=== PATIENT | female | born 1960 | race African-American/Black ===

== ENCOUNTER 2017-01-26 13:47 | Emergency (ER) | payer OTHER ==
[~2017-01-26] VITALS: Ht 162.6 cm; Wt 50.0 kg
[2017-01-26 13:49] VITALS: BP 112/72; PULSE 110; RESP 18; TEMP 98.9; O2SAT 98
--- NOTE | 2017-01-26 13:55 | PD ---
Physical Exam Time Seen by Provider: 13:55 Narrative 56 y/o female here with painful skin lesions on right lower leg. Vital signs reviewed. Seen at triage desk. Awaiting bed placement. Data Data Last Documented VS Vital Signs Date Time Temp Pulse Resp B/P (MAP) Pulse Ox O2 Delivery O2 Flow Rate FiO2 01/26/17 13:49 98.9 110 18 112/72 (85) 98 Room Air MDM Medical Record Reviewed: Yes Supervised Visit with DIANN: Ayden Vickers Jan 26, 2017 13:55
[2017-01-26] MEDS ORDERED: VENTAER INH (16:14)
[2017-01-26] MEDS ORDERED: PLAV75TA29 PO (16:14)
[2017-01-26] MEDS ORDERED: CYCL1TAB29 PO (16:34)
[2017-01-26] MEDS ORDERED: PROT40TA PO (16:34)
[2017-01-26] MEDS ORDERED: CARV3.12 PO (16:34)
[2017-01-26] MEDS ORDERED: FERR325T8 PO (16:34)
--- NOTE | 2017-01-26 16:42 | PD ---
HPI Chief Complaint: Skin Problem Time Seen by Provider: 16:14 Travel History International Travel<30 days: No Contact w/Intl Traveler<30days: No Traveled to known affect area: No History of Present Illness HPI 56-year-old female with history of diabetes, chronic leg edema, chronic right leg wounds, presents to the ER today because of ongoing leg wound since November, states that her wound care nurse Center in. She denies any chest pains, shortness of breath, or any other symptoms. Modifying Factors: None Associated Signs & Symptoms: Chronic leg: His and chronic leg edema Risk Factors: Diabetic PFSH Past Medical History Asthma: Yes Diabetes: Yes Patient Takes Glucophage: No Diminished Hearing: Yes (R perforated ear drum ) ?: Not Social History Alcohol Use: Yes (daily) Tobacco Use: Yes (1/2 ppd) Substance Use: No Allergies-Medications (Allergen,Severity, Reaction): Coded Allergies: No Known Allergies (Unverified , 01/26/17) Reported Meds & Prescriptions Reported Meds & Active Scripts Active Reported Flexeril (Cyclobenzaprine HCl) 10 Mg Tab 10 Mg PO TID Carvedilol 3.125 Mg Tab 3.125 Mg PO BID Ferrous Sulfate 325 Mg (65 Mg Iron) Tablet 325 Mg PO BIDPC Protonix (Pantoprazole Sodium) 40 Mg Tab 40 Mg PO DAILY Ventolin Hfa 18 GM Inh (Albuterol Sulfate) Unknown Strength Aer Unknown Dose INH Q4H PRN Plavix (Clopidogrel Bisulfate) Unknown Strength Tab Unknown Dose PO DAILY Review of Systems Except as stated in HPI: all other systems reviewed are Neg Physical Exam Narrative GENERAL: Well-developed middle age -[place] female patient currently in mild distress. Awake and oriented 3. SKIN: Focused skin assessment warm/dry. HEAD: Atraumatic. Normocephalic. EYES: Pupils equal and round. No scleral icterus. No injection or drainage. ENT: No nasal bleeding or discharge. Mucous membranes pink and moist. NECK: Trachea midline. No JVD. CARDIOVASCULAR: Regular rate and rhythm. No murmur appreciated. RESPIRATORY: No accessory muscle use. Clear to auscultation. Breath sounds equal bilaterally. GASTROINTESTINAL: Abdomen soft, non-tender, nondistended. Hepatic and splenic margins not palpable. MUSCULOSKELETAL: No obvious deformities. No clubbing. No cyanosis. +1 bilateral pitting edema the legs. There are 1-2 cm circular shallow ulcers and wounds to the right leg and bautista area. No significant erythema identified. NEUROLOGICAL: Awake and alert. No obvious cranial nerve deficits. Motor grossly within normal limits. Normal speech. PSYCHIATRIC: Appropriate mood and affect; insight and judgment normal. Data Data Last Documented VS Vital Signs Date Time Temp Pulse Resp B/P (MAP) Pulse Ox O2 Delivery O2 Flow Rate FiO2 01/26/17 13:49 98.9 110 18 112/72 (85) 98 Room Air Orders Orders Complete Blood Count With Diff (01/26/17 16:14) Comprehensive Metabolic Panel (01/26/17 16:14) Prothrombin Time / Inr (Pt) (01/26/17 16:14) Act Partial Throm Time (Ptt) (01/26/17 16:14) Us Leg Venous Doppler (01/26/17 16:14) Acetaminophen (Tylenol) (01/26/17 18:15) Labs Laboratory Tests Test 01/26/17 16:50 White Blood Count 5.7 TH/MM3 Red Blood Count 3.59 MIL/MM3 Hemoglobin 9.8 GM/DL Hematocrit 30.0 % Mean Corpuscular Volume 83.6 FL Mean Corpuscular Hemoglobin 27.3 PG Mean Corpuscular Hemoglobin Concent 32.7 % Red Cell Distribution Width 29.8 % Platelet Count 211 TH/MM3 Mean Platelet Volume 6.5 FL Neutrophils (%) (Auto) 53.2 % Lymphocytes (%) (Auto) 28.6 % Monocytes (%) (Auto) 13.2 % Eosinophils (%) (Auto) 4.5 % Basophils (%) (Auto) 0.5 % Neutrophils # (Auto) 3.0 TH/MM3 Lymphocytes # (Auto) 1.6 TH/MM3 Monocytes # (Auto) 0.8 TH/MM3 Eosinophils # (Auto) 0.3 TH/MM3 Basophils # (Auto) 0.0 TH/MM3 CBC Comment AUTO DIFF Differential Comment AUTO DIFF CONFIRMED Platelet Estimate NORMAL Platelet Morphology Comment NORMAL Prothrombin Time 10.3 SEC Prothromb Time International Ratio 0.9 RATIO Activated Partial Thromboplast Time 25.2 SEC Blood Urea Nitrogen 9 MG/DL Creatinine 0.73 MG/DL Random Glucose 90 MG/DL Total Protein 9.2 GM/DL Albumin 2.7 GM/DL Calcium Level 8.7 MG/DL Alkaline Phosphatase 115 U/L Aspartate Amino Transf (AST/SGOT) 60 U/L Alanine Aminotransferase (ALT/SGPT) 21 U/L Total Bilirubin 0.4 MG/DL Sodium Level 137 MEQ/L Potassium Level 3.9 MEQ/L Chloride Level 102 MEQ/L Carbon Dioxide Level 28.5 MEQ/L Anion Gap 7 MEQ/L Estimat Glomerular Filtration Rate 100 ML/MIN MDM Medical Decision Making Medical Screen Exam Complete: Yes Emergency Medical Condition: Yes Medical Record Reviewed: Yes Interpretation(s) Laboratory Tests Test 01/26/17 16:50 Red Blood Count 3.59 MIL/MM3 (4.00-5.30) Hemoglobin 9.8 GM/DL (11.6-15.3) Hematocrit 30.0 % (35.0-46.0) Red Cell Distribution Width 29.8 % (11.6-17.2) Mean Platelet Volume 6.5 FL (7.0-11.0) Monocytes (%) (Auto) 13.2 % (0.0-8.0) Eosinophils (%) (Auto) 4.5 % (0.0-4.0) Total Protein 9.2 GM/DL (6.4-8.2) Albumin 2.7 GM/DL (3.4-5.0) Aspartate Amino Transf (AST/SGOT) 60 U/L (15-37) Last 24 hours Impressions Lower Extremity Ultrasound 01/26/17 1614 Signed Impressions: Service Date/Time: Tuesday, January 26, 2017 16:21 - CONCLUSION: Negative for deep venous thrombosis. Inguinal adenopathy Erickson Rolle MD FACR Differential Diagnosis Chronic leg wounds/chronic leg edema/rule out DVT Narrative Course Ultrasound did not show any signs of DVT. Lab work did not show significant leukocytosis. This appears to be a chronic wound that is poorly healing because of patient's diabetes and PVD. My plan would be to give her antibiotics for the mild cellulitis. Pulses are present and she is neurovascularly intact. She will need to follow-up with primary care physician regarding ongoing issues. She should return for any worsening in pain, redness , fevers, or new symptoms as needed. The plan was discussed with the patient and she states understanding. Diagnosis Primary Impression: Chronic ulcer of leg Med/Other Pt SpecificInfo: Prescription(s) given Scripts Sulfamethoxazole-Trimethoprim (Bactrim DS) 800-160 Mg Tab 1 TAB PO BID for Infection, #14 TAB 0 Refills Prov: Susan Castro MD 01/26/17 Acetaminophen (Tylenol) 325 Mg Tab 650 MG PO Q6H Y for PAIN SCALE 1 TO 10, #20 TAB 0 Refills Prov: Susan Castro MD 01/26/17 Disposition: 01 DISCHARGE HOME Condition: Stable Susan Castro MD Jan 26, 2017 16:42
--- NOTE | 2017-01-26 16:57 | RADRPT ---
EXAM DATE/TIME: 01/26/2017 16:21 [facility] COMPARISON: No previous studies available for comparison. INDICATIONS : Right leg pain. MEDICAL HISTORY : Right perforated ear drum. Asthma. Diabetes. Right leg pain and open wounds. SURGICAL HISTORY : None. ENCOUNTER: Initial ACUITY: 1 week PAIN SCORE: 5/10 LOCATION: Right leg. TECHNIQUE: Venous ultrasound of the leg was performed from the inguinal ligament to the proximal calf. Real-mary e, color Doppler and spectral tracing, compression and augmentation techniques were used. FINDINGS: There is normal compressibility of the deep venous system from the inguinal region to the proximal ca lf. No echogenic clot is seen in the lumen of the common femoral, femoral, popliteal, and posterior tibial veins. There is a normal response of the venous system to proximal and distal augmentation an d respiration. Inguinal adenopathy measuring up to 2.6 cm is noted. CONCLUSION: Negative for deep venous thrombosis. Inguinal adenopathy Erickson Rolle MD FACR on January 26, 2017 at 16:55 Board Certified Radiologist. This report was verified electronically.
[2017-01-26 17:14] LABS: BASOPHIL % 0.5 % (0.0-2.0); EOSINOPHIL # 0.3 TH/MM3 (0-0.4); EOSINOPHIL % 4.5 % (0.0-4.0); LYMPH % 28.6 % (9.0-44.0); LYMPHOCYTE # 1.6 TH/MM3 (1.0-4.8); MEAN CELL VOLUME 83.6 FL (80.0-100.0); MEAN CORPUSCULAR HEMOGLOBIN 27.3 PG (27.0-34.0); MEAN CORPUSCULAR HGB CONC 32.7 % (32.0-36.0); MONO % 13.2 % (0.0-8.0); NEUT % 53.2 % (16.0-70.0); PLATELET COUNT 211 TH/MM3 (150-450); RED BLOOD COUNT 3.59 MIL/MM3 (4.00-5.30); RED CELL DISTRIBUTION WIDTH 29.8 % (11.6-17.2); WHITE BLOOD COUNT 5.7 TH/MM3 (4.0-11.0)
[2017-01-26 17:20] LABS: HEMO FLAGS AUTO DIFF
[2017-01-26 17:23] LABS: INTERNATIONAL NORMALIZED RATIO 0.9 RATIO; PROTHROMBIN TIME - PATIENT 10.3 SEC (9.8-11.6)
[2017-01-26 17:24] LABS: APTT (PATIENT) 25.2 SEC (24.3-30.1)
[2017-01-26 17:37] LABS: ALKALINE PHOSPHATASE 115 U/L (45-117); TOTAL BILIRUBIN ADULT 0.4 MG/DL (0.2-1.0)
[2017-01-26 17:41] LABS: ALT (GPT) 21 U/L (10-53); ANION GAP 7 MEQ/L (5-15); AST (GOT) 60 U/L (15-37); BICARBONATE 28.5 MEQ/L (21.0-32.0); BLOOD UREA NITROGEN 9 MG/DL (7-18); CHLORIDE 102 MEQ/L (98-107); GLOMERULAR FILTRATION RATE 100 ML/MIN (>89); SODIUM (NA) 137 MEQ/L (136-145)
[2017-01-26 17:42] LABS: POTASSIUM 3.9 MEQ/L (3.5-5.1)
[2017-01-26 17:57] LABS: PLATELET ESTIMATE SMEAR NORMAL (NORMAL); PLATELET MORPHOLOGY NORMAL (NORMAL); SCAN/DIFF AUTO DIFF CONFIRMED
[2017-01-26] MEDS ORDERED: BACT800T5 PO (18:05)
[2017-01-26] MEDS ORDERED: TYLE325T PO (18:05)
[2017-01-26] MEDS ORDERED: ACETAMINOPHEN 325 MG TAB PO ONE (18:15)
== END 2017-01-26 18:50 | disposition home or self-care (01) ==
LOC: NEPE 13:47
DX: E11.622 Type 2 diabetes mellitus with other skin ulcer (principal); L97.919 Non-pressure chronic ulcer of unspecified part of right lower leg with unspecified severity; I73.9 Peripheral vascular disease, unspecified; L03.115 Cellulitis of right lower limb; J45.909 Unspecified asthma, uncomplicated
CPT/HCPCS: 80053; 85025; 85610; 85730; 93971; 99284

== ENCOUNTER 2017-03-17 15:15 | Inpatient (IN) | payer OTHER ==
[~2017-03-17] VITALS: Ht 165.1 cm; Wt 54.0 kg
[~2017-03-17 15:15] MED LIST: BACT800T5 PO; CARV3.12 PO; CYCL10TA PO; FERR325T18 PO; PLAV75TA29 PO; PROT40TA PO; TYLE325T PO; VENTAER INH
[2017-03-17 15:34] VITALS: BP 199/84; PULSE 104; RESP 21; TEMP 98.4; O2SAT 99
[2017-03-17] MEDS ORDERED: ONDANSETRON HCL 4 MG/2 ML VIAL IV PUSH ONE (16:15)
[2017-03-17] MEDS ORDERED: VANCOMYCIN INJ 1,000 MG in SODIUM CHLOR 0.9% 250 ML INJ 250 ML IV ONE (16:15)
[2017-03-17] MEDS ORDERED: MORPHINE SULFATE 4 MG/ML INJ IV PUSH ONE (16:15)
--- NOTE | 2017-03-17 16:43 | PD ---
HPI Chief Complaint: Skin Problem Time Seen by Provider: 15:43 Travel History International Travel<30 days: No Contact w/Intl Traveler<30days: No Traveled to known affect area: No History of Present Illness HPI 56-year-old female that presents to the ED for evaluation of bilateral ear infections as well as right leg wounds. Per patient she's had chronic wounds in the right leg for years. Per patient she's not been following anybody since Dr. Ambrosio phillips of seeing patient's in the community clinic. She is to follow with parent she was get treatment for it at she has not taken any medications. Per patient she is to be on Plavix. She denies any history of diabetes. She states that she's been having some body aches and sweats. She's been trying to do wound care on her own and she is noted that the wound has been purulent and from the looks of it not well taking care of. Patient has paper towels on her wounds to cover them. Patient states that she has been 10 out of 10 pain on the right leg. She also complains of bilateral ear pain and purulence coming out of the ears. She states that some blood has been noted. Per patient his been ongoing for a couple days. She has not seen anybody for this. She takes no medications. No fevers chills or sweats. No other medical issues. Denies any chest pain or shortness of breath. PFSH Past Medical History Asthma: Yes Cardiovascular Problems: Yes (HTN) Diabetes: Yes Diminished Hearing: Yes (R perforated ear drum ) ?: Not Social History Alcohol Use: Yes (daily) Tobacco Use: Yes (1/2 ppd) Substance Use: No Allergies-Medications (Allergen,Severity, Reaction): Coded Allergies: No Known Allergies (Unverified , 01/26/17) Reported Meds & Prescriptions Reported Meds & Active Scripts Active Bactrim DS (Sulfamethoxazole-Trimethoprim) 800-160 Mg Tab 1 Tab PO BID Tylenol (Acetaminophen) 325 Mg Tab 650 Mg PO Q6H PRN Reported Flexeril (Cyclobenzaprine HCl) 10 Mg Tab 10 Mg PO TID Carvedilol 3.125 Mg Tab 3.125 Mg PO BID Ferrous Sulfate 325 Mg (65 Mg Iron) Tablet 325 Mg PO BIDPC Protonix (Pantoprazole Sodium) 40 Mg Tab 40 Mg PO DAILY Ventolin Hfa 18 GM Inh (Albuterol Sulfate) Unknown Strength Aer Unknown Dose INH Q4H PRN Plavix (Clopidogrel Bisulfate) Unknown Strength Tab Unknown Dose PO DAILY Review of Systems Except as stated in HPI: all other systems reviewed are Neg Physical Exam Narrative GENERAL: SKIN: Warm and dry. HEAD: Atraumatic. Normocephalic. EYES: Pupils equal and round. No scleral icterus. No injection or drainage. ENT: No nasal bleeding or discharge. Mucous membranes pink and moist. Tongue is midline. No uvula deviation. TMs appear to be intact bilaterally. Patient has bilateral drainage from both years. Patient is having inflammation on both ears. NECK: Trachea midline. No JVD. CARDIOVASCULAR: Regular rate and rhythm. No murmurs, S3, S4. RESPIRATORY: No accessory muscle use. Clear to auscultation. Breath sounds equal bilaterally. GASTROINTESTINAL: Abdomen soft, non-tender, nondistended. Hepatic and splenic margins not palpable. MUSCULOSKELETAL: Extremities without clubbing, cyanosis, or edema. No obvious deformities. Patient does have significant skin ulcers and wounds to the right leg on the anterior and posterior aspect. Purulence noted. Very foul smelling. 2+ pulses in the lower extremities bilaterally. Tenderness to palpation. Sensation appears to be intact. NEUROLOGICAL: Awake and alert. No obvious cranial nerve deficits. Motor grossly within normal limits. Five out of 5 muscle strength in the arms and legs. Normal speech. PSYCHIATRIC: Appropriate mood and affect; insight and judgment normal. Data Data Last Documented VS Vital Signs Date Time Temp Pulse Resp B/P (MAP) Pulse Ox O2 Delivery O2 Flow Rate FiO2 03/17/17 15:34 98.4 104 21 199/84 (122) 99 Orders Orders Electrocardiogram (03/17/17 15:52) Complete Blood Count With Diff (03/17/17 15:52) Comprehensive Metabolic Panel (03/17/17 15:52) Prothrombin Time / Inr (Pt) (03/17/17 15:52) Act Partial Throm Time (Ptt) (03/17/17 15:52) Blood Culture (03/17/17 15:52) C-Reactive Protein (Crp) (03/17/17 15:52) Urinalysis - C+S If Indicated (03/17/17 15:52) Magnesium (Mg) (03/17/17 15:52) Wound Culture And Gram Stain (03/17/17 15:52) Iv Access Insert/Monitor (03/17/17 15:52) Ecg Monitoring (03/17/17 15:52) Oximetry (03/17/17 15:52) Vancomycin Inj (Vancomycin Inj) (03/17/17 16:15) Morphine Inj (Morphine Inj) (03/17/17 16:15) Ondansetron Inj (Zofran Inj) (03/17/17 16:15) Lactic Acid Sepsis Protocol (03/17/17 16:03) Tibia/Fibula (Ap/Lat) (03/17/17 ) MDM Medical Decision Making Medical Screen Exam Complete: Yes Emergency Medical Condition: Yes Medical Record Reviewed: Yes Differential Diagnosis Otitis externa versus otitis media versus cellulitis versus infected wounds versus osteomyelitis Narrative Course 56-year-old female that presents to the ED for evaluation of bilateral ear infections. Patient was properly examined and was found to have signs and symptoms consistent with otitis externa bilaterally as well as chronically infected wound. The wound does appear to be more severe than the ears. Patient is tachycardic and states having some subjective fevers. At this time I recommend labs and imaging. Patient agrees. Patient was started on IV pain medication and antibiotics. Case will be signed out to incoming provider pending disposition a likely admission. Vipin Arzate Mar 17, 2017 16:43
[2017-03-17 16:58] LABS: AUTOMATED NEUTROPHIL # 4.5 TH/MM3 (1.8-7.7); BASOPHIL % 0.4 % (0.0-2.0); EOSINOPHIL # 0.1 TH/MM3 (0-0.4); EOSINOPHIL % 1.8 % (0.0-4.0); LYMPH % 25.5 % (9.0-44.0); LYMPHOCYTE # 1.8 TH/MM3 (1.0-4.8); MEAN CELL VOLUME 95.1 FL (80.0-100.0); MEAN CORPUSCULAR HEMOGLOBIN 32.2 PG (27.0-34.0); MEAN CORPUSCULAR HGB CONC 33.8 % (32.0-36.0); MONO % 9.5 % (0.0-8.0); NEUT % 62.8 % (16.0-70.0); PLATELET COUNT 243 TH/MM3 (150-450); RED BLOOD COUNT 2.84 MIL/MM3 (4.00-5.30); RED CELL DISTRIBUTION WIDTH 23.6 % (11.6-17.2); WHITE BLOOD COUNT 7.2 TH/MM3 (4.0-11.0)
[2017-03-17 17:01] LABS: HEMO FLAGS AUTO DIFF
--- NOTE | 2017-03-17 17:01 | PD ---
Physical Exam Date Seen by Provider: Mar 17, 2017 Time Seen by Provider: 17:01 Narrative 56-year-old Afro-Bhut[place] female seen in the ambulance [facility] by Vipin Norton with ongoing lower extremity open wounds and probable cellulitis as well as bilateral otitis externa. Labs have been ordered and placed on this patient I received her into the med bed echo 55. Labs are pending, and wound care is ordered. Patient has no known drug allergies. No history of diabetes, no history of sickle cell, but is supposed to be on Plavix, and continues to smoke. She has had some chills but denies specific fever complaints. Data Data Last Documented VS Vital Signs Date Time Temp Pulse Resp B/P (MAP) Pulse Ox O2 Delivery O2 Flow Rate FiO2 03/17/17 17:29 98 Room Air 03/17/17 17:29 103 03/17/17 17:24 97.7 15 Orders Orders Electrocardiogram (03/17/17 15:52) Complete Blood Count With Diff (03/17/17 15:52) Comprehensive Metabolic Panel (03/17/17 15:52) Prothrombin Time / Inr (Pt) (03/17/17 15:52) Act Partial Throm Time (Ptt) (03/17/17 15:52) Blood Culture (03/17/17 15:52) C-Reactive Protein (Crp) (03/17/17 15:52) Urinalysis - C+S If Indicated (03/17/17 15:52) Magnesium (Mg) (03/17/17 15:52) Wound Culture And Gram Stain (03/17/17 15:52) Iv Access Insert/Monitor (03/17/17 15:52) Ecg Monitoring (03/17/17 15:52) Oximetry (03/17/17 15:52) Vancomycin Inj (Vancomycin Inj) (03/17/17 16:15) Morphine Inj (Morphine Inj) (03/17/17 16:15) Ondansetron Inj (Zofran Inj) (03/17/17 16:15) Lactic Acid Sepsis Protocol (03/17/17 16:03) Tibia/Fibula (Ap/Lat) (03/17/17 ) Wound Care (03/17/17 16:57) Wound Culture And Gram Stain (03/17/17 16:57) Piperacil-Tazo 4.5 Gm Premix (Zosyn 4.5 (03/17/17 17:30) Sepsis Workup Initiated (03/17/17 ) Lactic Acid Sepsis Protocol (03/17/17 17:20) Sodium Chlor 0.9% 1000 Ml Inj (Ns 1000 M (03/17/17 17:20) Sodium Chlor 0.9% 1000 Ml Inj (Ns 1000 M (03/17/17 17:20) Sodium Chlor 0.9% 1000 Ml Inj (Ns 1000 M (03/17/17 17:20) Labs Laboratory Tests Test 03/17/17 16:15 03/17/17 16:21 03/17/17 17:25 03/17/17 18:00 White Blood Count 7.2 TH/MM3 Red Blood Count 2.84 MIL/MM3 Hemoglobin 9.2 GM/DL Hematocrit 27.0 % Mean Corpuscular Volume 95.1 FL Mean Corpuscular Hemoglobin 32.2 PG Mean Corpuscular Hemoglobin Concent 33.8 % Red Cell Distribution Width 23.6 % Platelet Count 243 TH/MM3 Mean Platelet Volume 6.8 FL Neutrophils (%) (Auto) 62.8 % Lymphocytes (%) (Auto) 25.5 % Monocytes (%) (Auto) 9.5 % Eosinophils (%) (Auto) 1.8 % Basophils (%) (Auto) 0.4 % Neutrophils # (Auto) 4.5 TH/MM3 Lymphocytes # (Auto) 1.8 TH/MM3 Monocytes # (Auto) 0.7 TH/MM3 Eosinophils # (Auto) 0.1 TH/MM3 Basophils # (Auto) 0.0 TH/MM3 CBC Comment AUTO DIFF Differential Comment AUTO DIFF CONFIRMED Platelet Estimate NORMAL Platelet Morphology Comment NORMAL Spherocytes OCC Acanthocytes OCC Prothrombin Time 10.7 SEC Prothromb Time International Ratio 1.0 RATIO Activated Partial Thromboplast Time 29.1 SEC Blood Urea Nitrogen 7 MG/DL Creatinine 0.63 MG/DL Random Glucose 78 MG/DL Total Protein 8.9 GM/DL Albumin 2.6 GM/DL Calcium Level 8.5 MG/DL Magnesium Level 1.8 MG/DL Alkaline Phosphatase 112 U/L Aspartate Amino Transf (AST/SGOT) 40 U/L Alanine Aminotransferase (ALT/SGPT) 19 U/L Total Bilirubin 0.3 MG/DL Sodium Level 134 MEQ/L Potassium Level 4.0 MEQ/L Chloride Level 102 MEQ/L Carbon Dioxide Level 25.2 MEQ/L Anion Gap 7 MEQ/L Estimat Glomerular Filtration Rate 119 ML/MIN C-Reactive Protein 0.83 MG/DL Lactic Acid Level 3.2 mmol/L 1.2 mmol/L Urine Color LIGHT-YELLOW Urine Turbidity CLEAR Urine pH 6.0 Urine Specific [place] 1.009 Urine Protein 30 mg/dL Urine Glucose (UA) NEG mg/dL Urine Ketones NEG mg/dL Urine Occult Blood NEG Urine Nitrite NEG Urine Bilirubin NEG Urine Urobilinogen LESS THAN 2.0 MG/DL Urine Leukocyte Esterase LARGE Urine RBC 3 /hpf Urine WBC 5 /hpf Urine Bacteria RARE /hpf Urine Mucus FEW /lpf Urine Yeast (Budding) OCC Microscopic Urinalysis Comment CULT NOT INDICATED MDM Medical Record Reviewed: Yes Supervised Visit with DIANN: Yes Differential Diagnosis Peripheral vascular disease. Chronic ulcers to the right lower extremity. Cellulitis. Osteomyelitis. Otitis externa. Narrative Course CBC shows WBC of 7.2, RBC of 2.84, hemoglobin 9.2, hematocrit of 27.0. Patient is noted to have spherocytes and acanthocytes. Coagulation studies are normal. Chemistries significant for sodium 134, C-reactive protein of 0.83, total protein 8.9, albumin is 2.6. First lactic acid is 3.2. Repeat lactic acid is 1.2 after 3 L of normal saline. Urinalysis shows 30 of protein, large leukocytes esterase, rare bacteria, few mucus, and occasional yeast. X-ray of the right lower extremity is unremarkable for osteomyelitis or free air. Blood cultures are pending. Patient was given 4.5 mg Zofran and 1000 mg vancomycin IV. Patient was discussed with the hospitalist who agreed to admit the patient for observation. Diagnosis Primary Impression: Cellulitis of right lower extremity without foot Additional Impression: Otitis externa Admitting Information Admitting Physician Requests: Observation Condition: Stable Markel Rodriguez Mar 17, 2017 17:01
[2017-03-17 17:09] LABS: APTT (PATIENT) 29.1 SEC (24.3-30.1); PROTHROMBIN TIME - PATIENT 10.7 SEC (9.8-11.6)
[2017-03-17] MEDS ORDERED: SODIUM CHLOR 0.9% 1000 ML INJ 100 ML IV ONE (17:20)
[2017-03-17] MEDS ORDERED: SODIUM CHLOR 0.9% 1000 ML INJ 1,000 ML IV ONE ×2 (17:20)
[2017-03-17 17:24] VITALS: BP 218/126; PULSE 100; RESP 15; TEMP 97.7; O2SAT 98
[2017-03-17 17:25] LABS: ALT (GPT) 19 U/L (10-53)
[2017-03-17 17:27] LABS: ALKALINE PHOSPHATASE 112 U/L (45-117); TOTAL BILIRUBIN ADULT 0.3 MG/DL (0.2-1.0)
[2017-03-17 17:29] VITALS: BP 168/83; PULSE 103; O2SAT 98
[2017-03-17] MEDS ORDERED: PIPERACIL-TAZO 4.5 GM PREMIX 100 ML IV ONE (17:30)
[2017-03-17 17:32] LABS: ANION GAP 7 MEQ/L (5-15); AST (GOT) 40 U/L (15-37); BICARBONATE 25.2 MEQ/L (21.0-32.0); BLOOD UREA NITROGEN 7 MG/DL (7-18); CHLORIDE 102 MEQ/L (98-107); GLOMERULAR FILTRATION RATE 119 ML/MIN (>89); MAGNESIUM 1.8 MG/DL (1.5-2.5); SODIUM (NA) 134 MEQ/L (136-145)
[2017-03-17 17:55] LABS: PLATELET ESTIMATE SMEAR NORMAL (NORMAL); PLATELET MORPHOLOGY NORMAL (NORMAL); SCAN/DIFF AUTO DIFF CONFIRMED
--- NOTE | 2017-03-17 17:57 | RADRPT ---
EXAM DATE/TIME: 03/17/2017 17:36 [facility] COMPARISON: No previous studies available for comparison. INDICATIONS : Right tibia/fibula inflammation and open wounds. MEDICAL HISTORY : Right perforated ear drum. Asthma. Diabetes. Right leg pain and open wounds. SURGICAL HISTORY : None. ENCOUNTER: Initial ACUITY: 1 year PAIN SCORE: 10/10 LOCATION: Right tibia/fibula FINDINGS: Two view examination of the right tibia demonstrates no evidence of fracture or dislocation. Bony mi neralization is normal. No retained foreign body is identified. CONCLUSION: 1. No acute bony abnormality identified. Jj Rolle MD on March 17, 2017 at 17:55 Board Certified Radiologist. This report was verified electronically.
[2017-03-17 17:59] LABS: BACTERIA, URINE RARE /hpf; BLOOD, URINE NEG (NEG); COMMENT (UR) CULT NOT INDICATED; CULTURE IF INDICATED CULT NOT INDICATED; GLUCOSE,URINE NEG (NEG); KETONE, URINE NEG (NEG); MUCUS URINE FEW /lpf (OCC); NITRITE,URINE NEG (NEG); URINE COLOR LIGHT-YELLOW (YELLW/STRAW)
[2017-03-17 18:03] LABS: ACANTHOCYTES OCC (NORMAL); SPHEROCYTES OCC (NORMAL)
[2017-03-17 18:43] LABS: LACTIC ACID GHOST NOT REPORTABLE
--- NOTE | 2017-03-17 19:25 | HHI.HP ---
[facility] Unknown Admission Diagnosis Diagnoses: (1) Cellulitis of leg, right Diagnosis: Principal (2) UTI (urinary tract infection) Diagnosis: Principal (3) HTN (hypertension) Diagnosis: Principal (4) Alcohol abuse Diagnosis: Principal (5) Tobacco abuse Diagnosis: Principal Travel History International Travel<30 Days: No Contact w/Intl Traveler <30 Da: No Traveled to Known Affected Are: No History of Present Illness This is a 56-year-old Homeless female with a PMH of HTN, Alcohol Abuse and Tobacco Abuse who presented to the ER with complaints of right lower extremity cellulitis. Previously following w/ Dr. Humphrey for wound care, however pt w/ poor follow-up and non-compliant. Reports worsening drainage from right leg for several days. Denies fever, chills or sick contacts. On arrival, BP 199/84 , HR 104, O2 sat 99% on RA, Afebrile. WBC normal. Normal neutrophil calm. Lactic Acid 3.2, repeat 1.2. CRP 0.83. INR 1.0. UA positive for UTI. Right Tib Fib X-ray with no acute abnormalities. S/p Wound/Blood Cultures in ER in addition to Vanc/Zosyn. Review of Systems Except as stated in HPI: all other systems reviewed are Neg ROS: 14 point review of systems otherwise negative. Past Family Social History Past Medical History PMH: HTN, Alcohol Abuse and Tobacco Abuse Past Surgical History PAST SURGICAL HISTORY: None Allergies: Coded Allergies: No Known Allergies (Unverified Allergy, Unknown, 03/17/17) Family History PAST FAMILY HISTORY: Reviewed. No h/o DM or CAD Social History PAST SOCIAL HISTORY: Drinks daily, 3-4 beers/day. Smokes 1/2ppd. Negative for drugs. Physical Exam Vital Signs Vital Signs Date Time Temp Pulse Resp B/P (MAP) Pulse Ox O2 Delivery O2 Flow Rate FiO2 03/17/17 17:29 98 Room Air 03/17/17 17:29 103 168/83 (111) 03/17/17 17:24 97.7 100 15 218/126 (156) 98 Room Air 03/17/17 15:34 98.4 104 21 199/84 (122) 99 Physical Exam PE: GENERAL: Malaise black female in no acute distress. HEENT: PERRLA, EOMI. No scleral icterus or conjunctival pallor. No lid lag or facial droop. CARDIOVASCULAR: Regular rate and rhythm. No obvious murmurs to auscultation. No chest tenderness to palpation. RESPIRATORY: No obvious rhonchi or wheezing. Clear to auscultation. Breath sounds equal bilaterally. GASTROINTESTINAL: Abdomen soft, non-tender, nondistended. BS normal. MUSCULOSKELETAL: Extremities without clubbing, cyanosis, or edema. No obvious deformities. RLE w/ clean dressing placed in ER, +ulcers w/ purulent drainage, foul smelling. Pulses intact. NEUROLOGICAL: Awake, alert and oriented x4. No focal neurologic deficits. Moving both upper and lower extremities spontaneously. Laboratory Laboratory Tests Test 03/17/17 16:15 03/17/17 16:21 03/17/17 17:25 03/17/17 18:00 White Blood Count 7.2 Red Blood Count 2.84 Hemoglobin 9.2 Hematocrit 27.0 Mean Corpuscular Volume 95.1 Mean Corpuscular Hemoglobin 32.2 Mean Corpuscular Hemoglobin Concent 33.8 Red Cell Distribution Width 23.6 Platelet Count 243 Mean Platelet Volume 6.8 Neutrophils (%) (Auto) 62.8 Lymphocytes (%) (Auto) 25.5 Monocytes (%) (Auto) 9.5 Eosinophils (%) (Auto) 1.8 Basophils (%) (Auto) 0.4 Neutrophils # (Auto) 4.5 Lymphocytes # (Auto) 1.8 Monocytes # (Auto) 0.7 Eosinophils # (Auto) 0.1 Basophils # (Auto) 0.0 CBC Comment AUTO DIFF Differential Comment AUTO DIFF CONFIRMED Platelet Estimate NORMAL Platelet Morphology Comment NORMAL Spherocytes OCC Acanthocytes OCC Prothrombin Time 10.7 Prothromb Time International Ratio 1.0 Activated Partial Thromboplast Time 29.1 Blood Urea Nitrogen 7 Creatinine 0.63 Random Glucose 78 Total Protein 8.9 Albumin 2.6 Calcium Level 8.5 Magnesium Level 1.8 Alkaline Phosphatase 112 Aspartate Amino Transf (AST/SGOT) 40 Alanine Aminotransferase (ALT/SGPT) 19 Total Bilirubin 0.3 Sodium Level 134 Potassium Level 4.0 Chloride Level 102 Carbon Dioxide Level 25.2 Anion Gap 7 Estimat Glomerular Filtration Rate 119 C-Reactive Protein 0.83 Lactic Acid Level 3.2 1.2 Urine Color LIGHT-YELLOW Urine Turbidity CLEAR Urine pH 6.0 Urine Specific Maiden 1.009 Urine Protein 30 Urine Glucose (UA) NEG Urine Ketones NEG Urine Occult Blood NEG Urine Nitrite NEG Urine Bilirubin NEG Urine Urobilinogen LESS THAN 2.0 Urine Leukocyte Esterase LARGE Urine RBC 3 Urine WBC 5 Urine Bacteria RARE Urine Mucus FEW Urine Yeast (Budding) OCC Microscopic Urinalysis Comment CULT NOT INDICATED Date/Time Source Procedure Growth Status 03/17/17 16:20 Blood Peripheral Aerobic Blood Culture Pending Received 03/17/17 16:20 Blood Peripheral Anaerobic Blood Culture Pending Received 03/17/17 17:00 Wound Leg Gram Stain - Final Resulted 03/17/17 17:00 Wound Leg Wound Culture Pending Resulted Result Diagram: 03/17/17 1615 03/17/17 1615 Caprini VTE Risk Assessment Caprini VTE Risk Assessment: Mod/High Risk (score >= 2) Caprini Risk Assessment Model Point Value = 1 Point Value = 2 Point Value = 3 Point Value = 5 Age 41-60 Minor surgery BMI > 25 kg/m2 Swollen legs Varicose veins or History of unexplained or recurrent spontaneous Oral contraceptives or hormone replacement Sepsis (< 1 month) Serious lung disease, including pneumonia (< 1 month) Abnormal pulmonary function Acute myocardial infarction Congestive heart failure (< 1 month) History of inflammatory bowel disease Medical patient at bed rest Age 61-74 Arthroscopic surgery Major open surgery (> 45 min) Laparoscopic surgery (> 45 min) Malignancy Confined to bed (> 72 hours) Immobilizing plaster cast Central venous access Age >= 75 History of VTE Family history of VTE Factor V Leiden Prothrombin [id number] Lupus anticoagulant Anticardiolipin antibodies Elevated serum homocysteine Heparin-induced thrombocytopenia Other congenital or acquired thrombophilia Stroke (< 1 month) Elective arthroplasty Hip, pelvis, or leg fracture Acute spinal cord injury (< 1 month) Prophylaxis Regimen Total Risk Factor Score Risk Level Prophylaxis Regimen 0-1 Low Early ambulation 2 Moderate Order ONE of the following: *Sequential Compression Device (SCD) *Heparin 5000 units SQ BID 3-4 Higher Order ONE of the following medications: *Heparin 5000 units SQ TID *Enoxaparin/Lovenox 40 mg SQ daily (WT < 150 kg, CrCl > 30 mL/min) *Enoxaparin/Lovenox 30 mg SQ daily (WT < 150 kg, CrCl > 10-29 mL/min) *Enoxaparin/Lovenox 30 mg SQ BID (WT < 150 kg, CrCl > 30 mL/min) AND/OR *Sequential Compression Device (SCD) 5 or more Highest Order ONE of the following medications: *Heparin 5000 units SQ TID (Preferred with Epidurals) *Enoxaparin/Lovenox 40 mg SQ daily (WT < 150 kg, CrCl > 30 mL/min) *Enoxaparin/Lovenox 30 mg SQ daily (WT < 150 kg, CrCl > 10-29 mL/min) *Enoxaparin/Lovenox 30 mg SQ BID (WT < 150 kg, CrCl > 30 mL/min) AND *Sequential Compression Device (SCD) Assessment and Plan Problem List: (1) Cellulitis of leg, right ICD Code: L03.115 - Cellulitis of right lower limb (2) UTI (urinary tract infection) ICD Code: N39.0 - Urinary tract infection, site not specified (3) HTN (hypertension) ICD Code: I10 - Essential (primary) hypertension (4) Alcohol abuse ICD Code: F10.10 - Alcohol abuse, uncomplicated (5) Tobacco abuse ICD Code: Z72.0 - Tobacco use Assessment and Plan A/P: 1. RLE Cellulitis: +purulent, foul-smelling drainage, s/p Blood/Wound Cultures , Vanc/Zosyn in ER, clean dressing placed. Admit for Observation for continued IV Abx, Wound Management, Follow up cultures. H/o noncompliance, pt urged to follow-up and continue treatment upon discharge. 2. UTI: U/a w/ LE, +bacteriuria, continue w/ IV Abx for coverage of UTI as well. 3. HTN: BP uncontrolled, non-compliant w/ meds. BP 199/84, HR 104 on arrival , Lopressor IV x1, monitor BP, start antihypertensives as needed. 4. Alcohol Abuse: Drinks daily, high risk for withdrawal. CIWA, Seizure Precautions, MVT/Thiamine/Folate 5. Tobacco Abuse: Ativan/NicoDerm prn if needed. 6. DVT Prophylaxis: Heparin sq 7. Social work for d/c planning as needed. 8. Case discussed w/ ER physician at length. Una Loco MD Mar 17, 2017 19:25
[2017-03-17] MEDS ORDERED: LORazepam 2 MG TAB PO PRN (19:30)
[2017-03-17] MEDS ORDERED: FLUMAZENIL 0.5 MG/5 ML VIAL IV PUSH PRN (19:30)
[2017-03-17] MEDS ORDERED: ONDANSETRON HCL 4 MG/2 ML VIAL IVP PRN (19:30)
[2017-03-17] MEDS ORDERED: SODIUM CHLORIDE 0.9% FLUSH 10 ML FLUSH IV FLUSH PRN (19:30)
[2017-03-17] MEDS ORDERED: HALOPERIDOL LACTATE 5 MG/ML AMP IM PRN (19:30)
[2017-03-17] MEDS ORDERED: LORazepam 2 MG/ML VIAL IV PUSH PRN ×4 (19:30)
[2017-03-17] MEDS ORDERED: Vancomycin Consult Pharmacy 1 EA OTHER SCH (19:30)
[2017-03-17] MEDS ORDERED: BISACODYL 10 MG SUPP RECTAL PRN (19:30)
[2017-03-17] MEDS ORDERED: SENNOSIDES 8.6 MG TAB PO PRN (19:30)
[2017-03-17] MEDS ORDERED: LACTULOSE SYRUP 20 GM/30 ML CUP PO PRN (19:30)
[2017-03-17] MEDS ORDERED: MAGNESIUM HYDROXIDE SUSP 30 ML CUP PO PRN (19:30)
[2017-03-17] MEDS ORDERED: LORazepam 1 MG TAB PO PRN (19:30)
[2017-03-17 20:00] VITALS: BP 181/117; PULSE 110; RESP 16; O2SAT 97
[2017-03-17] MEDS ORDERED: METOPROLOL TARTRATE 5 MG/5 ML VIAL IV PUSH ONE (20:15)
[2017-03-17] MEDS: SODIUM CHLOR 0.9% 1000 ML INJ 1,000 ML IV SCH (20:36)
[2017-03-17 20:44] VITALS: BP 128/70; PULSE 89
[2017-03-17] MEDS: SODIUM CHLORIDE 0.9% FLUSH 10 ML FLUSH IV FLUSH SCH (21:00)
[2017-03-17 22:21] VITALS: BP 133/83; PULSE 105; RESP 18; TEMP 98.1; O2SAT 99
[2017-03-18 00:25] VITALS: BP 200/91; PULSE 105; RESP 18; TEMP 98.1; O2SAT 94
[2017-03-18] MEDS ORDERED: cloNIDine HCL 0.1 MG TAB PO ONE (00:45)
[2017-03-18] MEDS: DOCUSATE SODIUM 50 MG/SENNA 8.6 MG TAB PO SCH ×3 (01:02→22:45)
[2017-03-18] MEDS: PIPERACIL-TAZO 4.5 GM PREMIX 100 ML IV SCH ×4 (01:03→11:33)
[2017-03-18 02:14] VITALS: BP 155/78; PULSE 88
[2017-03-18 04:29] VITALS: BP 184/88; PULSE 103; RESP 18; TEMP 98.5; O2SAT 93
[2017-03-18] MEDS: cloNIDine HCL 0.1 MG TAB PO PRN (05:01)
[2017-03-18] MEDS: SODIUM CHLOR 0.9% 1000 ML INJ 1,000 ML IV SCH ×2 (05:03→16:58)
[2017-03-18] MEDS: VANCOMYCIN 1,000 MG/NS 250 ML IV SCH ×4 (06:28→16:58)
[2017-03-18 07:25] VITALS: BP 123/83; PULSE 89; RESP 18; TEMP 98.3; O2SAT 92
[2017-03-18 07:43] LABS: AUTOMATED NEUTROPHIL # 3.4 TH/MM3 (1.8-7.7); BASOPHIL % 0.4 % (0.0-2.0); EOSINOPHIL # 0.2 TH/MM3 (0-0.4); EOSINOPHIL % 3.2 % (0.0-4.0); HEMATOCRIT 28.9 % (35.0-46.0); HEMO FLAGS DIFF FINAL; LYMPH % 22.3 % (9.0-44.0); LYMPHOCYTE # 1.2 TH/MM3 (1.0-4.8); MEAN CELL VOLUME 91.2 FL (80.0-100.0); MEAN CORPUSCULAR HEMOGLOBIN 30.9 PG (27.0-34.0); MEAN CORPUSCULAR HGB CONC 33.9 % (32.0-36.0); MONO % 12.4 % (0.0-8.0); NEUT % 61.7 % (16.0-70.0); PLATELET COUNT 214 TH/MM3 (150-450); RED BLOOD COUNT 3.16 MIL/MM3 (4.00-5.30); RED CELL DISTRIBUTION WIDTH 23.3 % (11.6-17.2); WHITE BLOOD COUNT 5.6 TH/MM3 (4.0-11.0)
[2017-03-18 08:09] LABS: ANION GAP 8 MEQ/L (5-15); AST (GOT) 33 U/L (15-37); BICARBONATE 26.3 MEQ/L (21.0-32.0); BLOOD UREA NITROGEN 9 MG/DL (7-18); CHLORIDE 103 MEQ/L (98-107); GLOMERULAR FILTRATION RATE 90 ML/MIN (>89); POTASSIUM 3.3 MEQ/L (3.5-5.1); SODIUM (NA) 137 MEQ/L (136-145)
[2017-03-18 08:12] LABS: ALKALINE PHOSPHATASE 103 U/L (45-117); ALT (GPT) 18 U/L (10-53); TOTAL BILIRUBIN ADULT 0.3 MG/DL (0.2-1.0)
[2017-03-18] MEDS: HEPARIN SODIUM - SQ 10,000 UNITS/ML VIAL SQ SCH ×2 (08:35→22:45)
[2017-03-18] MEDS: MULTIVITAMINS/MINERALS THERAPEUTIC TAB PO SCH (08:35)
[2017-03-18] MEDS: FOLIC ACID 1 MG TAB PO SCH (08:35)
[2017-03-18] MEDS: THIAMINE HCL 100 MG TAB PO SCH (08:35)
[2017-03-18] MEDS: SODIUM CHLORIDE 0.9% FLUSH 10 ML FLUSH IV FLUSH SCH ×2 (08:36→22:45)
[2017-03-18] MEDS ORDERED: INFLUENZA VIRUS VACCINE (QUADRIVALENT) 0.5 ML SYR IM ONE (09:00)
[2017-03-18] MEDS ORDERED: PNEUMOCOCCAL POLYVALENT INJ 25 MCG/0.5 ML SYR IM ONE (09:00)
[2017-03-18] MEDS ORDERED: POTASSIUM CHLORIDE 20 MEQ CONTROLLED RELEASE TAB PO ONE (11:00)
[2017-03-18] MEDS: CARVEDILOL 3.125 MG TAB PO SCH ×2 (11:26→22:45)
[2017-03-18 11:59] VITALS: BP 188/88; PULSE 81; RESP 18; TEMP 98.9; O2SAT 96
--- NOTE | 2017-03-18 13:10 | RADRPT ---
EXAM DATE/TIME: 03/18/2017 12:49 [facility] COMPARISON: TIBIA/FIBULA RIGHT (AP/LAT), March 17, 2017, 17:36. INDICATIONS : Evaluate for abscess. MEDICAL HISTORY : Right perforated ear drum. Asthma. Diabetes. SURGICAL HISTORY : None. ENCOUNTER: Subsequent ACUITY: 3 days PAIN SCORE: 9/10 LOCATION: Right leg. AREA EVALUATED: Open wounds lower right leg. Medial bautista and medial calf. FINDINGS: MASSES: None. FLUID COLLECTIONS: None. OTHER: Negative. CONCLUSION: Negative exam with no evidence of abscess. Gonsalo Burris MD on March 18, 2017 at 13:08 Board Certified Radiologist. This report was verified electronically.
--- NOTE | 2017-03-18 13:13 | HHI.PR ---
Subjective Remarks patient has severe pain in her leg Very foul-smelling when I undressed the wound Extremely tender to touch Unable to appreciate good pulse in the lower extremity Objective Vitals Vital Signs Date Time Temp Pulse Resp B/P (MAP) Pulse Ox O2 Delivery O2 Flow Rate FiO2 03/18/17 11:59 98.9 81 18 188/88 (121) 96 03/18/17 07:25 98.3 89 18 123/83 (96) 92 03/18/17 04:29 98.5 103 18 184/88 (120) 93 03/18/17 02:14 88 155/78 (103) 03/18/17 00:25 98.1 105 18 200/91 (127) 94 03/17/17 22:21 98.1 105 18 133/83 (100) 99 03/17/17 22:00 03/17/17 20:44 89 128/70 (89) 03/17/17 20:00 110 16 181/117 (138) 97 Nasal Cannula 2.00 03/17/17 17:29 98 Room Air 03/17/17 17:29 103 168/83 (111) 03/17/17 17:24 97.7 100 15 218/126 (156) 98 Room Air 03/17/17 15:34 98.4 104 21 199/84 (122) 99 I/O 03/17/17 03/17/17 03/17/17 03/18/17 03/18/17 03/18/17 07:00 15:00 23:00 07:00 15:00 23:00 Intake Total 1250 ml 1750 ml Balance 1250 ml 1750 ml Intake Oral 750 ml IV Total 1250 ml 1000 ml # Voids 2 Result Diagram: 03/18/17 0610 03/18/17 0610 Objective Remarks GENERAL: This is a well-nourished, well-developed patient, in no apparent distress. SKIN: No rashes, warm and dry HEAD: Atraumatic. Normocephalic. EYES: Pupils equal round and reactive. Extraocular motions intact. No scleral icterus. ENT: Nose without bleeding, or drainage, Airway patent. NECK: Trachea midline. Supple CARDIOVASCULAR: Regular rate and rhythm without murmurs, gallops, or rubs. RESPIRATORY: Fair air entry bilaterally. No wheezes, rales, or rhonchi. GASTROINTESTINAL: Abdomen soft, non-tender, nondistended. Positive bowel sounds MUSCULOSKELETAL: Multiple ulcers with weeping and foul-smelling in the right lower extremity and lateral ankle NEUROLOGICAL: Awake and alert. Moves all extremity. Normal speech.no focal neurological deficit A/P Problem List: (1) Cellulitis of leg, right ICD Code: L03.115 - Cellulitis of right lower limb (2) UTI (urinary tract infection) ICD Code: N39.0 - Urinary tract infection, site not specified (3) HTN (hypertension) ICD Code: I10 - Essential (primary) hypertension (4) Alcohol abuse ICD Code: F10.10 - Alcohol abuse, uncomplicated (5) Tobacco abuse ICD Code: Z72.0 - Tobacco use Assessment and Plan Right leg cellulitis with ulcers rule out abscess UTI Uncontrolled hypertension Diabetes mellitus Alcohol and tobacco abuse DVT prophylaxis Plan: Continue Zosyn and Vanco Clean dressing Consult podiatry and wound management Follow urine culture Check NAVNEET Start patient on lisinopril and Lopressor(UA positive for proteinuria) Patient counseled about tobacco and alcohol abuse [facility] protocol Heparin and SCD for DVT prophylaxis Dorcas Cavanaugh MD Mar 18, 2017 13:13
[2017-03-18] MEDS: LISINOPRIL 5 MG TAB PO SCH (13:50)
[2017-03-18] MEDS ORDERED: SODIUM CHLOR 0.9% 1000 ML INJ 1,000 ML IV ONE (14:30)
--- NOTE | 2017-03-18 14:38 | RADRPT ---
EXAM DATE/TIME: 03/18/2017 00:00 [facility] COMPARISON: No previous studies available for comparison. INDICATIONS : Left Leg Cellulitis TECHNIQUE: Four-cuff ankle and brachial pressures were obtained. Pulse cuff waveform tracings of the ankles were recorded, and ankle-brachial indices were calculated. PRESSURES (mmHg): Brachial (arm): Right 216 Left IV SITE Ankle: Right 100 Left 75 NAVNEET: Right 0.46 Left 0.35 TBI: Right 0.00 Left 0.00 PULSED CUFF WAVEFORMS: Unable to obtain waveforms were pulses within the toes. Monophasic waveforms at the ankles. CONCLUSION: Severe reduction of the ABIs bilaterally. Jamel Russell Jr., MD on March 18, 2017 at 14:35 Board Certified Radiologist. This report was verified electronically.
[2017-03-18 15:26] VITALS: BP 124/96; PULSE 98; RESP 18; TEMP 100; O2SAT 97
--- NOTE | 2017-03-18 15:43 | PD.WCN.NOT ---
Wound Consult Description: Received consult for wound management of RLE from Doctor Loco Communicated with: CORNELIUS Castro H pod CDU and Call placed to Doctor Cavanaugh for orders Recommendation: 1.Please cleanse wounds with normal saline or wound cleanser and pat dry. Apply Optifoam gentle AG over wounds and secure with rolled gauze and tape. Change dressing every 2 days or PRN if saturated or dislodged, until seen by Doctor John 2. Consult Vascular surgery for NAVNEET less than 0.5 for both legs. 3. Consult infectious disease for positive wound cultures for Group A strep Pyrogenes and probable proteus Additional Information: Patient seen on H pod CDU for evaluation of wound management of RLE. Removed rolled gauze, and non stick dressings in place to reveal 5 wounds to R leg. Wound to medial R calf is the largest and measures ~8cm x ~4cm x slough. Wound bed presents with ~50% pink tissue and ~50% yellow slough. Wound has has a moist wound bed, foul odor and moderate yellow/ ramesh drainage is noted on removed non stick dressing. Wound to R bautista measures ~2cm x ~2cm x ~0.1cm. Wound presents with 100% pink tissue. Wound bed is also moist, with moderate ramesh/ yellow drainage that has a foul odor assessed on removed non stick dressing. Wound to R lateral lower leg measures ~1.5cm x ~2cm x ~0.1cm. Wound bed also presents with 100% pink tissue. Wound bed is moist with moderate ramesh/yellow drainage that has foul odor that was assessed on removed non stick dressing. Posterior R lower leg wound presents with ~40% pink tissue and ~60% yellow tissue.Wound measures ~2cm x ~5cm x slough. Wound bed is also moist, with moderate ramesh/ yellow drainage that has foul odor that was assessed on removed non stick dressing. Small dry wound is noted lower anterior R bautista. Wound measures ~1cm x ~0.5cm x ~ 0.1cm. Wound is 100% pink without active drainage or odor. Entire R lower leg presents with dry peeling skin with dusky coloring. Called microbiology lab for wound culture results. Per Micro wound culture is positive for Probable proteus, and Group A strep Pyrogenes. ABIs concluded severe reduction of ABIs bilaterally.Wound care recommendations are noted above. Radha Dominguez WCCRN Mar 18, 2017 15:43
--- NOTE | 2017-03-18 18:16 | EKG ---
Date Performed: 03/17/2017 Time Performed: 18:20:11 PTAGE: 56 years EKG: SINUS TACHYCARDIA POSSIBLE LEFT ATRIAL ENLARGEMENT ABNORMAL RHYTHM ECG NO PREVIOUS TRACING DOCTOR: Phan Schroeder Interpretating Date/Time 03/18/2017 18:16:18
[2017-03-19] VITALS (19 sets, daily range): BP systolic 80–240; BP diastolic 63–118; PULSE 88–127; RESP 18–20; TEMP 98.8–102.7; O2SAT 94–100
[2017-03-19] MEDS: ENALAPRILAT 1.25 MG/ML VIAL IV PUSH PRN (00:59)
[2017-03-19] MEDS: SODIUM CHLOR 0.9% 1000 ML INJ 1,000 ML IV SCH ×3 (00:59→21:21)
[2017-03-19] MEDS: PIPERACIL-TAZO 4.5 GM PREMIX 100 ML IV SCH ×3 (00:59→17:09)
[2017-03-19] MEDS: ACETAMINOPHEN 325 MG TAB PO PRN ×2 (01:00→17:09)
[2017-03-19 05:45] LABS: AUTOMATED NEUTROPHIL # 4.1 TH/MM3 (1.8-7.7); BASOPHIL % 0.3 % (0.0-2.0); EOSINOPHIL # 0.1 TH/MM3 (0-0.4); EOSINOPHIL % 2.2 % (0.0-4.0); HEMATOCRIT 29.8 % (35.0-46.0); HEMO FLAGS DIFF FINAL; LYMPH % 20.5 % (9.0-44.0); LYMPHOCYTE # 1.3 TH/MM3 (1.0-4.8); MEAN CELL VOLUME 88.3 FL (80.0-100.0); MEAN CORPUSCULAR HEMOGLOBIN 29.6 PG (27.0-34.0); MEAN CORPUSCULAR HGB CONC 33.6 % (32.0-36.0); MONO % 11.4 % (0.0-8.0); NEUT % 65.6 % (16.0-70.0); PLATELET COUNT 213 TH/MM3 (150-450); RED BLOOD COUNT 3.37 MIL/MM3 (4.00-5.30); RED CELL DISTRIBUTION WIDTH 21.9 % (11.6-17.2); WHITE BLOOD COUNT 6.3 TH/MM3 (4.0-11.0)
[2017-03-19] MEDS ORDERED: PHARMACY ORDERED LAB ONE (05:45)
[2017-03-19 06:06] LABS: BICARBONATE 25.7 MEQ/L (21.0-32.0); POTASSIUM 3.2 MEQ/L (3.5-5.1)
[2017-03-19] MEDS: VANCOMYCIN 1,000 MG/NS 250 ML IV SCH ×4 (07:49→17:57)
[2017-03-19] MEDS: HEPARIN SODIUM - SQ 10,000 UNITS/ML VIAL SQ SCH ×2 (08:59→21:01)
[2017-03-19] MEDS: LISINOPRIL 5 MG TAB PO SCH (08:59)
[2017-03-19] MEDS: FOLIC ACID 1 MG TAB PO SCH (09:00)
[2017-03-19] MEDS: DOCUSATE SODIUM 50 MG/SENNA 8.6 MG TAB PO SCH ×2 (09:00→21:00)
[2017-03-19] MEDS: PANTOPRAZOLE SOD 40 MG DELAYED RELEASE TAB PO SCH (09:00)
[2017-03-19] MEDS: CARVEDILOL 3.125 MG TAB PO SCH (09:00)
[2017-03-19] MEDS: MULTIVITAMINS/MINERALS THERAPEUTIC TAB PO SCH (09:00)
[2017-03-19] MEDS: THIAMINE HCL 100 MG TAB PO SCH (09:01)
[2017-03-19] MEDS: SODIUM CHLORIDE 0.9% FLUSH 10 ML FLUSH IV FLUSH SCH ×2 (09:04→21:00)
--- NOTE | 2017-03-19 11:43 | PD.CAR.PN ---
CVT Progress Note Subjective/Hospital Course: Patient seen full consult dictated Thanks J Objective: Vital Signs Date Time Temp Pulse Resp B/P (MAP) Pulse Ox O2 Delivery O2 Flow Rate FiO2 03/19/17 11:19 99.5 96 20 240/105 (150) 97 03/19/17 09:24 98.8 103 20 201/93 (129) 96 03/19/17 04:43 99.4 97 153/73 (99) 97 03/19/17 02:36 139/69 (92) 03/19/17 01:30 181/87 (118) 03/19/17 00:44 100.8 100 19 195/96 (129) 94 03/18/17 15:26 100.0 98 18 124/96 (105) 97 03/18/17 11:59 98.9 81 18 188/88 (121) 96 Labs: Laboratory Tests Test 03/19/17 04:56 03/19/17 05:50 White Blood Count 6.3 TH/MM3 (4.0-11.0) Red Blood Count 3.37 MIL/MM3 (4.00-5.30) Hemoglobin 10.0 GM/DL (11.6-15.3) Hematocrit 29.8 % (35.0-46.0) Mean Corpuscular Volume 88.3 FL (80.0-100.0) Mean Corpuscular Hemoglobin 29.6 PG (27.0-34.0) Mean Corpuscular Hemoglobin Concent 33.6 % (32.0-36.0) Red Cell Distribution Width 21.9 % (11.6-17.2) Platelet Count 213 TH/MM3 (150-450) Mean Platelet Volume 6.8 FL (7.0-11.0) Neutrophils (%) (Auto) 65.6 % (16.0-70.0) Lymphocytes (%) (Auto) 20.5 % (9.0-44.0) Monocytes (%) (Auto) 11.4 % (0.0-8.0) Eosinophils (%) (Auto) 2.2 % (0.0-4.0) Basophils (%) (Auto) 0.3 % (0.0-2.0) Neutrophils # (Auto) 4.1 TH/MM3 (1.8-7.7) Lymphocytes # (Auto) 1.3 TH/MM3 (1.0-4.8) Monocytes # (Auto) 0.7 TH/MM3 (0-0.9) Eosinophils # (Auto) 0.1 TH/MM3 (0-0.4) Basophils # (Auto) 0.0 TH/MM3 (0-0.2) CBC Comment DIFF FINAL Differential Comment Blood Urea Nitrogen 12 MG/DL (7-18) Creatinine 0.71 MG/DL (0.50-1.00) Random Glucose 93 MG/DL (74-106) Calcium Level 8.7 MG/DL (8.5-10.1) Sodium Level 130 MEQ/L (136-145) Potassium Level 3.2 MEQ/L (3.5-5.1) Chloride Level 97 MEQ/L (98-107) Carbon Dioxide Level 25.7 MEQ/L (21.0-32.0) Anion Gap 7 MEQ/L (5-15) Estimat Glomerular Filtration Rate 103 ML/MIN (>89) Lactic Acid Level 1.0 mmol/L (0.4-2.0) Vancomycin Level Trough 11.8 MCG/ML (5.0-10.0) Result Diagram: 03/19/17 0456 03/19/17 0456 Dallas Monaco MD Mar 19, 2017 11:43
[2017-03-19] MEDS ORDERED: hydrALAZINE HCL 20 MG/ML VIAL IV PUSH ONE (11:45)
[2017-03-19] MEDS: cloNIDine HCL 0.1 MG TAB PO PRN ×2 (11:59→12:11)
--- NOTE | 2017-03-19 12:44 | HHI.PR ---
Subjective Remarks I came to see the patient her blood pressure was 240/118 Despite that patient denied headache blurry vision chest anal short of breath, nausea vomiting I ordered 20 mg of hydralazine iv to be given stat Objective Vitals Vital Signs Date Time Temp Pulse Resp B/P (MAP) Pulse Ox O2 Delivery O2 Flow Rate FiO2 03/19/17 11:57 238/118 (158) Automatic Cuff 03/19/17 11:19 99.5 96 20 240/105 (150) 97 03/19/17 09:24 98.8 103 20 201/93 (129) 96 03/19/17 04:43 99.4 97 153/73 (99) 97 03/19/17 02:36 139/69 (92) 03/19/17 01:30 181/87 (118) 03/19/17 00:44 100.8 100 19 195/96 (129) 94 03/18/17 15:26 100.0 98 18 124/96 (105) 97 I/O 03/18/17 03/18/17 03/18/17 03/19/17 03/19/17 03/19/17 07:00 15:00 23:00 07:00 15:00 23:00 Intake Total 1750 ml 00608 ml Output Total 1400 ml Balance 1750 ml 33071 ml Intake Oral 750 ml 750 ml IV Total 1000 ml 05122 ml Output Urine Total 1200 ml Stool Total 200 ml # Voids 2 1 1 # Bowel Movements 1 1 Result Diagram: 03/19/17 0456 03/19/17 0456 Objective Remarks GENERAL: This is a well-nourished, well-developed patient, in no apparent distress. SKIN: No rashes, warm and dry HEAD: Atraumatic. Normocephalic. EYES: Pupils equal round and reactive. Extraocular motions intact. No scleral icterus. ENT: Nose without bleeding, or drainage, Airway patent. NECK: Trachea midline. Supple CARDIOVASCULAR: Regular tachycardia without murmurs, gallops, or rubs. RESPIRATORY: Fair air entry bilaterally. No wheezes, rales, or rhonchi. GASTROINTESTINAL: Abdomen soft, non-tender, nondistended. Positive bowel sounds MUSCULOSKELETAL: Multiple ulcers with weeping and foul-smelling in the right lower extremity and lateral ankle NEUROLOGICAL: Awake and alert. Moves all extremity. Normal speech.no focal neurological deficit A/P Problem List: (1) Cellulitis of leg, right ICD Code: L03.115 - Cellulitis of right lower limb (2) UTI (urinary tract infection) ICD Code: N39.0 - Urinary tract infection, site not specified (3) HTN (hypertension) ICD Code: I10 - Essential (primary) hypertension (4) Alcohol abuse ICD Code: F10.10 - Alcohol abuse, uncomplicated (5) Tobacco abuse ICD Code: Z72.0 - Tobacco use Assessment and Plan Hypertensive urgency Right leg infected ischemic ulcers, with strep, Proteus PVD with positive NAVNEET UTI Diabetes mellitus Alcohol and tobacco abuse DVT prophylaxis Plan: 20 mg iv hydralazine stat trolled blood pressure and increase lisinopril and Coreg po Continue Zosyn and Vanco Clean dressing Consult podiatry and CVS Consult ID Reviewed NAVNEET positive for PVD/ischemia Patient counseled about tobacco and alcohol abuse [facility] protocol Heparin and SCD for DVT prophylaxis Dorcas Cavanaugh MD Mar 19, 2017 12:44
[2017-03-19] MEDS ORDERED: CARVEDILOL 3.125 MG TAB PO STA (12:45)
[2017-03-19] MEDS ORDERED: LISINOPRIL 20 MG TAB PO STA (12:45)
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
[2017-03-19] MEDS ORDERED: POTASSIUM CHLORIDE 20 MEQ CONTROLLED RELEASE TAB PO ONE (14:45)
[2017-03-19] MEDS: LACTOBACILLUS ACIDOPHILUS TAB PO SCH ×2 (15:07→17:09)
--- NOTE | 2017-03-19 15:17 | PD.CONS ---
History of Present Illness Service Infectious disease Consult Requested By Dr Anjana Cavanaugh Reason for Consult Evaluate patient with infected ischemic ulcers Primary Care Physician Unknown Diagnoses: History of Present Illness Patient seen and examined. Records reviewed. Patient is a 56-year-old female, presented to the hospital complaining of painful wounds on her right leg. Patient states she's had the wounds for about several months. She thinks she got it from insect bites. She had initially been going to the wound care center here at [facility] but she is not compliant as far as follow-up. She is getting more drainage from her leg wounds and was getting some redness. She presented to the hospital for further evaluation and treatment. Patient has had low-grade temps since admission. Today however is her temperatures up to 102. Her WBC is normal. Patient is being evaluated by vascular surgery. Wound cultures preliminary are growing Proteus, staph aureus and strep. Infectious disease consultation has been requested to evaluate the patient. Review of Systems Constitutional: COMPLAINS OF: Fever, Chills Eyes: DENIES: Eye pain Ears, nose, mouth, throat: DENIES: Nasal discharge, Oral lesions, Throat pain, Ear Pain, Sinus Pain Respiratory: DENIES: Cough, Shortness of breath Cardiovascular: DENIES: Chest pain, Palpitations, Syncope Gastrointestinal: DENIES: Abdominal pain, Constipation, Diarrhea, Nausea, Vomiting, Difficulty Swallowing Genitourinary: DENIES: Urgency, Dysuria, Nocturia Musculoskeletal: COMPLAINS OF: Joint pain Integumentary: COMPLAINS OF: Rash Neurologic: DENIES: Localized weakness Psychiatric: DENIES: Hallucinations Past Family Social History Allergies: Coded Allergies: lactose (Verified Adverse Reaction, Severe, Diarrhea, 03/17/17) orange juice (Verified Adverse Reaction, Severe, Cramping, 03/17/17) Past Medical History HTN Alcohol Abuse and Tobacco Abuse Past Surgical History None Reported Medications Reported Meds & Active Scripts Active Bactrim DS (Sulfamethoxazole-Trimethoprim) 800-160 Mg Tab 1 Tab PO BID Tylenol (Acetaminophen) 325 Mg Tab 650 Mg PO Q6H PRN Reported Flexeril (Cyclobenzaprine HCl) 10 Mg Tab 10 Mg PO TID Carvedilol 3.125 Mg Tab 3.125 Mg PO BID Ferrous Sulfate 325 Mg (65 Mg Iron) Tablet 325 Mg PO BIDPC Protonix (Pantoprazole Sodium) 40 Mg Tab 40 Mg PO DAILY Ventolin Hfa 18 GM Inh (Albuterol Sulfate) Unknown Strength Aer Unknown Dose INH Q4H PRN Plavix (Clopidogrel Bisulfate) Unknown Strength Tab Unknown Dose PO DAILY Active Ordered Medications Current Medications Medications (Trade) Dose Ordered Sig/Ruma Route Start Time Stop Time Status Last Admin Pharmacy Profile Note 0 ml @ 0 mls/hr UNSCH OTHER 03/17/17 19:30 (Folate) 1 mg DAILY PO 03/18/17 09:00 03/23/17 08:59 03/19/17 09:00 (Vitamin B1) 100 mg DAILY PO 03/18/17 09:00 03/19/17 09:01 (Theragran M Tab) 1 tab DAILY PO 03/18/17 09:00 03/23/17 08:59 03/19/17 09:00 (Romazicon Inj) 0.2 mg Q1M PRN IV PUSH 03/17/17 19:30 (Ativan) 1 mg Q4H PRN PO 03/17/17 19:30 (Ativan Inj) 1 mg Q4H PRN IV PUSH 03/17/17 19:30 (Ativan) 2 mg Q2H PRN PO 03/17/17 19:30 (Ativan Inj) 2 mg Q2H PRN IV PUSH 03/17/17 19:30 (Ativan Inj) 2 mg Q1H PRN IV PUSH 03/17/17 19:30 (Ativan Inj) 2 mg Q15M PRN IV PUSH 03/17/17 19:30 (Haldol Inj) 2 mg Q15M PRN IM 03/17/17 19:30 Piperacillin Sod/ Tazobactam Sod 100 ml @ 200 mls/hr Q6H IV 03/18/17 00:00 03/19/17 06:49 Sodium Chloride 1,000 ml @ 100 mls/hr Q10H IV 03/17/17 19:21 03/19/17 00:59 (NS Flush) 2 ml UNSCH PRN IV FLUSH 03/17/17 19:30 (NS Flush) 2 ml BID IV FLUSH 03/17/17 21:00 03/19/17 09:04 (Zofran Inj) 4 mg Q6H PRN IVP 03/17/17 19:30 (Heparin Inj) 5,000 units Q12H SQ 03/18/17 09:00 03/19/17 08:59 (Tylenol) 650 mg Q6H PRN PO 03/17/17 19:30 03/19/17 01:00 (Roxicodone) 10 mg Q4H PRN PO 03/17/17 19:30 03/19/17 12:49 (Roxicodone) 5 mg Q4H PRN PO 03/17/17 19:30 (Heena-Colace) 1 tab BID PO 03/17/17 21:00 03/18/17 22:45 (Milk Of Magnesia Liq) 30 ml Q12H PRN PO 03/17/17 19:30 (Senokot) 17.2 mg Q12H PRN PO 03/17/17 19:30 (Dulcolax Supp) 10 mg DAILY PRN RECTAL 03/17/17 19:30 (Lactulose Liq) 30 ml DAILY PRN PO 03/17/17 19:30 Vancomycin HCl 1000 mg/Sodium Chloride 250 ml @ 250 mls/hr Q12H IV 03/18/17 06:00 03/19/17 07:49 (Catapres) 0.1 mg Q6H PRN PO 03/18/17 01:00 03/19/17 12:11 (Protonix) 40 mg DAILY PO 03/19/17 09:00 03/19/17 09:00 (Vasotec Inj) 1.25 mg Q6H PRN IV PUSH 03/18/17 12:30 03/19/17 00:59 (Prinivil) 40 mg DAILY PO 03/20/17 09:00 (Coreg) 6.25 mg Q12HR PO 03/19/17 21:00 (Lactinex) 1 tab TID PO 03/19/17 13:00 03/19/17 15:07 Miscellaneous Information SPECIFIC LAB TO BE JC... ONCE ONCE .XX 03/21/17 05:45 03/21/17 05:46 Family History Unremarkable Social History Drinks daily, 3-4 beers/day. Smokes 1/2ppd. Negative for drugs. Physical Exam Vital Signs Vital Signs Date Time Temp Pulse Resp B/P (MAP) Pulse Ox O2 Delivery O2 Flow Rate FiO2 03/19/17 13:59 178/84 (115) Automatic Cuff 03/19/17 13:30 227/98 (141) Manual Cuff/Auscultation 03/19/17 11:57 238/118 (158) Automatic Cuff 03/19/17 11:19 99.5 96 20 240/105 (150) 97 03/19/17 09:24 98.8 103 20 201/93 (129) 96 03/19/17 04:43 99.4 97 153/73 (99) 97 03/19/17 02:36 139/69 (92) 03/19/17 01:30 181/87 (118) 03/19/17 00:44 100.8 100 19 195/96 (129) 94 03/18/17 15:26 100.0 98 18 124/96 (105) 97 Physical Exam GENERAL: Patient is a thin, well-developed female, awake and alert, not in respiratory distress. She is [place] SKIN: Warm and dry. No generalized rash, no ecchymoses and no evidence of embolic lesions. HEAD: Atraumatic. Normocephalic. No temporal wasting, or tenderness. EYES: [place]den conjunctiva. No petechia or hemorrhage. Pupils equal, round and reactive to light. Extraocular movements full and intact. No scleral icterus. No injection or drainage. EARS, NOSE AND THROAT: Nose without bleeding or purulent nasal discharge. No sinus tenderness. Mucous membranes pink and moist. No oral lesions noted. No exudate. No oral thrush. NECK: Trachea midline. Supple and not tender, no meningeal signs. Has some small cervical LN CARDIOVASCULAR: Regular rate and rhythm. No murmurs, rubs or gallops heard RESPIRATORY: Clear to auscultation. Breath sounds equal bilaterally. No rales , wheezing or rhonchi ABDOMEN: Soft, non-tender, nondistended. Bowel sounds present and normoactive. No guarding. No rebound. No organomegaly. EXTREMITIES: LLE warm, no edema, cyanosis, no calf tenderness. RLE - has multiple wounds, wiuth purulent drainage, with foul odor and has surrounding redness, the largest wound is in medial/posterior R leg. Well perfused and warm. NEUROLOGICAL: Awake and alert. Cranial nerves grossly intact. Motor grossly within normal limits. PSYCHIATRIC: Normal affect, calm and cooperative. LINE: No evidence of infection Laboratory Laboratory Tests Test 03/19/17 04:56 03/19/17 05:50 White Blood Count 6.3 Red Blood Count 3.37 Hemoglobin 10.0 Hematocrit 29.8 Mean Corpuscular Volume 88.3 Mean Corpuscular Hemoglobin 29.6 Mean Corpuscular Hemoglobin Concent 33.6 Red Cell Distribution Width 21.9 Platelet Count 213 Mean Platelet Volume 6.8 Neutrophils (%) (Auto) 65.6 Lymphocytes (%) (Auto) 20.5 Monocytes (%) (Auto) 11.4 Eosinophils (%) (Auto) 2.2 Basophils (%) (Auto) 0.3 Neutrophils # (Auto) 4.1 Lymphocytes # (Auto) 1.3 Monocytes # (Auto) 0.7 Eosinophils # (Auto) 0.1 Basophils # (Auto) 0.0 CBC Comment DIFF FINAL Differential Comment Blood Urea Nitrogen 12 Creatinine 0.71 Random Glucose 93 Calcium Level 8.7 Sodium Level 130 Potassium Level 3.2 Chloride Level 97 Carbon Dioxide Level 25.7 Anion Gap 7 Estimat Glomerular Filtration Rate 103 Lactic Acid Level 1.0 Vancomycin Level Trough 11.8 Date/Time Source Procedure Growth Status 03/17/17 16:20 Blood Peripheral Aerobic Blood Culture - Preliminary NO GROWTH IN 2 DAYS Resulted 03/17/17 16:20 Blood Peripheral Anaerobic Blood Culture - Preliminary NO GROWTH IN 2 DAYS Resulted 03/17/17 17:00 Wound Leg Gram Stain - Final Resulted 03/17/17 17:00 Wound Culture - Preliminary Group A Beta Strep Proteus Mirabilis Staphylococcus Aureus Resulted Result Diagram: 03/19/17 0456 03/19/17 0456 Imaging RADIOLOGY STUDIES/FILMS REVIEWED Lower Extremity Ultrasound 03/18/17 0000 Signed Impressions: Service Date/Time: Saturday, March 18, 2017 12:49 - CONCLUSION: Negative exam with no evidence of abscess. Gonsalo Burris MD Tibia/Fibula X-Ray 03/17/17 0000 Signed Impressions: Service Date/Time: March 17:36 - CONCLUSION: 1. No acute bony abnormality identified. Jj Rolle MD Assessment and Plan Assessment and Plan IMPRESSION Sepsis due to infected R leg wounds Infected wounds R leg, prob ischemic ulcers - patient has DM and chronic smoker Likely with PVD Known tobacco and ETOH abuse RECOMMENDATION Continue Vanco for GPC coverage Continue Zosyn for GNR and anaerobic coverage Wound care 2 BC today Follow C/S PVD work-up in progress Monitor progress Further recommendation to follow once work-up completed I will follow along with you Thank you for this consultation Discussed Condition With Discussed with Adrienne Montes De Oca MD Mar 19, 2017 15:16
[2017-03-19] MEDS: LOW DOSE INSULIN NOVOLOG SUPPLEMENTAL SCALE SQ SCH ×2 (17:21→21:00)
[2017-03-19] MEDS ORDERED: GLUCAGON 1 MG/ML VIAL OTHER PRN (17:30)
[2017-03-19] MEDS ORDERED: DEXTROSE 50% IN WATER 50 ML VIAL(D50) IV PUSH PRN (17:30)
[2017-03-19] MEDS ORDERED: MAGNESIUM SULFATE 1 GM PREMIX 100 ML IV ONE (17:45)
--- NOTE | 2017-03-19 18:44 | PD.WOU.CON ---
Patient Intake Chief Complaint Multiple ischemic ulcerations of the right lower extremity Consult Requested by Dr. Cavanaugh Reason for Consult Evaluation and possible treatment of right lower extremity ulcerations Primary Care Physician Unknown History of Present Illness Patient is a 51-year-old homeless female who has had wounds on her right lower extremity for several months. Patient is had ER visits for this. She was referred to the wound center but never showed up for any visits. She recently developed a temperature of 102 and was admitted for possible septicemia. Patient is currently growing Proteus staph aureus and strep from her wounds. She has been seen by vascular surgery and infectious disease. Patient smokes at least 1-1/2 packs per cigarettes per day. Her ABIs are 0.46 on the right and 0.35 on the left. TBI 0.0 bilaterally. Patient is pending CTA with runoff. Coded Allergies: lactose (Verified Adverse Reaction, Severe, Diarrhea, 03/17/17) orange juice (Verified Adverse Reaction, Severe, Cramping, 03/17/17) Preferred Language to Discuss: Latvian Barriers to Learning: None Teaching Method: Discussion Vital Signs Date Time Temp Pulse Resp B/P (MAP) Pulse Ox O2 Delivery O2 Flow Rate FiO2 03/19/17 16:00 102.7 116 20 181/88 (119) 100 96/74 (81) 03/19/17 15:00 102.0 120 20 190/63 (105) 96 91/69 (76) 03/19/17 14:00 102.0 122 20 80/66 (71) 96 188/77 (114) 03/19/17 13:59 178/84 (115) Automatic Cuff 03/19/17 13:50 16 03/19/17 13:30 227/98 (141) Manual Cuff/Auscultation 03/19/17 11:57 238/118 (158) Automatic Cuff 03/19/17 11:19 99.5 96 20 240/105 (150) 97 03/19/17 09:24 98.8 103 20 201/93 (129) 96 03/19/17 04:43 99.4 97 153/73 (99) 97 03/19/17 02:36 139/69 (92) 03/19/17 01:30 181/87 (118) 03/19/17 00:44 100.8 100 19 195/96 (129) 94 Pain scale used: 0-10 numeric scale Pain score: 5 Medications Current Medications Vancomycin HCl 1000 mg/Sodium Chloride 250 ml @ 250 mls/hr ONCE ONCE IV Last administered on 03/17/17 16:15; Start 03/17/17 at 16:15; Stop 03/17/17 at 17 :14; Status DC Morphine Sulfate (Morphine Inj) 4 mg ONCE ONCE IV PUSH Last administered on 17:21; Start 03/17/17 at 16:15; Stop 03/17/17 at 16:16; Status DC Ondansetron HCl (Zofran Inj) 4 mg ONCE ONCE IV PUSH Last administered on 03/17 16:15; Start 03/17/17 at 16:15; Stop 03/17/17 at 16:16; Status DC Piperacillin Sod/ Tazobactam Sod 100 ml @ 200 mls/hr ONCE ONCE IV Last administered on 03/17/17 19:09; Start 03/17/17 at 17:30; Stop 03/17/17 at 17 :59; Status DC Sodium Chloride 1,000 ml @ 1,000 mls/hr Q1H ONCE IV Last administered on 03/17 17:20; Start 03/17/17 at 17:20; Stop 03/17/17 at 18:19; Status DC Sodium Chloride 1,000 ml @ 1,000 mls/hr Q1H ONCE IV Last administered on 03/17 17:20; Start 03/17/17 at 17:20; Stop 03/17/17 at 18:19; Status DC Sodium Chloride 100 ml @ 1,000 mls/hr Q6M ONCE IV Last administered on 19:56; Start 03/17/17 at 17:20; Stop 03/17/17 at 17:25; Status DC Pharmacy Profile Note 0 ml @ 0 mls/hr UNSCH OTHER ; Start 03/17/17 at 19:30 Folic Acid (Folate) 1 mg DAILY PO Last administered on 03/19/17 09:00; Start 03/18/17 at 09:00; Stop 03/23/17 at 08:59 Thiamine HCl (Vitamin B1) 100 mg DAILY PO Last administered on 03/19/17 09:01 ; Start 03/18/17 at 09:00 Multivitamins/ Minerals Therapeutic (Theragran M Tab) 1 tab DAILY PO Last administered on 03/19/17 09:00; Start 03/18/17 at 09:00; Stop 03/23/17 at 08 :59 Flumazenil (Romazicon Inj) 0.2 mg Q1M PRN IV PUSH SEE LABEL COMMENTS; Start at 19:30 Lorazepam (Ativan) 1 mg Q4H PRN PO CIWA 8 - 10; Start 03/17/17 at 19:30 Lorazepam (Ativan Inj) 1 mg Q4H PRN IV PUSH CIWA 8 - 10; Start 03/17/17 at 19: 30 Lorazepam (Ativan) 2 mg Q2H PRN PO CIWA 11-14; Start 03/17/17 at 19:30 Lorazepam (Ativan Inj) 2 mg Q2H PRN IV PUSH CIWA 11-14; Start 03/17/17 at 19: 30 Lorazepam (Ativan Inj) 2 mg Q1H PRN IV PUSH CIWA 15-20; Start 03/17/17 at 19: 30 Lorazepam (Ativan Inj) 2 mg Q15M PRN IV PUSH CIWA > 20; Start 03/17/17 at 19: 30 Haloperidol Lactate (Haldol Inj) 2 mg Q15M PRN IM SEE LABEL COMMENTS; Start at 19:30 Piperacillin Sod/ Tazobactam Sod 100 ml @ 200 mls/hr Q6H IV Last administered on 03/19/17 17:09; Start 03/18/17 at 00:00 Sodium Chloride 1,000 ml @ 100 mls/hr Q10H IV Last administered on 03/19/17 00:59; Start 03/17/17 at 19:21 Sodium Chloride (NS Flush) 2 ml UNSCH PRN IV FLUSH FLUSH AFTER USING IV ACCESS ; Start 03/17/17 at 19:30 Sodium Chloride (NS Flush) 2 ml BID IV FLUSH Last administered on 03/19/17 09 :04; Start 03/17/17 at 21:00 Ondansetron HCl (Zofran Inj) 4 mg Q6H PRN IVP NAUSEA OR VOMITING; Start at 19:30 Heparin Sodium (Porcine) (Heparin Inj) 5,000 units Q12H SQ Last administered on 03/19/17 08:59; Start 03/18/17 at 09:00 Acetaminophen (Tylenol) 650 mg Q6H PRN PO FEVER/PAIN SCALE 1 TO 2 Last administered on 03/19/17 17:09; Start 03/17/17 at 19:30 Oxycodone HCl (Roxicodone) 10 mg Q4H PRN PO PAIN SCALE 6 TO 10 Last administered on 03/19/17 12:49; Start 03/17/17 at 19:30 Oxycodone HCl (Roxicodone) 5 mg Q4H PRN PO PAIN SCALE 3 TO 5 Last administered on 03/19/17 17:54; Start 03/17/17 at 19:30 Senna/Docusate Sodium (Heena-Colace) 1 tab BID PO Last administered on 22:45; Start 03/17/17 at 21:00 Magnesium Hydroxide (Milk Of Magnesia Liq) 30 ml Q12H PRN PO Mild constipation ; Start 03/17/17 at 19:30 Sennosides (Senokot) 17.2 mg Q12H PRN PO Moderate constipation; Start at 19:30 Bisacodyl (Dulcolax Supp) 10 mg DAILY PRN RECTAL SEVERE CONSITIPATION; Start 03/17/17 at 19:30 Lactulose (Lactulose Liq) 30 ml DAILY PRN PO SEVERE CONSITIPATION; Start 03/17 at 19:30 Metoprolol Tartrate (Lopressor Inj) 5 mg ONCE ONCE IV PUSH Last administered on 03/17/17 20:26; Start 03/17/17 at 20:15; Stop 03/17/17 at 20:19; Status DC Vancomycin HCl 1000 mg/Sodium Chloride 250 ml @ 250 mls/hr Q12H IV Last administered on 03/19/17 17:57; Start 03/18/17 at 06:00 Miscellaneous Information SPECIFIC LAB TO BE JC... ONCE ONCE .XX ; Start at 05:45; Stop 03/19/17 at 05:49; Status DC Clonidine (Catapres) 0.1 mg ONCE ONCE PO Last administered on 03/18/17 01:02 ; Start 03/18/17 at 00:45; Stop 03/18/17 at 00:49; Status DC Clonidine (Catapres) 0.1 mg Q6H PRN PO SEE LABEL COMMENTS Last administered on 03/19/17 12:11; Start 03/18/17 at 01:00 Pneumococcal Polyvalent Vaccine (Pneumovax-23 Inj) 25 mcg ONCE ONCE IM Last administered on 03/18/17 11:32; Start 03/18/17 at 09:00; Stop 03/18/17 at 09 :01; Status DC Influenza Virus Vaccine (Flu (Quadrivalent) Vaccine Inj) 0.5 ml ONCE ONCE IM Last administered on 03/18/17 11:30; Start 03/18/17 at 09:00; Stop 03/18/17 at 09:01; Status DC Potassium Chloride (KCl) 40 meq ONCE ONCE PO Last administered on 03/18/17 11:26; Start 03/18/17 at 11:00; Stop 03/18/17 at 11:16; Status DC Carvedilol (Coreg) 3.125 mg BID PO Last administered on 03/19/17 09:00; Start 03/18/17 at 11:30; Stop 03/19/17 at 11:46; Status DC Pantoprazole Sodium (Protonix) 40 mg DAILY PO Last administered on 03/19/17 09:00; Start 03/19/17 at 09:00 Lisinopril (Prinivil) 5 mg DAILY PO Last administered on 03/19/17 08:59; Start 03/18/17 at 12:30; Stop 03/19/17 at 11:46; Status DC Enalaprilat (Vasotec Inj) 1.25 mg Q6H PRN IV PUSH bp>160/90 Last administered on 03/19/17 00:59; Start 03/18/17 at 12:30 Sodium Chloride 1,000 ml @ 999 mls/hr BOLUS ONCE IV Last administered on 15:42; Start 03/18/17 at 14:30; Stop 03/18/17 at 15:30; Status DC Lisinopril (Prinivil) 40 mg DAILY PO ; Start 03/20/17 at 09:00 Carvedilol (Coreg) 6.25 mg Q12HR PO ; Start 03/19/17 at 21:00 Hydralazine HCl (Apresoline Inj) 20 mg ONCE ONCE IV PUSH Last administered on 03/19/17 12:35; Start 03/19/17 at 11:45; Stop 03/19/17 at 11:59; Status DC Lisinopril (Prinivil) 40 mg DAILY PO ; Start 03/20/17 at 09:00; Status UNV Lactobacillus Acidophilus (Lactinex) 1 tab TID PO Last administered on 17:09; Start 03/19/17 at 13:00 Lisinopril (Prinivil) 40 mg ONCE STAT PO ; Start 03/19/17 at 12:45; Stop at 12:53; Status DC Carvedilol (Coreg) 3.125 mg ONCE STAT PO ; Start 03/19/17 at 12:45; Stop at 12:53; Status DC Miscellaneous Information SPECIFIC LAB TO BE JC... ONCE ONCE .XX ; Start at 05:45; Stop 03/21/17 at 05:46 Potassium Chloride (KCl) 40 meq ONCE ONCE PO Last administered on 03/19/17 15:08; Start 03/19/17 at 14:45; Stop 03/19/17 at 14:46; Status DC Dextrose (D50w (Vial) Inj) 50 ml UNSCH PRN IV PUSH HYPOGLYCEMIA - SEE COMMENTS ; Start 03/19/17 at 17:30 Glucagon (Glucagon Inj) 1 mg UNSCH PRN OTHER HYPOGLYCEMIA-SEE COMMENTS; Start 03/19/17 at 17:30 Insulin Aspart (NovoLOG SUPPLEMENTAL SCALE) 1 ACHS SLIDING SCALE SQ ; Start at 17:21 Magnesium Sulfate/ Dextrose 100 ml @ 100 mls/hr ONCE ONCE IV Last administered on 03/19/17 17:56; Start 03/19/17 at 17:45; Stop 03/19/17 at 18 :44 Past, Family & Social History Past Medical History PFSH Reviewed: Yes Cardiovascular: REPORTS HX OF: Hypertension, Peripheral vascular dz Alcohol Use Alcohol Intake: 2+ drinks per day Review of Systems Constitutional: COMPLAINS OF: Pain Cardiovascular: COMPLAINS OF: Hx hypertension Wound Assessment Vascular Assessment R Dorsails Pedis: Absent L Dorsails Pedis: Absent R Posterior Tibial: Absent L Posterior Tibial: Absent Temperature of Left Extremity: Cool Color of Left Extremity: WNL Temperature of Right Extremity: Cool Color of Right Extremity: WNL Wound Information - Wound One Right anterior, posterior, medial and lateral leg wounds Wound Location: multiple ischemic wounds of the right lower extremity. Wound Type: Ischemic Classification: FT- full thickness Exudate: Moderate Exudate Type: Yellow Fibrin Amount: Moderate Granulation Tissue Color: [place] Granulation Tissue Texture: Spongy Exposed: No exposed bone, muscle, tendon Eschar: No Odor: Yes (Optifoam Gentle AG) Dressing Notes: Optifoam Gentle AG Lab and Radiology Results Laboratory Laboratory Tests Test 03/18/17 06:10 03/19/17 04:56 White Blood Count 5.6 TH/MM3 6.3 TH/MM3 Red Blood Count 3.16 MIL/MM3 3.37 MIL/MM3 Hemoglobin 9.8 GM/DL 10.0 GM/DL Hematocrit 28.9 % 29.8 % Mean Corpuscular Volume 91.2 FL 88.3 FL Mean Corpuscular Hemoglobin 30.9 PG 29.6 PG Mean Corpuscular Hemoglobin Concent 33.9 % 33.6 % Red Cell Distribution Width 23.3 % 21.9 % Platelet Count 214 TH/MM3 213 TH/MM3 Mean Platelet Volume 6.7 FL 6.8 FL Neutrophils (%) (Auto) 61.7 % 65.6 % Lymphocytes (%) (Auto) 22.3 % 20.5 % Monocytes (%) (Auto) 12.4 % 11.4 % Eosinophils (%) (Auto) 3.2 % 2.2 % Basophils (%) (Auto) 0.4 % 0.3 % Neutrophils # (Auto) 3.4 TH/MM3 4.1 TH/MM3 Lymphocytes # (Auto) 1.2 TH/MM3 1.3 TH/MM3 Monocytes # (Auto) 0.7 TH/MM3 0.7 TH/MM3 Eosinophils # (Auto) 0.2 TH/MM3 0.1 TH/MM3 Basophils # (Auto) 0.0 TH/MM3 0.0 TH/MM3 CBC Comment DIFF FINAL DIFF FINAL Differential Comment Laboratory Tests Test 03/17/17 20:20 03/18/17 06:10 03/18/17 11:55 03/19/17 04:56 Lactic Acid Level 3.6 mmol/L 3.8 mmol/L 1.0 mmol/L Blood Urea Nitrogen 9 MG/DL 12 MG/DL Creatinine 0.80 MG/DL 0.71 MG/DL Random Glucose 75 MG/DL 93 MG/DL Total Protein 8.4 GM/DL Albumin 2.5 GM/DL Calcium Level 8.3 MG/DL 8.7 MG/DL Alkaline Phosphatase 103 U/L Aspartate Amino Transf (AST/SGOT) 33 U/L Alanine Aminotransferase (ALT/SGPT) 18 U/L Total Bilirubin 0.3 MG/DL Sodium Level 137 MEQ/L 130 MEQ/L Potassium Level 3.3 MEQ/L 3.2 MEQ/L Chloride Level 103 MEQ/L 97 MEQ/L Carbon Dioxide Level 26.3 MEQ/L 25.7 MEQ/L Anion Gap 8 MEQ/L 7 MEQ/L Estimat Glomerular Filtration Rate 90 ML/MIN 103 ML/MIN Magnesium Level 1.5 MG/DL Microbiology Date/Time Source Procedure Growth Status 03/17/17 16:20 Blood Peripheral Aerobic Blood Culture - Preliminary NO GROWTH IN 2 DAYS Resulted 03/17/17 16:20 Blood Peripheral Anaerobic Blood Culture - Preliminary NO GROWTH IN 2 DAYS Resulted 03/17/17 16:15 Blood Peripheral Aerobic Blood Culture - Preliminary NO GROWTH IN 2 DAYS Resulted 03/17/17 16:15 Blood Peripheral Anaerobic Blood Culture - Preliminary NO GROWTH IN 2 DAYS Resulted 03/17/17 17:00 Wound Leg Gram Stain - Final Resulted 03/17/17 17:00 Wound Culture - Preliminary Group A Beta Strep Proteus Mirabilis Staphylococcus Aureus Resulted Radiology Last Impressions Lower Extremity Ultrasound 03/18/17 0000 Signed Impressions: Service Date/Time: Saturday, March 18, 2017 12:49 - CONCLUSION: Negative exam with no evidence of abscess. Gonsalo Burris MD Tibia/Fibula X-Ray 03/17/17 0000 Signed Impressions: Service Date/Time: March 17:36 - CONCLUSION: 1. No acute bony abnormality identified. Jj Rolle MD Assessment/Plan Problem List: (1) Peripheral vascular disease Status: Chronic (2) Tobacco abuse Status: Chronic (3) Cellulitis of right lower extremity without foot Status: Acute Additional Plans & Procedures PLAN: Ordered dressings to the right leg to be changed every other day. Await CTA and further vascular consult recommendations. Continue to follow. Discussed with the nurse Dustin John DPM Mar 19, 2017 18:44
--- NOTE | 2017-03-19 18:57 | RADRPT ---
EXAM DATE/TIME: 03/19/2017 17:35 [facility] COMPARISON: No previous studies available for comparison. INDICATIONS : Bilateral bruits. MEDICAL HISTORY : Right perforated ear drum. Asthma. Diabetes. SURGICAL HISTORY : None. ENCOUNTER: Initial ACUITY: 1 day PAIN SCORE: 10/10 LOCATION: Bilateral neck PEAK SYSTOLIC VELOCITIES (cm/sec): ICA/CCA RATIO: Right: 1.6 Left: 1.0 ICA: Right: 388.9 Left: 204.9 CCA: Right: 235.8 Left: 200.4 ECA: Right: 177.2 Left: 275.1 VERTEBRAL: Right: 41.8 retrograde Left: 89.8 antegrade Elevated flow velocities and ICA/CCA ratios have been found to correlate with increased degrees of vessel stenosis, calculated as percentage of diameter relative to a normal segment of distal ICA/CCA FINDINGS: RIGHT CAROTID: Mild patchy atherosclerosis without significant narrowing. LEFT CAROTID: Mild patchy atherosclerotic plaque, mostly in the proximal CCA. No significant narrowing seen. VERTEBRAL ARTERIES: Retrograde flow of the right vertebral artery. Left vertebral artery has antegrade flow. MISCELLANEOUS: None. CONCLUSION: 1. Mild patchy atherosclerosis of both carotids. No hemodynamically significant narrowing. 2. Retrograde flow within the right vertebral artery suggesting a right subclavian artery stenosis wi th steal phenomenon. Trevor Young MD on March 19, 2017 at 18:54 Board Certified Radiologist. This report was verified electronically.
[2017-03-19] MEDS ORDERED: IOHEXOL 350 MG/ML 10 ML VIAL (for RAD DIAG) IVCONTRAST ONE (19:00)
[2017-03-19] MEDS: CARVEDILOL 6.25 MG TAB PO SCH (21:01)
[2017-03-20] VITALS (20 sets, daily range): BP systolic 100–138; BP diastolic 64–76; PULSE 20–102; RESP 16–18; TEMP 97–99.2; O2SAT 95–98
[2017-03-20] MEDS: PIPERACIL-TAZO 4.5 GM PREMIX 100 ML IV SCH ×4 (00:24→16:49)
[2017-03-20] MEDS: VANCOMYCIN 1,000 MG/NS 250 ML IV SCH ×4 (06:19→16:45)
[2017-03-20] MEDS: SODIUM CHLOR 0.9% 1000 ML INJ 1,000 ML IV SCH ×2 (07:21→17:21)
[2017-03-20] MEDS: LOW DOSE INSULIN NOVOLOG SUPPLEMENTAL SCALE SQ SCH ×4 (08:00→21:00)
--- NOTE | 2017-03-20 08:50 | HHI.PR ---
Subjective Remarks Follow-up for right lower extremity cellulitis and PAD Right lower extremity pain controlled with just 6, 6/10, no nausea or vomiting. Denies any chest pain, afebrile. Status post CTA. Blood pressure is better, denies any headache Objective Vitals Vital Signs Date Time Temp Pulse Resp B/P (MAP) Pulse Ox O2 Delivery O2 Flow Rate FiO2 03/20/17 07:42 100 03/20/17 06:00 98 03/20/17 05:00 96 03/20/17 04:00 98.8 96 18 129/71 (90) 95 03/20/17 04:00 94 03/20/17 03:00 92 03/20/17 02:00 90 03/20/17 01:00 84 03/20/17 00:24 98.3 89 18 111/64 (80) 97 03/20/17 00:00 92 03/19/17 23:00 88 03/19/17 22:00 92 03/19/17 21:00 94 03/19/17 20:00 100 03/19/17 20:00 99.1 103 18 105/64 (78) 96 Manual Cuff/Auscultation 03/19/17 19:00 97 03/19/17 18:00 106 03/19/17 17:00 115 03/19/17 16:00 114 03/19/17 16:00 102.7 116 20 181/88 (119) 100 96/74 (81) 03/19/17 15:00 120 03/19/17 15:00 102.0 120 20 190/63 (105) 96 91/69 (76) 03/19/17 14:00 127 03/19/17 14:00 102.0 122 20 80/66 (71) 96 188/77 (114) 03/19/17 13:59 178/84 (115) Automatic Cuff 03/19/17 13:50 16 03/19/17 13:30 227/98 (141) Manual Cuff/Auscultation 03/19/17 11:57 238/118 (158) Automatic Cuff 03/19/17 11:19 99.5 96 20 240/105 (150) 97 03/19/17 09:24 98.8 103 20 201/93 (129) 96 I/O 11/18/17 11/03/19/17 03/20/17 03/20/17 03/20/17 07:00 15:00 23:00 07:00 15:00 23:00 Intake Total 200 ml 480 ml Balance 200 ml 480 ml Intake Oral 100 ml 480 ml IV Total 100 ml # Voids 1 2 2 # Bowel Movements 1 0 Result Diagram: 03/19/17 0456 03/19/17 0456 Imaging Last Impressions Carotid Artery Ultrasound 03/19/17 0000 Signed Impressions: Service Date/Time: Sunday, March 19, 2017 17:35 - CONCLUSION: 1. Mild patchy atherosclerosis of both carotids. No hemodynamically significant narrowing. 2. Retrograde flow within the right vertebral artery suggesting a right subclavian artery stenosis with steal phenomenon. Trevor Young MD Lower Extremity Ultrasound 03/18/17 0000 Signed Impressions: Service Date/Time: Saturday, March 18, 2017 12:49 - CONCLUSION: Negative exam with no evidence of abscess. Gonsalo Burris MD Tibia/Fibula X-Ray 03/17/17 0000 Signed Impressions: Service Date/Time: March 17:36 - CONCLUSION: 1. No acute bony abnormality identified. Jj Rolle MD Objective Remarks Not in distress PERRL, pink conjunctiva without injection, anicteric Normal rate and regular rhythm, no murmurs gallops or rubs appreciated. Clear to auscultation and symmetric bilaterally, normal respiratory effort. Normal bowel sounds, soft, non-tender, nondistended Extremities without clubbing, cyanosis, or edema. Right lower extremity dressings in place, pulse very feeble right dorsalis pedis. AAO x3, no cranial nerve deficits, moves all 4 extremities, no focal neurologic deficits A/P Problem List: (1) Cellulitis of leg, right ICD Code: L03.115 - Cellulitis of right lower limb (2) UTI (urinary tract infection) ICD Code: N39.0 - Urinary tract infection, site not specified (3) HTN (hypertension) ICD Code: I10 - Essential (primary) hypertension (4) Alcohol abuse ICD Code: F10.10 - Alcohol abuse, uncomplicated (5) Tobacco abuse ICD Code: Z72.0 - Tobacco use Status: Chronic Assessment and Plan This is a 56-year-old Homeless female with a PMH of HTN, Alcohol Abuse and Tobacco Abuse who presented to the ER with complaints of right lower extremity cellulitis. Right lower extremity cellulitis with sepsis with gangrene-culture growing group a beta Streptococcus, produces Staphylococcus, continue vancomycin and Zosyn, infectious disease following. Wound care and wound physician following. Peripheral arterial disease-NAVNEET is positive, vascular surgery consulted, awaiting CTA run off results. Carotid ultrasound pending. Hypertensive urgency-resolved, continue Coreg, lisinopril, clonidine and Vasotec as needed, Diabetes mellitus-status scale insulin with Accu-Cheks Alcohol and tobacco abuse-watch out for withdrawal, CIWA protocol, thiamine, folate and multivitamins. Hypomagnesemia-replaced, recheck BMP and magnesium tomorrow DVT prophylaxis: Heparin Kimber Gordon MD Mar 20, 2017 08:50
[2017-03-20] MEDS: SODIUM CHLORIDE 0.9% FLUSH 10 ML FLUSH IV FLUSH SCH ×2 (09:00→21:00)
[2017-03-20] MEDS ORDERED: LISINOPRIL 5 MG TAB PO SCH (09:00)
[2017-03-20] MEDS ORDERED: MAGNESIUM SULFATE 1 GM PREMIX 100 ML IV ONE (09:00)
[2017-03-20] MEDS: PANTOPRAZOLE SOD 40 MG DELAYED RELEASE TAB PO SCH (09:38)
[2017-03-20] MEDS: LACTOBACILLUS ACIDOPHILUS TAB PO SCH ×3 (09:38→16:49)
[2017-03-20] MEDS: CARVEDILOL 6.25 MG TAB PO SCH ×2 (09:38→21:19)
[2017-03-20] MEDS: MULTIVITAMINS/MINERALS THERAPEUTIC TAB PO SCH (09:38)
[2017-03-20] MEDS: THIAMINE HCL 100 MG TAB PO SCH (09:38)
[2017-03-20] MEDS: FOLIC ACID 1 MG TAB PO SCH (09:38)
[2017-03-20] MEDS: DOCUSATE SODIUM 50 MG/SENNA 8.6 MG TAB PO SCH ×2 (09:38→21:19)
[2017-03-20] MEDS: HEPARIN SODIUM - SQ 10,000 UNITS/ML VIAL SQ SCH ×2 (09:39→21:21)
[2017-03-20] MEDS: LISINOPRIL 20 MG TAB PO SCH (09:39)
--- NOTE | 2017-03-20 11:10 | PD.CAR.PN ---
CVT Progress Note Subjective/Hospital Course: Patient seen full consult dictated Thanks J 03/20/17 Patient with severe peripheral vascular disease and ulcers on the right leg encompassing most of the calf CTA with runoff pending We'll see what that shows and then decide if there is anything we can do for this patient as far as revascularization and chances of improvement of healing In the meantime patient needs wound care consult and adequate wound care to her calves Patient apparently lives on the [address] and this may be an issue with disposition US carotids - retrograde flow in R vertebral. This is consistent with significantly lower SBP in R arm and subclavian steel on the R. Patient however asymptomatic, so would leave it alone Objective: Vital Signs Date Time Temp Pulse Resp B/P (MAP) Pulse Ox O2 Delivery O2 Flow Rate FiO2 03/20/17 10:46 98.0 82 18 130/74 (92) 96 03/20/17 07:42 100 03/20/17 06:00 98 03/20/17 05:00 96 03/20/17 04:00 98.8 96 18 129/71 (90) 95 03/20/17 04:00 94 03/20/17 03:00 92 03/20/17 02:00 90 03/20/17 01:00 84 03/20/17 00:24 98.3 89 18 111/64 (80) 97 03/20/17 00:00 92 03/19/17 23:00 88 03/19/17 22:00 92 03/19/17 21:00 94 03/19/17 20:00 100 03/19/17 20:00 99.1 103 18 105/64 (78) 96 Manual Cuff/Auscultation 03/19/17 19:00 97 03/19/17 18:00 106 03/19/17 17:00 115 03/19/17 16:00 114 03/19/17 16:00 102.7 116 20 181/88 (119) 100 96/74 (81) 03/19/17 15:00 120 03/19/17 15:00 102.0 120 20 190/63 (105) 96 91/69 (76) 03/19/17 14:00 127 03/19/17 14:00 102.0 122 20 80/66 (71) 96 188/77 (114) 03/19/17 13:59 178/84 (115) Automatic Cuff 03/19/17 13:50 16 03/19/17 13:30 227/98 (141) Manual Cuff/Auscultation 03/19/17 11:57 238/118 (158) Automatic Cuff 03/19/17 11:19 99.5 96 20 240/105 (150) 97 Labs: Laboratory Tests Test 03/20/17 07:40 Magnesium Level 1.6 MG/DL (1.5-2.5) Result Diagram: 03/19/17 0456 03/19/17 0456 Dallas Monaco MD Mar 20, 2017 11:10
[2017-03-21] VITALS (29 sets, daily range): BP systolic 84–157; BP diastolic 60–82; PULSE 68–112; RESP 14–18; TEMP 97.9–99.5; O2SAT 94–98
[2017-03-21] MEDS: PIPERACIL-TAZO 4.5 GM PREMIX 100 ML IV SCH ×2 (00:20→05:26)
[2017-03-21] MEDS: SODIUM CHLOR 0.9% 1000 ML INJ 1,000 ML IV SCH (03:21)
[2017-03-21] MEDS ORDERED: PHARMACY ORDERED LAB ONE (05:45)
[2017-03-21] MEDS: ACETAMINOPHEN 325 MG TAB PO PRN (06:05)
[2017-03-21] MEDS: VANCOMYCIN 1,000 MG/NS 250 ML IV SCH ×2 (06:06)
[2017-03-21 07:19] LABS: BICARBONATE 25.5 MEQ/L (21.0-32.0); MAGNESIUM 1.8 MG/DL (1.5-2.5); POTASSIUM 3.3 MEQ/L (3.5-5.1)
[2017-03-21] MEDS: LOW DOSE INSULIN NOVOLOG SUPPLEMENTAL SCALE SQ SCH ×4 (08:00→21:00)
--- NOTE | 2017-03-21 08:07 | RADRPT ---
EXAM DATE/TIME: 03/19/2017 18:47 [facility] COMPARISON: No previous studies available for comparison. INDICATIONS : Right leg swelling with cellulitis. IV CONTRAST: 100 cc Omnipaque 350 (iohexol) IV RADIATION DOSE: 1.19 CTDIvol (mGy) MEDICAL HISTORY : Hypertension. Cardiovascular disease Diabetes mellitus type 2. SURGICAL HISTORY : Coronary artery stent. ENCOUNTER: Initial ACUITY: 1 day PAIN SCALE: 5/10 LOCATION: Left leg TECHNIQUE: Volumetric scanning was performed using a multi-row detector CT scanner. The data was post processed with a variety of visualization algorithms including full volume maximum intensity projection, multi -planar sliding thin slab reformation, curved planar reformation, and surface rendering techniques. Using automated exposure control and adjustment of the mA and/or kV according to patient size, radiat ion dose was kept as low as reasonably achievable to obtain optimal diagnostic quality images. DICO M format image data is available electronically for review and comparison. FINDINGS: AORTA: Moderate adverse chronic calcifications of the infrarenal abdominal aorta with out significant flow-l imiting stenosis or aneurysm. VISCERAL ARTERIES: Single bilateral renal arteries. Moderate stenosis of the proximal left renal artery secondary to mix ed plaque. Mild stenosis of the right renal artery origin. Mild stenosis at the celiac origin seconda ry to mixed plaque. Mild stenosis of the proximal SMA secondary to noncalcified plaque. JA appears o ccluded at the origin but reconstitutes to near the origin. RIGHT LEG: INFLOW: Moderate calcified plaque at the origin of the right common iliac artery with resultant mild stenosis . Internal iliac artery is heavily calcified and critically stenosed at the origin. The extrahepatic artery is patent. Common femoral artery is patent. OUTFLOW: Profunda is patent. Extensive diffuse SFA disease with focal cortical stenosis in the proximal thigh and near the abductor canal. There is also diffuse severe stenosis in the mid to distal thigh. Tandem moderate stenoses of the above-knee popliteal artery. Below knee popliteal artery is small in calibe r but otherwise patent. RUNOFF: Bulky calcified plaque at fusion of the anterior tibial and tibioperoneal trunks. Otherwise, three-ve ssel runoff to the foot. LEFT LEG: INFLOW: Bulky calcified plaque at the origin of the left common iliac artery with result in mild stenosis. He avily calcified internal iliac artery with moderate stenosis at the origin. External iliac artery is patent. Common femoral artery is patent. OUTFLOW: Moderate profunda origin stenosis. SFA is diffusely diseased with critical stenosis in the proximal t high and tandem focal occlusions in the mid thigh. SFA is heavily diseased in the distal thigh. Bulky calcified plaque with resultant moderate to severe stenosis involving the mid above-knee popliteal a rtery. There is also focal severe stenosis of the popliteal artery at the level of the knee. Below kn ee popliteal artery is small in caliber but otherwise patent. RUNOFF: Bulky calcified plaque at the origin of the anterior tibial artery. Otherwise, three-vessel runoff to the foot. GENERAL FINDINGS: Visualized lung bases demonstrate mild atelectasis. Evaluation of the abdominal viscera is limited du e to arterial phase technique. There is a 1.6 x 1.5 cm right adrenal mass. Liver, spleen, left adrena l gland, gallbladder, and pancreas are grossly unremarkable. Kidneys demonstrate symmetrical enhancem ent without evidence for radiopaque renal calculi or hydronephrosis. 2.3 cm cyst in the medial mid le ft kidney. The bowel appears unremarkable without evidence for obstruction. No significant free fluid or drainable fluid collection. Bladder is mildly distended but otherwise unremarkable. Leiomyomatous uterus. No focal abnormal lytic or blastic bony lesions. CONCLUSION: 1. No significant aortic stenosis or iliac inflow disease. 2. Extensive bilateral SFA disease and moderate bilateral above-knee popliteal artery disease, as abo ve. Patient would likely benefit from outflow intervention. 3. Bulky plaque at the origin of the anterior tibial arteries bilaterally and right tibioperoneal libby nk. Otherwise, three-vessel runoff to the foot. 4. 1.6 cm indeterminate right adrenal mass. This can be further evaluated with adrenal mass protocol CT or MRI exam on an outpatient basis as clinically warranted. Gautam Alba MD on March 21, 2017 at 7:37 Board Certified Radiologist. This report was verified electronically.
[2017-03-21] MEDS ORDERED: POTASSIUM CHLORIDE 10 MEQ CONTROLLED RELEASE TAB PO ONE (08:30)
--- NOTE | 2017-03-21 08:33 | HHI.PR ---
Subjective Remarks in no acute distress. remains afebrile. pain is mild. no other complaints. Objective Vitals Vital Signs Date Time Temp Pulse Resp B/P (MAP) Pulse Ox O2 Delivery O2 Flow Rate FiO2 03/21/17 07:01 74 03/21/17 06:15 79 03/21/17 05:56 79 03/21/17 04:37 85 03/21/17 03:40 98.4 83 17 91/60 (70) 97 03/21/17 03:25 89 03/21/17 02:15 86 03/21/17 01:16 89 03/21/17 00:30 88 03/20/17 23:45 93 03/20/17 23:30 99.2 96 17 104/76 (85) 98 03/20/17 22:15 90 03/20/17 21:16 99.2 90 16 100/74 (83) 98 03/20/17 21:00 102 03/20/17 20:00 84 03/20/17 19:20 84 03/20/17 15:48 97.0 84 18 128/64 (85) 96 03/20/17 15:12 80 03/20/17 12:47 97.4 20 18 138/70 (92) 97 03/20/17 10:46 98.0 82 18 130/74 (92) 96 I/O 03/20/17 03/20/17 03/20/17 03/21/17 03/21/17 03/21/17 07:00 15:00 23:00 07:00 15:00 23:00 Intake Total 480 ml 1300 ml 480 ml Output Total 1200 ml Balance 480 ml 100 ml 480 ml Intake Oral 480 ml 480 ml IV Total 1300 ml Output Urine Total 1200 ml # Voids 2 2 # Bowel Movements 0 Result Diagram: 03/19/17 0456 03/21/17 0532 Imaging Last Impressions Carotid Artery Ultrasound 03/19/17 0000 Signed Impressions: Service Date/Time: Sunday, March 19, 2017 17:35 - CONCLUSION: 1. Mild patchy atherosclerosis of both carotids. No hemodynamically significant narrowing. 2. Retrograde flow within the right vertebral artery suggesting a right subclavian artery stenosis with steal phenomenon. Trevor Young MD Aorta w/Runoff CTA 03/19/17 0000 Signed Impressions: Service Date/Time: Sunday, March 19, 2017 18:47 - CONCLUSION: 1. No significant aortic stenosis or iliac inflow disease. 2. Extensive bilateral SFA disease and moderate bilateral above-knee popliteal artery disease, as above. Patient would likely benefit from outflow intervention. 3. Bulky plaque at the origin of the anterior tibial arteries bilaterally and right tibioperoneal trunk. Otherwise, three-vessel runoff to the foot. 4. 1.6 cm indeterminate right adrenal mass. This can be further evaluated with adrenal mass protocol CT or MRI exam on an outpatient basis as clinically warranted. Gautam Alba MD Lower Extremity Ultrasound 03/18/17 0000 Signed Impressions: Service Date/Time: Saturday, March 18, 2017 12:49 - CONCLUSION: Negative exam with no evidence of abscess. Gonsalo Burris MD Tibia/Fibula X-Ray 03/17/17 0000 Signed Impressions: Service Date/Time: March 17:36 - CONCLUSION: 1. No acute bony abnormality identified. Jj Rolle MD Objective Remarks GENERAL: This is a well-nourished, well-developed patient, in no apparent distress. CARDIOVASCULAR: Regular rate and regular rhythm without murmurs, gallops, or rubs. RESPIRATORY: Clear to auscultation. Breath sounds equal bilaterally. No wheezes , rales, or rhonchi. GASTROINTESTINAL: Abdomen soft, non-tender, nondistended. Normal, active bowel sounds MUSCULOSKELETAL: right leg covered with clean dressing. NEURO: Alert & Oriented x4 to person, place, time, situation. Moves all ext x4 Medications and IVs Current Medications Vancomycin HCl 1000 mg/Sodium Chloride 250 ml @ 250 mls/hr ONCE ONCE IV Last administered on 03/17/17 16:15; Start 03/17/17 at 16:15; Stop 03/17/17 at 17 :14; Status DC Morphine Sulfate (Morphine Inj) 4 mg ONCE ONCE IV PUSH Last administered on 17:21; Start 03/17/17 at 16:15; Stop 03/17/17 at 16:16; Status DC Ondansetron HCl (Zofran Inj) 4 mg ONCE ONCE IV PUSH Last administered on 03/17 16:15; Start 03/17/17 at 16:15; Stop 03/17/17 at 16:16; Status DC Piperacillin Sod/ Tazobactam Sod 100 ml @ 200 mls/hr ONCE ONCE IV Last administered on 03/17/17 19:09; Start 03/17/17 at 17:30; Stop 03/17/17 at 17 :59; Status DC Sodium Chloride 1,000 ml @ 1,000 mls/hr Q1H ONCE IV Last administered on 03/17 17:20; Start 03/17/17 at 17:20; Stop 03/17/17 at 18:19; Status DC Sodium Chloride 1,000 ml @ 1,000 mls/hr Q1H ONCE IV Last administered on 03/17 17:20; Start 03/17/17 at 17:20; Stop 03/17/17 at 18:19; Status DC Sodium Chloride 100 ml @ 1,000 mls/hr Q6M ONCE IV Last administered on 19:56; Start 03/17/17 at 17:20; Stop 03/17/17 at 17:25; Status DC Pharmacy Profile Note 0 ml @ 0 mls/hr UNSCH OTHER ; Start 03/17/17 at 19:30 Folic Acid (Folate) 1 mg DAILY PO Last administered on 03/20/17 09:38; Start 03/18/17 at 09:00; Stop 03/23/17 at 08:59 Thiamine HCl (Vitamin B1) 100 mg DAILY PO Last administered on 03/20/17 09:38 ; Start 03/18/17 at 09:00 Multivitamins/ Minerals Therapeutic (Theragran M Tab) 1 tab DAILY PO Last administered on 03/20/17 09:38; Start 03/18/17 at 09:00; Stop 03/23/17 at 08 :59 Flumazenil (Romazicon Inj) 0.2 mg Q1M PRN IV PUSH SEE LABEL COMMENTS; Start at 19:30 Lorazepam (Ativan) 1 mg Q4H PRN PO CIWA 8 - 10; Start 03/17/17 at 19:30 Lorazepam (Ativan Inj) 1 mg Q4H PRN IV PUSH CIWA 8 - 10; Start 03/17/17 at 19: 30 Lorazepam (Ativan) 2 mg Q2H PRN PO CIWA 11-14; Start 03/17/17 at 19:30 Lorazepam (Ativan Inj) 2 mg Q2H PRN IV PUSH CIWA 11-14; Start 03/17/17 at 19: 30 Lorazepam (Ativan Inj) 2 mg Q1H PRN IV PUSH CIWA 15-20; Start 03/17/17 at 19: 30 Lorazepam (Ativan Inj) 2 mg Q15M PRN IV PUSH CIWA > 20; Start 03/17/17 at 19: 30 Haloperidol Lactate (Haldol Inj) 2 mg Q15M PRN IM SEE LABEL COMMENTS; Start at 19:30 Piperacillin Sod/ Tazobactam Sod 100 ml @ 200 mls/hr Q6H IV Last administered on 03/21/17 05:26; Start 03/18/17 at 00:00 Sodium Chloride 1,000 ml @ 100 mls/hr Q10H IV Last administered on 03/20/17 17:21; Start 03/17/17 at 19:21 Sodium Chloride (NS Flush) 2 ml UNSCH PRN IV FLUSH FLUSH AFTER USING IV ACCESS ; Start 03/17/17 at 19:30 Sodium Chloride (NS Flush) 2 ml BID IV FLUSH Last administered on 03/20/17 21 :00; Start 03/17/17 at 21:00 Ondansetron HCl (Zofran Inj) 4 mg Q6H PRN IVP NAUSEA OR VOMITING; Start at 19:30 Heparin Sodium (Porcine) (Heparin Inj) 5,000 units Q12H SQ Last administered on 03/20/17 21:21; Start 03/18/17 at 09:00 Acetaminophen (Tylenol) 650 mg Q6H PRN PO FEVER/PAIN SCALE 1 TO 2 Last administered on 03/21/17 06:05; Start 03/17/17 at 19:30 Oxycodone HCl (Roxicodone) 10 mg Q4H PRN PO PAIN SCALE 6 TO 10 Last administered on 03/21/17 01:34; Start 03/17/17 at 19:30 Oxycodone HCl (Roxicodone) 5 mg Q4H PRN PO PAIN SCALE 3 TO 5 Last administered on 03/19/17 17:54; Start 03/17/17 at 19:30 Senna/Docusate Sodium (Heena-Colace) 1 tab BID PO Last administered on 21:19; Start 03/17/17 at 21:00 Magnesium Hydroxide (Milk Of Magnesia Liq) 30 ml Q12H PRN PO Mild constipation ; Start 03/17/17 at 19:30 Sennosides (Senokot) 17.2 mg Q12H PRN PO Moderate constipation; Start at 19:30 Bisacodyl (Dulcolax Supp) 10 mg DAILY PRN RECTAL SEVERE CONSITIPATION; Start 03/17/17 at 19:30 Lactulose (Lactulose Liq) 30 ml DAILY PRN PO SEVERE CONSITIPATION; Start 03/17 at 19:30 Metoprolol Tartrate (Lopressor Inj) 5 mg ONCE ONCE IV PUSH Last administered on 03/17/17 20:26; Start 03/17/17 at 20:15; Stop 03/17/17 at 20:19; Status DC Vancomycin HCl 1000 mg/Sodium Chloride 250 ml @ 250 mls/hr Q12H IV Last administered on 03/21/17 06:06; Start 03/18/17 at 06:00 Miscellaneous Information SPECIFIC LAB TO BE JC... ONCE ONCE .XX ; Start at 05:45; Stop 03/19/17 at 05:49; Status DC Clonidine (Catapres) 0.1 mg ONCE ONCE PO Last administered on 03/18/17 01:02 ; Start 03/18/17 at 00:45; Stop 03/18/17 at 00:49; Status DC Clonidine (Catapres) 0.1 mg Q6H PRN PO SEE LABEL COMMENTS Last administered on 03/19/17 12:11; Start 03/18/17 at 01:00 Pneumococcal Polyvalent Vaccine (Pneumovax-23 Inj) 25 mcg ONCE ONCE IM Last administered on 03/18/17 11:32; Start 03/18/17 at 09:00; Stop 03/18/17 at 09 :01; Status DC Influenza Virus Vaccine (Flu (Quadrivalent) Vaccine Inj) 0.5 ml ONCE ONCE IM Last administered on 03/18/17 11:30; Start 03/18/17 at 09:00; Stop 03/18/17 at 09:01; Status DC Potassium Chloride (KCl) 40 meq ONCE ONCE PO Last administered on 03/18/17 11:26; Start 03/18/17 at 11:00; Stop 03/18/17 at 11:16; Status DC Carvedilol (Coreg) 3.125 mg BID PO Last administered on 03/19/17 09:00; Start 03/18/17 at 11:30; Stop 03/19/17 at 11:46; Status DC Pantoprazole Sodium (Protonix) 40 mg DAILY PO Last administered on 03/20/17 09:38; Start 03/19/17 at 09:00 Lisinopril (Prinivil) 5 mg DAILY PO Last administered on 03/19/17 08:59; Start 03/18/17 at 12:30; Stop 03/19/17 at 11:46; Status DC Enalaprilat (Vasotec Inj) 1.25 mg Q6H PRN IV PUSH bp>160/90 Last administered on 03/19/17 00:59; Start 03/18/17 at 12:30 Sodium Chloride 1,000 ml @ 999 mls/hr BOLUS ONCE IV Last administered on 15:42; Start 03/18/17 at 14:30; Stop 03/18/17 at 15:30; Status DC Lisinopril (Prinivil) 40 mg DAILY PO Last administered on 03/20/17 09:39; Start 03/20/17 at 09:00 Carvedilol (Coreg) 6.25 mg Q12HR PO Last administered on 03/20/17 21:19; Start 03/19/17 at 21:00 Hydralazine HCl (Apresoline Inj) 20 mg ONCE ONCE IV PUSH Last administered on 03/19/17 12:35; Start 03/19/17 at 11:45; Stop 03/19/17 at 11:59; Status DC Lisinopril (Prinivil) 40 mg DAILY PO ; Start 03/20/17 at 09:00; Status UNV Lactobacillus Acidophilus (Lactinex) 1 tab TID PO Last administered on 16:49; Start 03/19/17 at 13:00 Lisinopril (Prinivil) 40 mg ONCE STAT PO ; Start 03/19/17 at 12:45; Stop at 12:53; Status DC Carvedilol (Coreg) 3.125 mg ONCE STAT PO ; Start 03/19/17 at 12:45; Stop at 12:53; Status DC Miscellaneous Information SPECIFIC LAB TO BE JC... ONCE ONCE .XX Last administered on 03/21/17 05:45; Start 03/21/17 at 05:45; Stop 03/21/17 at 05 :46; Status DC Potassium Chloride (KCl) 40 meq ONCE ONCE PO Last administered on 03/19/17 15:08; Start 03/19/17 at 14:45; Stop 03/19/17 at 14:46; Status DC Dextrose (D50w (Vial) Inj) 50 ml UNSCH PRN IV PUSH HYPOGLYCEMIA - SEE COMMENTS ; Start 03/19/17 at 17:30 Glucagon (Glucagon Inj) 1 mg UNSCH PRN OTHER HYPOGLYCEMIA-SEE COMMENTS; Start 03/19/17 at 17:30 Insulin Aspart (NovoLOG SUPPLEMENTAL SCALE) 1 ACHS SLIDING SCALE SQ Last administered on 03/19/17 21:00; Start 03/19/17 at 17:21 Magnesium Sulfate/ Dextrose 100 ml @ 100 mls/hr ONCE ONCE IV Last administered on 03/19/17 17:56; Start 03/19/17 at 17:45; Stop 03/19/17 at 18 :44; Status DC Iohexol (Omnipaque 350 Inj) 100 ml STK-MED ONCE IVCONTRAST Last administered on 03/19/17 19:00; Start 03/19/17 at 19:00; Stop 03/19/17 at 19:01; Status DC Magnesium Sulfate/ Dextrose 100 ml @ 100 mls/hr ONCE ONCE IV Last administered on 03/20/17 09:39; Start 03/20/17 at 09:00; Stop 03/20/17 at 09 :59; Status DC A/P Problem List: (1) Cellulitis of leg, right ICD Code: L03.115 - Cellulitis of right lower limb (2) UTI (urinary tract infection) ICD Code: N39.0 - Urinary tract infection, site not specified (3) HTN (hypertension) ICD Code: I10 - Essential (primary) hypertension (4) Alcohol abuse ICD Code: F10.10 - Alcohol abuse, uncomplicated (5) Tobacco abuse ICD Code: Z72.0 - Tobacco use Status: Chronic Assessment and Plan A/P Right lower extremity cellulitis with sepsis with gangrene-culture growing group a beta Streptococcus, produces Staphylococcus, continue vancomycin and Zosyn, infectious disease following. Wound care and wound physician following. Peripheral arterial disease-NAVNEET is positive. CTA run off as noted above. awaiting vascular surgery follow-up. right subclavian artery stenosis with steal phenomenon- vascular surgery f/u appreciated and no intervention at this time. Hypertensive urgency-resolved, continue Coreg, lisinopril, clonidine and Vasotec as needed, Diabetes mellitus-status scale insulin with Accu-Cheks Alcohol and tobacco abuse-watch out for withdrawal, CIWA protocol, thiamine, folate and multivitamins. Hypomagnesemia-replaced. Hypokalemia; will replace. hyponatremia; will monitor. right adrenal mass- f/u as outpatient. DVT prophylaxis: Heparin Maxx Banuelos MD Mar 21, 2017 08:33
[2017-03-21] MEDS: DOCUSATE SODIUM 50 MG/SENNA 8.6 MG TAB PO SCH ×2 (08:54→21:00)
[2017-03-21] MEDS: FOLIC ACID 1 MG TAB PO SCH (08:54)
[2017-03-21] MEDS: HEPARIN SODIUM - SQ 10,000 UNITS/ML VIAL SQ SCH ×2 (08:54→22:56)
[2017-03-21] MEDS: MULTIVITAMINS/MINERALS THERAPEUTIC TAB PO SCH (08:54)
[2017-03-21] MEDS: PANTOPRAZOLE SOD 40 MG DELAYED RELEASE TAB PO SCH (08:54)
[2017-03-21] MEDS: THIAMINE HCL 100 MG TAB PO SCH (08:54)
[2017-03-21] MEDS: LACTOBACILLUS ACIDOPHILUS TAB PO SCH ×3 (08:54→18:25)
[2017-03-21] MEDS: LISINOPRIL 20 MG TAB PO SCH (09:00)
[2017-03-21] MEDS: SODIUM CHLORIDE 0.9% FLUSH 10 ML FLUSH IV FLUSH SCH ×2 (09:00→22:57)
[2017-03-21] MEDS: CARVEDILOL 6.25 MG TAB PO SCH ×2 (09:00→22:56)
[2017-03-21] MEDS: AMPICILLIN-SULBACTAM INJ 3 GM in SODIUM CHLORIDE 0.9% INJ 100 ML IV SCH ×3 (10:46→22:00)
--- NOTE | 2017-03-21 13:56 | PD.CAR.PN ---
CVT Progress Note Subjective/Hospital Course: Patient seen full consult dictated Thanks J 03/20/17 Patient with severe peripheral vascular disease and ulcers on the right leg encompassing most of the calf CTA with runoff pending We'll see what that shows and then decide if there is anything we can do for this patient as far as revascularization and chances of improvement of healing In the meantime patient needs wound care consult and adequate wound care to her calves Patient apparently lives on the [place] and this may be an issue with disposition US carotids - retrograde flow in R vertebral. This is consistent with significantly lower SBP in R arm and subclavian steel on the R. Patient however asymptomatic, so would leave it alone 03/21/17 Patient with severe peripheral vascular disease and nonhealing ulcers of the legs as well as presumptive left subclavian stenosis At this point the leg issue has to be addressed in face of acute ulcers I reviewed CTA with a runoff Right leg the vasculature inflow is intact and then there is a occlusion of superficial femoral artery in addition to multilevel stenoses. Popliteal artery looks okay and anterior tibial artery is the dominant vessel with a runoff Left leg again has several areas of stenosis of SFA and then a very tight stenosis of trifurcation. Considering that the right side is symptomatic we'll proceed with right femoropopliteal bypass and see how patient does I am worried about doing in the endovascular interventions here because patient is noncompliant with either follow-up or medications which makes endovascular results quite dubious Right femoropopliteal bypass tomorrow Objective: Vital Signs Date Time Temp Pulse Resp B/P (MAP) Pulse Ox O2 Delivery O2 Flow Rate FiO2 03/21/17 13:01 68 03/21/17 12:00 72 03/21/17 11:25 98.2 72 18 84/64 (71) 98 03/21/17 11:00 79 03/21/17 10:01 72 03/21/17 09:00 78 03/21/17 08:45 98.0 78 18 103/64 (77) 98 03/21/17 08:00 76 03/21/17 07:01 74 03/21/17 06:15 79 03/21/17 05:56 79 03/21/17 04:37 85 03/21/17 03:40 98.4 83 17 91/60 (70) 97 03/21/17 03:25 89 03/21/17 02:15 86 03/21/17 01:16 89 03/21/17 00:30 88 03/20/17 23:45 93 03/20/17 23:30 99.2 96 17 104/76 (85) 98 03/20/17 22:15 90 03/20/17 21:16 99.2 90 16 100/74 (83) 98 03/20/17 21:00 102 03/20/17 20:00 84 03/20/17 19:20 84 03/20/17 15:48 97.0 84 18 128/64 (85) 96 03/20/17 15:12 80 Labs: Laboratory Tests Test 03/21/17 05:32 Blood Urea Nitrogen 9 MG/DL (7-18) Creatinine 0.65 MG/DL (0.50-1.00) Random Glucose 89 MG/DL (74-106) Calcium Level 8.3 MG/DL (8.5-10.1) Magnesium Level 1.8 MG/DL (1.5-2.5) Sodium Level 129 MEQ/L (136-145) Potassium Level 3.3 MEQ/L (3.5-5.1) Chloride Level 96 MEQ/L (98-107) Carbon Dioxide Level 25.5 MEQ/L (21.0-32.0) Anion Gap 8 MEQ/L (5-15) Estimat Glomerular Filtration Rate 115 ML/MIN (>89) Vancomycin Level Trough 10.0 MCG/ML (5.0-10.0) Result Diagram: 03/19/17 0456 03/21/17 0532 Dallas Monaco MD Mar 21, 2017 13:55
[2017-03-21 22:18] LABS: C. DIFF EPI 027 PRESUMPTIVE NEGATIVE (NEGATIVE)
[2017-03-22] VITALS (22 sets, daily range): BP systolic 146–186; BP diastolic 68–89; PULSE 62–100; RESP 16–18; TEMP 98.1–99.6; O2SAT 93–96
[2017-03-22] MEDS ORDERED: LACTATED RINGER'S 1000 ML IV PRN (05:45)
[2017-03-22] MEDS ORDERED: CHLORHEXIDINE GLUCONATE 2 % 1 PACK (2 CLOTHS) TOPICAL PRN (05:45)
[2017-03-22] MEDS ORDERED: POVIDONE IODINE 5% (ANTISEPSIS KIT) 4 APPLICATIONS EACH NARE PRN (05:45)
[2017-03-22] MEDS ORDERED: HEPARIN SODIUM - IV 10,000 UNITS/10 ML VIAL ONE (07:51)
[2017-03-22] MEDS ORDERED: PROTAMINE SULFATE 50 MG/5 ML VIAL ONE (07:51)
[2017-03-22] MEDS: THIAMINE HCL 100 MG TAB PO SCH (08:32)
[2017-03-22] MEDS: LISINOPRIL 20 MG TAB PO SCH (08:33)
[2017-03-22] MEDS: CARVEDILOL 6.25 MG TAB PO SCH ×2 (08:33→22:42)
[2017-03-22] MEDS: LACTOBACILLUS ACIDOPHILUS TAB PO SCH ×3 (08:33→17:32)
[2017-03-22] MEDS: MULTIVITAMINS/MINERALS THERAPEUTIC TAB PO SCH (08:33)
[2017-03-22] MEDS: FOLIC ACID 1 MG TAB PO SCH (08:33)
[2017-03-22] MEDS: DOCUSATE SODIUM 50 MG/SENNA 8.6 MG TAB PO SCH ×2 (08:33→22:42)
[2017-03-22] MEDS: PANTOPRAZOLE SOD 40 MG DELAYED RELEASE TAB PO SCH (08:33)
[2017-03-22] MEDS: SODIUM CHLORIDE 0.9% FLUSH 10 ML FLUSH IV FLUSH SCH ×2 (08:34→21:00)
[2017-03-22] MEDS: LOW DOSE INSULIN NOVOLOG SUPPLEMENTAL SCALE SQ SCH ×4 (08:34→21:00)
[2017-03-22] MEDS: HEPARIN SODIUM - SQ 10,000 UNITS/ML VIAL SQ SCH ×2 (09:00→22:44)
--- NOTE | 2017-03-22 09:30 | HHI.PR ---
Subjective Remarks in no acute distress. denies pain. no fever. awaiting vascular intervention today. d/w the RN. Objective Vitals Vital Signs Date Time Temp Pulse Resp B/P (MAP) Pulse Ox O2 Delivery O2 Flow Rate FiO2 03/22/17 08:37 99.6 97 18 153/85 (107) 93 03/22/17 06:00 74 03/22/17 05:00 76 03/22/17 04:00 100 03/22/17 03:30 99.0 79 16 150/68 (95) 94 03/22/17 03:00 82 03/22/17 02:00 80 03/22/17 01:00 84 03/22/17 00:00 84 03/22/17 00:00 14 03/21/17 23:30 82 14 157/73 (101) 97 03/21/17 23:00 86 03/21/17 22:00 96 03/21/17 21:00 96 03/21/17 20:00 99.5 93 16 123/82 (96) 97 03/21/17 20:00 112 03/21/17 19:00 94 03/21/17 18:00 88 03/21/17 17:01 78 03/21/17 16:00 74 03/21/17 15:30 97.9 86 18 103/73 (83) 94 03/21/17 15:00 74 03/21/17 14:00 68 03/21/17 13:01 68 03/21/17 12:00 72 03/21/17 11:25 98.2 72 18 84/64 (71) 98 03/21/17 11:00 79 03/21/17 10:01 72 I/O 03/21/17 03/21/17 03/21/17 03/22/17 03/22/17 03/22/17 07:00 15:00 23:00 07:00 15:00 23:00 Intake Total 480 ml 100 ml 960 ml Output Total 100 ml 300 ml Balance 480 ml 100 ml 860 ml -300 ml Intake Oral 480 ml 960 ml IV Total 100 ml Output Urine Total 100 ml 300 ml # Voids 2 4 1 # Bowel Movements 0 1 2 Result Diagram: 03/19/17 0456 03/21/17 0532 Imaging Last Impressions Carotid Artery Ultrasound 03/19/17 0000 Signed Impressions: Service Date/Time: Sunday, March 19, 2017 17:35 - CONCLUSION: 1. Mild patchy atherosclerosis of both carotids. No hemodynamically significant narrowing. 2. Retrograde flow within the right vertebral artery suggesting a right subclavian artery stenosis with steal phenomenon. Trevor Young MD Aorta w/Runoff CTA 03/19/17 0000 Signed Impressions: Service Date/Time: Sunday, March 19, 2017 18:47 - CONCLUSION: 1. No significant aortic stenosis or iliac inflow disease. 2. Extensive bilateral SFA disease and moderate bilateral above-knee popliteal artery disease, as above. Patient would likely benefit from outflow intervention. 3. Bulky plaque at the origin of the anterior tibial arteries bilaterally and right tibioperoneal trunk. Otherwise, three-vessel runoff to the foot. 4. 1.6 cm indeterminate right adrenal mass. This can be further evaluated with adrenal mass protocol CT or MRI exam on an outpatient basis as clinically warranted. Gautam Alba MD Lower Extremity Ultrasound 03/18/17 0000 Signed Impressions: Service Date/Time: Saturday, March 18, 2017 12:49 - CONCLUSION: Negative exam with no evidence of abscess. Gonsalo Burris MD Tibia/Fibula X-Ray 03/17/17 0000 Signed Impressions: Service Date/Time: March 17:36 - CONCLUSION: 1. No acute bony abnormality identified. Jj Rolle MD Objective Remarks GENERAL: This is a well-nourished, well-developed patient, in no apparent distress. CARDIOVASCULAR: Regular rate and regular rhythm without murmurs, gallops, or rubs. RESPIRATORY: Clear to auscultation. Breath sounds equal bilaterally. No wheezes , rales, or rhonchi. GASTROINTESTINAL: Abdomen soft, non-tender, nondistended. Normal, active bowel sounds MUSCULOSKELETAL: right leg covered with clean dressing. NEURO: Alert & Oriented x4 to person, place, time, situation. Moves all ext x4 Medications and IVs Current Medications Vancomycin HCl 1000 mg/Sodium Chloride 250 ml @ 250 mls/hr ONCE ONCE IV Last administered on 03/17/17t 16:15; Start 03/17/17 at 16:15; Stop 03/17/17 at 17 :14; Status DC Morphine Sulfate (Morphine Inj) 4 mg ONCE ONCE IV PUSH Last administered on 17:21; Start 03/17/17 at 16:15; Stop 03/17/17 at 16:16; Status DC Ondansetron HCl (Zofran Inj) 4 mg ONCE ONCE IV PUSH Last administered on 03/17 16:15; Start 03/17/17 at 16:15; Stop 03/17/17 at 16:16; Status DC Piperacillin Sod/ Tazobactam Sod 100 ml @ 200 mls/hr ONCE ONCE IV Last administered on 03/17/17 19:09; Start 03/17/17 at 17:30; Stop 03/17/17 at 17 :59; Status DC Sodium Chloride 1,000 ml @ 1,000 mls/hr Q1H ONCE IV Last administered on 03/17 17:20; Start 03/17/17 at 17:20; Stop 03/17/17 at 18:19; Status DC Sodium Chloride 1,000 ml @ 1,000 mls/hr Q1H ONCE IV Last administered on 03/17 17:20; Start 03/17/17 at 17:20; Stop 03/17/17 at 18:19; Status DC Sodium Chloride 100 ml @ 1,000 mls/hr Q6M ONCE IV Last administered on 19:56; Start 03/17/17 at 17:20; Stop 03/17/17 at 17:25; Status DC Pharmacy Profile Note 0 ml @ 0 mls/hr UNSCH OTHER ; Start 03/17/17 at 19:30; Stop 03/21/17 at 09:47; Status DC Folic Acid (Folate) 1 mg DAILY PO Last administered on 03/22/17 08:33; Start 03/18/17 at 09:00; Stop 03/23/17 at 08:59 Thiamine HCl (Vitamin B1) 100 mg DAILY PO Last administered on 03/22/17 08:32 ; Start 03/18/17 at 09:00 Multivitamins/ Minerals Therapeutic (Theragran M Tab) 1 tab DAILY PO Last administered on 03/22/17 08:33; Start 03/18/17 at 09:00; Stop 03/23/17 at 08 :59 Flumazenil (Romazicon Inj) 0.2 mg Q1M PRN IV PUSH SEE LABEL COMMENTS; Start at 19:30 Lorazepam (Ativan) 1 mg Q4H PRN PO CIWA 8 - 10; Start 03/17/17 at 19:30 Lorazepam (Ativan Inj) 1 mg Q4H PRN IV PUSH CIWA 8 - 10; Start 03/17/17 at 19: 30 Lorazepam (Ativan) 2 mg Q2H PRN PO CIWA 11-14; Start 03/17/17 at 19:30 Lorazepam (Ativan Inj) 2 mg Q2H PRN IV PUSH CIWA 11-14; Start 03/17/17 at 19: 30 Lorazepam (Ativan Inj) 2 mg Q1H PRN IV PUSH CIWA 15-20; Start 03/17/17 at 19: 30 Lorazepam (Ativan Inj) 2 mg Q15M PRN IV PUSH CIWA > 20; Start 03/17/17 at 19: 30 Haloperidol Lactate (Haldol Inj) 2 mg Q15M PRN IM SEE LABEL COMMENTS; Start at 19:30 Piperacillin Sod/ Tazobactam Sod 100 ml @ 200 mls/hr Q6H IV Last administered on 03/21/17 05:26; Start 03/18/17 at 00:00; Stop 03/21/17 at 09:47; Status DC Sodium Chloride 1,000 ml @ 100 mls/hr Q10H IV Last administered on 03/20/17 17:21; Start 03/17/17 at 19:21 Sodium Chloride (NS Flush) 2 ml UNSCH PRN IV FLUSH FLUSH AFTER USING IV ACCESS ; Start 03/17/17 at 19:30 Sodium Chloride (NS Flush) 2 ml BID IV FLUSH Last administered on 03/21/17 22 :57; Start 03/17/17 at 21:00 Ondansetron HCl (Zofran Inj) 4 mg Q6H PRN IVP NAUSEA OR VOMITING; Start at 19:30 Heparin Sodium (Porcine) (Heparin Inj) 5,000 units Q12H SQ Last administered on 03/21/17 22:56; Start 03/18/17 at 09:00 Acetaminophen (Tylenol) 650 mg Q6H PRN PO FEVER/PAIN SCALE 1 TO 2 Last administered on 11/20/17at 06:05; Start 03/17/17 at 19:30 Oxycodone HCl (Roxicodone) 10 mg Q4H PRN PO PAIN SCALE 6 TO 10 Last administered on 03/21/17 09:05; Start 03/17/17 at 19:30 Oxycodone HCl (Roxicodone) 5 mg Q4H PRN PO PAIN SCALE 3 TO 5 Last administered on 03/21/17 22:55; Start 03/17/17 at 19:30 Senna/Docusate Sodium (Heena-Colace) 1 tab BID PO Last administered on 08:33; Start 03/17/17 at 21:00 Magnesium Hydroxide (Milk Of Magnesia Liq) 30 ml Q12H PRN PO Mild constipation ; Start 03/17/17 at 19:30 Sennosides (Senokot) 17.2 mg Q12H PRN PO Moderate constipation; Start at 19:30 Bisacodyl (Dulcolax Supp) 10 mg DAILY PRN RECTAL SEVERE CONSITIPATION; Start 03/17/17 at 19:30 Lactulose (Lactulose Liq) 30 ml DAILY PRN PO SEVERE CONSITIPATION; Start 03/17 at 19:30 Metoprolol Tartrate (Lopressor Inj) 5 mg ONCE ONCE IV PUSH Last administered on 03/17/17 20:26; Start 03/17/17 at 20:15; Stop 03/17/17 at 20:19; Status DC Vancomycin HCl 1000 mg/Sodium Chloride 250 ml @ 250 mls/hr Q12H IV Last administered on 03/21/17 06:06; Start 03/18/17 at 06:00; Stop 03/21/17 at 09 :47; Status DC Miscellaneous Information SPECIFIC LAB TO BE JC... ONCE ONCE .XX ; Start at 05:45; Stop 03/19/17 at 05:49; Status DC Clonidine (Catapres) 0.1 mg ONCE ONCE PO Last administered on 03/18/17 01:02 ; Start 03/18/17 at 00:45; Stop 03/18/17 at 00:49; Status DC Clonidine (Catapres) 0.1 mg Q6H PRN PO SEE LABEL COMMENTS Last administered on 03/19/17 12:11; Start 03/18/17 at 01:00 Pneumococcal Polyvalent Vaccine (Pneumovax-23 Inj) 25 mcg ONCE ONCE IM Last administered on 03/18/17 11:32; Start 03/18/17 at 09:00; Stop 03/18/17 at 09 :01; Status DC Influenza Virus Vaccine (Flu (Quadrivalent) Vaccine Inj) 0.5 ml ONCE ONCE IM Last administered on 03/18/17 11:30; Start 03/18/17 at 09:00; Stop 03/18/17 at 09:01; Status DC Potassium Chloride (KCl) 40 meq ONCE ONCE PO Last administered on 03/18/17 11:26; Start 03/18/17 at 11:00; Stop 03/18/17 at 11:16; Status DC Carvedilol (Coreg) 3.125 mg BID PO Last administered on 03/19/17 09:00; Start 03/18/17 at 11:30; Stop 03/19/17 at 11:46; Status DC Pantoprazole Sodium (Protonix) 40 mg DAILY PO Last administered on 03/22/17 08:33; Start 03/19/17 at 09:00 Lisinopril (Prinivil) 5 mg DAILY PO Last administered on 03/19/17 08:59; Start 03/18/17 at 12:30; Stop 03/19/17 at 11:46; Status DC Enalaprilat (Vasotec Inj) 1.25 mg Q6H PRN IV PUSH bp>160/90 Last administered on 03/19/17 00:59; Start 03/18/17 at 12:30 Sodium Chloride 1,000 ml @ 999 mls/hr BOLUS ONCE IV Last administered on 15:42; Start 03/18/17 at 14:30; Stop 03/18/17 at 15:30; Status DC Lisinopril (Prinivil) 40 mg DAILY PO Last administered on 03/22/17 08:33; Start 03/20/17 at 09:00 Carvedilol (Coreg) 6.25 mg Q12HR PO Last administered on 03/22/17 08:33; Start 03/19/17 at 21:00 Hydralazine HCl (Apresoline Inj) 20 mg ONCE ONCE IV PUSH Last administered on 03/19/17 12:35; Start 03/19/17 at 11:45; Stop 03/19/17 at 11:59; Status DC Lisinopril (Prinivil) 40 mg DAILY PO ; Start 03/20/17 at 09:00; Status UNV Lactobacillus Acidophilus (Lactinex) 1 tab TID PO Last administered on 08:33; Start 03/19/17 at 13:00 Lisinopril (Prinivil) 40 mg ONCE STAT PO ; Start 03/19/17 at 12:45; Stop at 12:53; Status DC Carvedilol (Coreg) 3.125 mg ONCE STAT PO ; Start 03/19/17 at 12:45; Stop at 12:53; Status DC Miscellaneous Information SPECIFIC LAB TO BE JC... ONCE ONCE .XX Last administered on 03/21/17 05:45; Start 03/21/17 at 05:45; Stop 03/21/17 at 05 :46; Status DC Potassium Chloride (KCl) 40 meq ONCE ONCE PO Last administered on 03/19/17 15:08; Start 03/19/17 at 14:45; Stop 03/19/17 at 14:46; Status DC Dextrose (D50w (Vial) Inj) 50 ml UNSCH PRN IV PUSH HYPOGLYCEMIA - SEE COMMENTS ; Start 03/19/17 at 17:30 Glucagon (Glucagon Inj) 1 mg UNSCH PRN OTHER HYPOGLYCEMIA-SEE COMMENTS; Start 03/19/17 at 17:30 Insulin Aspart (NovoLOG SUPPLEMENTAL SCALE) 1 ACHS SLIDING SCALE SQ Last administered on 03/19/17 21:00; Start 03/19/17 at 17:21 Magnesium Sulfate/ Dextrose 100 ml @ 100 mls/hr ONCE ONCE IV Last administered on 03/19/17 17:56; Start 03/19/17 at 17:45; Stop 03/19/17 at 18 :44; Status DC Iohexol (Omnipaque 350 Inj) 100 ml STK-MED ONCE IVCONTRAST Last administered on 03/19/17 19:00; Start 03/19/17 at 19:00; Stop 03/19/17 at 19:01; Status DC Magnesium Sulfate/ Dextrose 100 ml @ 100 mls/hr ONCE ONCE IV Last administered on 03/20/17 09:39; Start 03/20/17 at 09:00; Stop 03/20/17 at 09 :59; Status DC Potassium Chloride (KCl) 30 meq ONCE ONCE PO Last administered on 03/21/17 08:30; Start 03/21/17 at 08:30; Stop 03/21/17 at 08:36; Status DC Ampicillin Sodium/ Sulbactam Sodium 3 gm/Sodium Chloride 100 ml @ 200 mls/hr Q6H IV Last administered on 03/21/17t 22:00; Start 03/21/17 at 10:00 Lactated Ringer's 1,000 ml @ 30 mls/hr Q24H PRN IV SEE LABEL COMMENTS; Start 03/22/17 at 05:45; Stop 03/25/17 at 05:44 Povidone Iodine (Betadine 5% Antisepsis Kit) 1 applic [employer] PRN EACH NARE SEE LABEL COMMENTS; Start 03/22/17 at 05:45; Stop 03/25/17 at 05:44 Chlorhexidine Gluconate (Chlorhexidine 2% Cloth) 3 pack [employer] PRN TOPICAL SEE LABEL COMMENTS; Start 03/22/17 at 05:45; Stop 03/25/17 at 05:44 Heparin Sodium (Porcine) (Heparin Inj) 10,000 units STK-MED ONCE .ROUTE ; Start 03/22/17 at 07:51; Stop 03/22/17 at 07:52; Status DC Protamine Sulfate (Protamine Sulfate Inj) 50 mg STK-MED ONCE .ROUTE ; Start at 07:51; Stop 03/22/17 at 07:52; Status DC A/P Problem List: (1) Cellulitis of leg, right ICD Code: L03.115 - Cellulitis of right lower limb (2) UTI (urinary tract infection) ICD Code: N39.0 - Urinary tract infection, site not specified (3) HTN (hypertension) ICD Code: I10 - Essential (primary) hypertension (4) Alcohol abuse ICD Code: F10.10 - Alcohol abuse, uncomplicated (5) Tobacco abuse ICD Code: Z72.0 - Tobacco use Status: Chronic Assessment and Plan A/P Right lower extremity cellulitis with sepsis with gangrene-culture growing group a beta Streptococcus, MSSA, . switched to IV Unasyn- ID and wound care following. Peripheral arterial disease-NAVNEET is positive. CTA run off as noted above. vascular surgery f/u appreciated and plan for right femoropopliteal bypass today. right subclavian artery stenosis with steal phenomenon- vascular surgery f/u appreciated and no intervention at this time. Hypertensive urgency-resolved, continue Coreg, lisinopril, clonidine and Vasotec as needed, Diabetes mellitus-status scale insulin with Accu-Cheks Alcohol and tobacco abuse-watch out for withdrawal, CIWA protocol, thiamine, folate and multivitamins. Hypomagnesemia-replaced. Hypokalemia; replaced. hyponatremia; will monitor. right adrenal mass- f/u as outpatient. DVT prophylaxis: Heparin Maxx Banuelos MD Mar 22, 2017 09:30
[2017-03-22] MEDS ORDERED: ceFAZolin 2 GM PREMIX 50 ML ONE (09:59)
[2017-03-22] MEDS ORDERED: BUPIVACAINE/EPINEPHRINE 0.5% PF 30 ML VIAL ONE (09:59)
[2017-03-22] MEDS ORDERED: HEPARIN-NS/PF INJ 500 ML ONE (10:08)
[2017-03-22] MEDS ORDERED: THROMBIN (TOPICAL) 20,000 UNIT SPRAY KIT ONE (10:08)
[2017-03-22] MEDS ORDERED: PROPOFOL 200 MG/20 ML AMP IV ONE (12:00)
[2017-03-22] MEDS ORDERED: ROCURONIUM INJ 50 MG/5 ML SYRINGE IV PUSH ONE (12:00)
[2017-03-22] MEDS ORDERED: ONDANSETRON HCL 4 MG/2 ML VIAL IV ONE (12:00)
[2017-03-22] MEDS ORDERED: LIDOCAINE HCL 1% PF 5 ML SYRINGE OTHER ONE (12:00)
[2017-03-22] MEDS ORDERED: LACTATED RINGER'S 1000 ML INJ 2,000 ML IV ONE (12:00)
[2017-03-22] MEDS ORDERED: NEOSTIGMINE 3 MG/3 ML SYR IV ONE (12:00)
[2017-03-22] MEDS ORDERED: GLYCOPYRROLATE 1 MG/5 ML SYRINGE IV PUSH ONE (12:00)
[2017-03-22] MEDS ORDERED: DO NOT ADM ANY ANTICOAGULANT DRUGS PRN (13:15)
[2017-03-22] MEDS ORDERED: *morphine SULFATE 8 MG/ML PERIprocedure ONLY ONE ×2 (13:33→13:49)
[2017-03-22] MEDS: SODIUM CHLOR 0.9% 1000 ML INJ 1,000 ML IV SCH ×3 (14:28→20:18)
--- NOTE | 2017-03-22 14:29 | PD.CAR.PN ---
CVT Progress Note Subjective/Hospital Course: Patient seen full consult dictated Thanks J 03/20/17 Patient with severe peripheral vascular disease and ulcers on the right leg encompassing most of the calf CTA with runoff pending We'll see what that shows and then decide if there is anything we can do for this patient as far as revascularization and chances of improvement of healing In the meantime patient needs wound care consult and adequate wound care to her calves Patient [place] and this may be an issue with disposition US carotids - retrograde flow in R vertebral. This is consistent with significantly lower SBP in R arm and subclavian steel on the R. Patient however asymptomatic, so would leave it alone 03/21/17 Patient with severe peripheral vascular disease and nonhealing ulcers of the legs as well as presumptive left subclavian stenosis At this point the leg issue has to be addressed in face of acute ulcers I reviewed CTA with a runoff Right leg the vasculature inflow is intact and then there is a occlusion of superficial femoral artery in addition to multilevel stenoses. Popliteal artery looks okay and anterior tibial artery is the dominant vessel with a runoff Left leg again has several areas of stenosis of SFA and then a very tight stenosis of trifurcation. Considering that the right side is symptomatic we'll proceed with right femoropopliteal bypass and see how patient does I am worried about doing in the endovascular interventions here because patient is noncompliant with either follow-up or medications which makes endovascular results quite dubious Right femoropopliteal bypass tomorrow 03/22/17 Patient status post right femoropopliteal bypass with endarterectomy Patient's excellent flow distally with warm and well-perfused foot I'll be leaving town tomorrow and Dr. Magallon will cover for any emergency Objective: Vital Signs Date Time Temp Pulse Resp B/P (MAP) Pulse Ox O2 Delivery O2 Flow Rate FiO2 03/22/17 14:18 98.1 95 18 149/71 (97) 96 03/22/17 14:00 97.4 72 20 160/77 (104) 100 Room Air 03/22/17 13:45 74 20 160/77 (104) 100 Room Air 03/22/17 13:30 97 20 183/85 (117) 97 03/22/17 13:13 97.4 76 20 162/75 (104) 100 Nasal Cannula 2 03/22/17 09:55 98.0 85 18 160/77 (104) 95 03/22/17 08:37 99.6 97 18 153/85 (107) 93 03/22/17 06:00 74 03/22/17 05:00 76 03/22/17 04:00 100 03/22/17 03:30 99.0 79 16 150/68 (95) 94 03/22/17 03:00 82 03/22/17 02:00 80 03/22/17 01:00 84 03/22/17 00:00 84 03/22/17 00:00 14 03/21/17 23:30 82 14 157/73 (101) 97 03/21/17 23:00 86 03/21/17 22:00 96 03/21/17 21:00 96 03/21/17 20:00 99.5 93 16 123/82 (96) 97 03/21/17 20:00 112 03/21/17 19:00 94 03/21/17 18:00 88 03/21/17 17:01 78 03/21/17 16:00 74 03/21/17 15:30 97.9 86 18 103/73 (83) 94 03/21/17 15:00 74 Result Diagram: 03/19/17 0456 03/21/17 0532 Dallas Monaco MD Mar 22, 2017 14:29
[2017-03-22] MEDS: AMPICILLIN-SULBACTAM INJ 3 GM in SODIUM CHLORIDE 0.9% INJ 100 ML IV SCH ×2 (14:40→21:00)
[2017-03-22] MEDS: cloNIDine HCL 0.1 MG TAB PO PRN (17:54)
--- NOTE | 2017-03-22 17:54 | MP ---
cc: NORBERTO VALLADARES MD DATE OF SURGERY 03/22/17 PREOPERATIVE DIAGNOSIS Ischemia of the right leg, ulcers of the right leg, SFA occlusion, severe peripheral vascular disease POSTOPERATIVE DIAGNOSIS Ischemia of the right leg, ulcers of the right leg, SFA occlusion, severe peripheral vascular disease PROCEDURES External iliac endarterectomy, femoral-popliteal bypass and popliteal endarterectomy. SURGEON Carter Valldaares MD ANESTHESIA General. ESTIMATED BLOOD LOSS 100 mL. PROCEDURE IN DETAIL The patient prepped and draped usual fashion. First right groin incision made in oblique fashion, deepened down and common femoral, deep femoral and superficial femoral arteries are isolated. These are very calcified. Above it, external iliac appears to be quite soft and patent. Vessel loops were placed around each vessel respectively. Now the popliteal space is opened through a median incision and popliteal artery isolated. Popliteal artery is very hard and this correlates to the CT findings, but in the very distal portion just above the trifurcation it is nice and soft. Again vessel loops were placed around the vessel. The Lea Wick tunneler is now used to tunnel 8 mm ringed Joseph-Shashi grafts from proximal to distal. Once placed, the patient is given 5000 units of heparin. First distal anastomosis attended. Popliteal artery is clamped with profunda clamps and opened longitudinally with Turcios scissors. In the distal portion, it is very soft and nice and patent. Proximal portion is about 90% occluded. The Piseco dissector is now used to dissect and endarterectomize area more proximal. This allows for a nice anastomotic zone. The graft is now cut under an oblique angle with 11 blade and sewn in with 5-0 Prolene running stitch. Once this was completed, the clamps were removed. Back flow into the graft is brisk and then the graft is flushed with heparinized saline and clamped while the vessel is allowed to remain open. The proximal area is now attended. Common femoral artery and distal external iliac artery are chosen for anastomosis. Vessel loops are applied proximally. A Satinsky clamp is placed distally profunda and then vessels opened longitudinally with an 11 blade and Turcios scissors. Again graft is now cut to size under oblique angle with 11 blade and then sewn onto the vessel with a running 5-0 Prolene stitch on a ___ one needle creating nice anastomosis. Blood flow is now reestablished. Doppler flow is checked. The patient has a brisk Doppler flow and actually palpable pulse in distal popliteal artery. It should be noted that earlier in the procedure distal popliteal artery and trifurcation was entered with the dilator and it passed easily distally and there was a good back bleeding. Once was this was accomplished, meticulous hemostasis was obtained. A seven flat DARIN is laid in the groin. Incisions are closed with 0 Vicryl and 4-0 subcuticular Monocryl and dressing applied. The patient taken out of the operative room in stable condition. At the end of the procedure, the patient has excellent distal pulses and foot is warm. Norberto VILLALOBOS/ /2:29 PM /5:47 PM
[2017-03-23] VITALS (30 sets, daily range): BP systolic 104–209; BP diastolic 53–93; PULSE 72–96; RESP 16–22; TEMP 98.4–99.6; O2SAT 95–100
[2017-03-23] MEDS: ACETAMINOPHEN 325 MG TAB PO PRN ×3 (00:50→21:18)
[2017-03-23] MEDS: AMPICILLIN-SULBACTAM INJ 3 GM in SODIUM CHLORIDE 0.9% INJ 100 ML IV SCH ×4 (03:00→21:00)
[2017-03-23 05:54] LABS: AUTOMATED NEUTROPHIL # 2.9 TH/MM3 (1.8-7.7); BASOPHIL % 0.4 % (0.0-2.0); EOSINOPHIL # 0.1 TH/MM3 (0-0.4); EOSINOPHIL % 1.7 % (0.0-4.0); HEMATOCRIT 22.9 % (35.0-46.0); HEMO FLAGS DIFF FINAL; LYMPH % 24.5 % (9.0-44.0); LYMPHOCYTE # 1.2 TH/MM3 (1.0-4.8); MEAN CELL VOLUME 88.8 FL (80.0-100.0); MEAN CORPUSCULAR HGB CONC 33.7 % (32.0-36.0); MONO % 14.7 % (0.0-8.0); NEUT % 58.7 % (16.0-70.0); PLATELET COUNT 149 TH/MM3 (150-450); RED BLOOD COUNT 2.58 MIL/MM3 (4.00-5.30); RED CELL DISTRIBUTION WIDTH 20.4 % (11.6-17.2); WHITE BLOOD COUNT 4.9 TH/MM3 (4.0-11.0)
[2017-03-23 06:24] LABS: BICARBONATE 25.2 MEQ/L (21.0-32.0); POTASSIUM 3.2 MEQ/L (3.5-5.1)
[2017-03-23] MEDS: LOW DOSE INSULIN NOVOLOG SUPPLEMENTAL SCALE SQ SCH ×4 (08:00→21:00)
[2017-03-23] MEDS: SODIUM CHLOR 0.9% 1000 ML INJ 1,000 ML IV SCH ×2 (08:55→15:11)
[2017-03-23] MEDS: DOCUSATE SODIUM 50 MG/SENNA 8.6 MG TAB PO SCH ×2 (08:59→21:00)
[2017-03-23] MEDS: LACTOBACILLUS ACIDOPHILUS TAB PO SCH ×3 (08:59→17:32)
[2017-03-23] MEDS: THIAMINE HCL 100 MG TAB PO SCH (09:00)
[2017-03-23] MEDS: LISINOPRIL 20 MG TAB PO SCH (09:00)
[2017-03-23] MEDS: CARVEDILOL 6.25 MG TAB PO SCH ×2 (09:01→21:18)
[2017-03-23] MEDS: PANTOPRAZOLE SOD 40 MG DELAYED RELEASE TAB PO SCH (09:01)
[2017-03-23] MEDS: SODIUM CHLORIDE 0.9% FLUSH 10 ML FLUSH IV FLUSH SCH ×2 (09:01→21:00)
[2017-03-23] MEDS: HEPARIN SODIUM - SQ 10,000 UNITS/ML VIAL SQ SCH ×2 (09:02→21:10)
--- NOTE | 2017-03-23 10:38 | HHI.PR ---
Subjective Remarks in no acute distress. pain is controlled. no dizziness, chest pain or sob. afebrile. Objective Vitals Vital Signs Date Time Temp Pulse Resp B/P (MAP) Pulse Ox O2 Delivery O2 Flow Rate FiO2 03/23/17 08:36 99.2 78 16 135/68 (90) 97 03/23/17 06:00 76 03/23/17 05:00 82 03/23/17 04:00 80 03/23/17 03:30 99.1 83 16 118/57 (77) 95 03/23/17 03:00 88 03/23/17 02:36 14 03/23/17 02:00 96 03/23/17 01:00 80 03/23/17 00:00 88 22 179/76 (110) 95 03/23/17 00:00 82 03/22/17 23:45 16 03/22/17 23:00 82 03/22/17 22:00 76 03/22/17 21:00 76 03/22/17 20:00 70 16 146/74 (98) 96 03/22/17 20:00 86 03/22/17 19:00 64 03/22/17 18:00 80 03/22/17 17:36 98.6 89 18 186/89 (121) 95 03/22/17 17:00 62 03/22/17 16:00 68 03/22/17 14:18 98.1 95 18 149/71 (97) 96 03/22/17 14:00 97.4 72 20 160/77 (104) 100 Room Air 03/22/17 13:45 74 20 160/77 (104) 100 Room Air 03/22/17 13:30 97 20 183/85 (117) 97 03/22/17 13:13 97.4 76 20 162/75 (104) 100 Nasal Cannula 2 I/O 03/22/17 03/22/17 03/22/17 03/23/17 03/23/17 03/23/17 07:00 15:00 23:00 07:00 15:00 23:00 Intake Total 1500 ml 960 ml 840 ml Output Total 300 ml 1000 ml 900 ml 1225 ml Balance -300 ml 500 ml 60 ml -385 ml Intake Oral 580 ml 840 ml IV Total 380 ml Other 1500 ml Output Urine Total 300 ml 900 ml 750 ml 1200 ml Drainage Total 150 ml 25 ml Estimated Blood Loss 100 ml # Voids 1 # Bowel Movements 2 1 Result Diagram: 03/23/17 0503 03/23/17 0503 Imaging Last Impressions Carotid Artery Ultrasound 03/19/17 0000 Signed Impressions: Service Date/Time: Sunday, March 19, 2017 17:35 - CONCLUSION: 1. Mild patchy atherosclerosis of both carotids. No hemodynamically significant narrowing. 2. Retrograde flow within the right vertebral artery suggesting a right subclavian artery stenosis with steal phenomenon. Trevor Young MD Aorta w/Runoff CTA 03/19/17 0000 Signed Impressions: Service Date/Time: Sunday, March 19, 2017 18:47 - CONCLUSION: 1. No significant aortic stenosis or iliac inflow disease. 2. Extensive bilateral SFA disease and moderate bilateral above-knee popliteal artery disease, as above. Patient would likely benefit from outflow intervention. 3. Bulky plaque at the origin of the anterior tibial arteries bilaterally and right tibioperoneal trunk. Otherwise, three-vessel runoff to the foot. 4. 1.6 cm indeterminate right adrenal mass. This can be further evaluated with adrenal mass protocol CT or MRI exam on an outpatient basis as clinically warranted. Gautam Alba MD Lower Extremity Ultrasound 03/18/17 0000 Signed Impressions: Service Date/Time: Saturday, March 18, 2017 12:49 - CONCLUSION: Negative exam with no evidence of abscess. Gonsalo Burris MD Tibia/Fibula X-Ray 03/17/17 0000 Signed Impressions: Service Date/Time: March 17:36 - CONCLUSION: 1. No acute bony abnormality identified. Jj Rolle MD Objective Remarks GENERAL: This is a well-nourished, well-developed patient, in no apparent distress. CARDIOVASCULAR: Regular rate and regular rhythm without murmurs, gallops, or rubs. RESPIRATORY: Clear to auscultation. Breath sounds equal bilaterally. No wheezes , rales, or rhonchi. GASTROINTESTINAL: Abdomen soft, non-tender, nondistended. Normal, active bowel sounds- drain in place in right groin. MUSCULOSKELETAL: right leg covered with clean dressing. NEURO: Alert & Oriented x4 to person, place, time, situation. Moves all ext x4 Procedures External iliac endarterectomy, femoral-popliteal bypass and popliteal endarterectomy. Medications and IVs Current Medications Vancomycin HCl 1000 mg/Sodium Chloride 250 ml @ 250 mls/hr ONCE ONCE IV Last administered on 03/17/17 16:15; Start 03/17/17 at 16:15; Stop 03/17/17 at 17 :14; Status DC Morphine Sulfate (Morphine Inj) 4 mg ONCE ONCE IV PUSH Last administered on 17:21; Start 03/17/17 at 16:15; Stop 03/17/17 at 16:16; Status DC Ondansetron HCl (Zofran Inj) 4 mg ONCE ONCE IV PUSH Last administered on 03/17 16:15; Start 03/17/17 at 16:15; Stop 03/17/17 at 16:16; Status DC Piperacillin Sod/ Tazobactam Sod 100 ml @ 200 mls/hr ONCE ONCE IV Last administered on 03/17/17 19:09; Start 03/17/17 at 17:30; Stop 03/17/17 at 17 :59; Status DC Sodium Chloride 1,000 ml @ 1,000 mls/hr Q1H ONCE IV Last administered on 03/17 17:20; Start 03/17/17 at 17:20; Stop 03/17/17 at 18:19; Status DC Sodium Chloride 1,000 ml @ 1,000 mls/hr Q1H ONCE IV Last administered on 03/17 17:20; Start 03/17/17 at 17:20; Stop 03/17/17 at 18:19; Status DC Sodium Chloride 100 ml @ 1,000 mls/hr Q6M ONCE IV Last administered on 19:56; Start 03/17/17 at 17:20; Stop 03/17/17 at 17:25; Status DC Pharmacy Profile Note 0 ml @ 0 mls/hr UNSCH OTHER ; Start 03/17/17 at 19:30; Stop 03/21/17 at 09:47; Status DC Folic Acid (Folate) 1 mg DAILY PO Last administered on 03/22/17 08:33; Start 03/18/17 at 09:00; Stop 03/23/17 at 08:59; Status DC Thiamine HCl (Vitamin B1) 100 mg DAILY PO Last administered on 03/23/17 09:00 ; Start 03/18/17 at 09:00 Multivitamins/ Minerals Therapeutic (Theragran M Tab) 1 tab DAILY PO Last administered on 03/22/17 08:33; Start 03/18/17 at 09:00; Stop 03/23/17 at 08 :59; Status DC Flumazenil (Romazicon Inj) 0.2 mg Q1M PRN IV PUSH SEE LABEL COMMENTS; Start at 19:30 Lorazepam (Ativan) 1 mg Q4H PRN PO CIWA 8 - 10; Start 03/17/17 at 19:30 Lorazepam (Ativan Inj) 1 mg Q4H PRN IV PUSH CIWA 8 - 10; Start 03/17/17 at 19: 30 Lorazepam (Ativan) 2 mg Q2H PRN PO CIWA 11-14; Start 03/17/17 at 19:30 Lorazepam (Ativan Inj) 2 mg Q2H PRN IV PUSH CIWA 11-14; Start 03/17/17 at 19: 30 Lorazepam (Ativan Inj) 2 mg Q1H PRN IV PUSH CIWA 15-20; Start 03/17/17 at 19: 30 Lorazepam (Ativan Inj) 2 mg Q15M PRN IV PUSH CIWA > 20; Start 03/17/17 at 19: 30 Haloperidol Lactate (Haldol Inj) 2 mg Q15M PRN IM SEE LABEL COMMENTS; Start at 19:30 Piperacillin Sod/ Tazobactam Sod 100 ml @ 200 mls/hr Q6H IV Last administered on 03/21/17 05:26; Start 03/18/17 at 00:00; Stop 03/21/17 at 09:47; Status DC Sodium Chloride 1,000 ml @ 100 mls/hr Q10H IV Last administered on 03/23/17 08:55; Start 03/17/17 at 19:21 Sodium Chloride (NS Flush) 2 ml UNSCH PRN IV FLUSH FLUSH AFTER USING IV ACCESS ; Start 03/17/17 at 19:30 Sodium Chloride (NS Flush) 2 ml BID IV FLUSH Last administered on 03/23/17 09 :01; Start 03/17/17 at 21:00 Ondansetron HCl (Zofran Inj) 4 mg Q6H PRN IVP NAUSEA OR VOMITING; Start at 19:30 Heparin Sodium (Porcine) (Heparin Inj) 5,000 units Q12H SQ Last administered on 03/23/17 09:02; Start 03/18/17 at 09:00 Acetaminophen (Tylenol) 650 mg Q6H PRN PO FEVER/PAIN SCALE 1 TO 2 Last administered on 03/23/17 00:50; Start 03/17/17 at 19:30 Oxycodone HCl (Roxicodone) 10 mg Q4H PRN PO PAIN SCALE 6 TO 10 Last administered on 03/23/17 09:02; Start 03/17/17 at 19:30 Oxycodone HCl (Roxicodone) 5 mg Q4H PRN PO PAIN SCALE 3 TO 5 Last administered on 03/21/17 22:55; Start 03/17/17 at 19:30 Senna/Docusate Sodium (Heena-Colace) 1 tab BID PO Last administered on 08:59; Start 03/17/17 at 21:00 Magnesium Hydroxide (Milk Of Magnesia Liq) 30 ml Q12H PRN PO Mild constipation ; Start 03/17/17 at 19:30 Sennosides (Senokot) 17.2 mg Q12H PRN PO Moderate constipation; Start at 19:30 Bisacodyl (Dulcolax Supp) 10 mg DAILY PRN RECTAL SEVERE CONSITIPATION; Start 03/17/17 at 19:30 Lactulose (Lactulose Liq) 30 ml DAILY PRN PO SEVERE CONSITIPATION; Start 03/17 at 19:30 Metoprolol Tartrate (Lopressor Inj) 5 mg ONCE ONCE IV PUSH Last administered on 03/17/17 20:26; Start 03/17/17 at 20:15; Stop 03/17/17 at 20:19; Status DC Vancomycin HCl 1000 mg/Sodium Chloride 250 ml @ 250 mls/hr Q12H IV Last administered on 03/21/17 06:06; Start 03/18/17 at 06:00; Stop 03/21/17 at 09 :47; Status DC Miscellaneous Information SPECIFIC LAB TO BE ... ONCE ONCE .XX ; Start at 05:45; Stop 03/19/17 at 05:49; Status DC Clonidine (Catapres) 0.1 mg ONCE ONCE PO Last administered on 03/18/17 01:02 ; Start 03/18/17 at 00:45; Stop 03/18/17 at 00:49; Status DC Clonidine (Catapres) 0.1 mg Q6H PRN PO SEE LABEL COMMENTS Last administered on 03/22/17 17:54; Start 03/18/17 at 01:00 Pneumococcal Polyvalent Vaccine (Pneumovax-23 Inj) 25 mcg ONCE ONCE IM Last administered on 03/18/17 11:32; Start 03/18/17 at 09:00; Stop 03/18/17 at 09 :01; Status DC Influenza Virus Vaccine (Flu (Quadrivalent) Vaccine Inj) 0.5 ml ONCE ONCE IM Last administered on 03/18/17 11:30; Start 03/18/17 at 09:00; Stop 03/18/17 at 09:01; Status DC Potassium Chloride (KCl) 40 meq ONCE ONCE PO Last administered on 03/18/17 11:26; Start 03/18/17 at 11:00; Stop 03/18/17 at 11:16; Status DC Carvedilol (Coreg) 3.125 mg BID PO Last administered on 03/19/17 09:00; Start 03/18/17 at 11:30; Stop 03/19/17 at 11:46; Status DC Pantoprazole Sodium (Protonix) 40 mg DAILY PO Last administered on 03/23/17 09:01; Start 03/19/17 at 09:00 Lisinopril (Prinivil) 5 mg DAILY PO Last administered on 03/19/17 08:59; Start 03/18/17 at 12:30; Stop 03/19/17 at 11:46; Status DC Enalaprilat (Vasotec Inj) 1.25 mg Q6H PRN IV PUSH bp>160/90 Last administered on 03/19/17 00:59; Start 03/18/17 at 12:30 Sodium Chloride 1,000 ml @ 999 mls/hr BOLUS ONCE IV Last administered on 15:42; Start 03/18/17 at 14:30; Stop 03/18/17 at 15:30; Status DC Lisinopril (Prinivil) 40 mg DAILY PO Last administered on 03/23/17 09:00; Start 03/20/17 at 09:00 Carvedilol (Coreg) 6.25 mg Q12HR PO Last administered on 03/23/17 09:01; Start 03/19/17 at 21:00 Hydralazine HCl (Apresoline Inj) 20 mg ONCE ONCE IV PUSH Last administered on 03/19/17 12:35; Start 03/19/17 at 11:45; Stop 03/19/17 at 11:59; Status DC Lisinopril (Prinivil) 40 mg DAILY PO ; Start 03/20/17 at 09:00; Status UNV Lactobacillus Acidophilus (Lactinex) 1 tab TID PO Last administered on 08:59; Start 03/19/17 at 13:00 Lisinopril (Prinivil) 40 mg ONCE STAT PO ; Start 03/19/17 at 12:45; Stop at 12:53; Status DC Carvedilol (Coreg) 3.125 mg ONCE STAT PO ; Start 03/19/17 at 12:45; Stop at 12:53; Status DC Miscellaneous Information SPECIFIC LAB TO BE JC... ONCE ONCE .XX Last administered on 03/21/17 05:45; Start 03/21/17 at 05:45; Stop 03/21/17 at 05 :46; Status DC Potassium Chloride (KCl) 40 meq ONCE ONCE PO Last administered on 03/19/17 15:08; Start 03/19/17 at 14:45; Stop 03/19/17 at 14:46; Status DC Dextrose (D50w (Vial) Inj) 50 ml UNSCH PRN IV PUSH HYPOGLYCEMIA - SEE COMMENTS ; Start 03/19/17 at 17:30 Glucagon (Glucagon Inj) 1 mg UNSCH PRN OTHER HYPOGLYCEMIA-SEE COMMENTS; Start 03/19/17 at 17:30 Insulin Aspart (NovoLOG SUPPLEMENTAL SCALE) 1 ACHS SLIDING SCALE SQ Last administered on 03/19/17 21:00; Start 03/19/17 at 17:21 Magnesium Sulfate/ Dextrose 100 ml @ 100 mls/hr ONCE ONCE IV Last administered on 03/19/17 17:56; Start 03/19/17 at 17:45; Stop 03/19/17 at 18 :44; Status DC Iohexol (Omnipaque 350 Inj) 100 ml STK-MED ONCE IVCONTRAST Last administered on 03/19/17 19:00; Start 03/19/17 at 19:00; Stop 03/19/17 at 19:01; Status DC Magnesium Sulfate/ Dextrose 100 ml @ 100 mls/hr ONCE ONCE IV Last administered on 03/20/17 09:39; Start 03/20/17 at 09:00; Stop 03/20/17 at 09 :59; Status DC Potassium Chloride (KCl) 30 meq ONCE ONCE PO Last administered on 03/21/17 08:30; Start 03/21/17 at 08:30; Stop 03/21/17 at 08:36; Status DC Ampicillin Sodium/ Sulbactam Sodium 3 gm/Sodium Chloride 100 ml @ 200 mls/hr Q6H IV Last administered on 03/21/17 22:00; Start 03/21/17 at 10:00; Stop 03/22/17 at 14:33; Status DC Lactated Ringer's 1,000 ml @ 30 mls/hr Q24H PRN IV SEE LABEL COMMENTS; Start 03/22/17 at 05:45; Stop 03/25/17 at 05:44 Povidone Iodine (Betadine 5% Antisepsis Kit) 1 applic [employer] SALES REPRESENTATIVE PRN EACH NARE SEE LABEL COMMENTS; Start 03/22/17 at 05:45; Stop 03/25/17 at 05:44 Chlorhexidine Gluconate (Chlorhexidine 2% Cloth) 3 pack [employer] SALES REPRESENTATIVE PRN TOPICAL SEE LABEL COMMENTS; Start 03/22/17 at 05:45; Stop 03/25/17 at 05:44 Heparin Sodium (Porcine) (Heparin Inj) 10,000 units STK-MED ONCE .ROUTE ; Start 03/22/17 at 07:51; Stop 03/22/17 at 07:52; Status DC Protamine Sulfate (Protamine Sulfate Inj) 50 mg STK-MED ONCE .ROUTE ; Start at 07:51; Stop 03/22/17 at 07:52; Status DC Cefazolin Sodium/ Dextrose 50 ml @ As Directed STK-MED ONCE .ROUTE Last administered on 03/22/17 11:18; Start 03/22/17 at 09:59; Stop 03/22/17 at 10 :00; Status DC Bupivacaine HCl/ Epinephrine Bitart (Sensorcaine-Epinephrine Pf 0.5% Inj) 30 ml STK-MED ONCE .ROUTE ; Start 03/22/17 at 09:59; Stop 03/22/17 at 10:00; Status DC Thrombin (Thrombin Top Cable) 20,000 units STK-MED ONCE .ROUTE ; Start at 10:08; Stop 03/22/17 at 10:09; Status DC Heparin Sodium/ Sodium Chloride 500 ml @ As Directed STK-MED ONCE .ROUTE Last administered on 03/22/17 10:08; Start 03/22/17 at 10:08; Stop 03/22/17 at 10 :09; Status DC Morphine Sulfate (*morphine INJ PERIprocedure ONLY) 8 mg STK-MED ONCE .ROUTE Last administered on 03/22/17 13:33; Start 03/22/17 at 13:33; Stop 03/22/17 at 13:34; Status DC Morphine Sulfate (*morphine INJ PERIprocedure ONLY) 8 mg STK-MED ONCE .ROUTE Last administered on 03/22/17 13:49; Start 03/22/17 at 13:49; Stop 03/22/17 at 13:50; Status DC Miscellaneous Information ALL NURSING DEPARTME... UNSCH PRN .XX SEE LABEL COMMENTS; Start 03/22/17 at 13:15; Stop 03/23/17 at 13:14 Ampicillin Sodium/ Sulbactam Sodium 3 gm/Sodium Chloride 100 ml @ 200 mls/hr Q6H IV Last administered on 03/23/17 08:56; Start 03/22/17 at 15:00 A/P Problem List: (1) Cellulitis of leg, right ICD Code: L03.115 - Cellulitis of right lower limb (2) UTI (urinary tract infection) ICD Code: N39.0 - Urinary tract infection, site not specified (3) HTN (hypertension) ICD Code: I10 - Essential (primary) hypertension (4) Alcohol abuse ICD Code: F10.10 - Alcohol abuse, uncomplicated (5) Tobacco abuse ICD Code: Z72.0 - Tobacco use Status: Chronic Assessment and Plan A/P Right lower extremity cellulitis with sepsis with gangrene-culture growing group a beta Streptococcus, MSSA, . switched to IV Unasyn- ID and wound care following. Peripheral arterial disease- s/p External iliac endarterectomy, femoral-popliteal bypass and popliteal endarterectomy. ( 03/22/17) management per vascular surgery. anemia- likely acute on [id number]; will monitor H/H for now; will transfuse if Hb drops to < 7. right subclavian artery stenosis with steal phenomenon- vascular surgery f/u appreciated and no intervention at this time. Hypertensive urgency-resolved, continue Coreg, lisinopril, clonidine and Vasotec as needed, Diabetes mellitus-status scale insulin with Accu-Cheks Alcohol and tobacco abuse-watch out for withdrawal, CIWA protocol, thiamine, folate and multivitamins. Hypomagnesemia-replaced. Hypokalemia; replaced. hyponatremia;improved- will monitor. right adrenal mass- f/u as outpatient. DVT prophylaxis: Heparin Maxx Banuelos MD Mar 23, 2017 10:38
[2017-03-23] MEDS ORDERED: POTASSIUM CHLORIDE 10 MEQ CONTROLLED RELEASE TAB PO ONE (11:00)
--- NOTE | 2017-03-23 15:54 | HHI.IDPN ---
Subjective Subjective Remarks Patient is a 56-year-old female, presented to the hospital complaining of painful wounds on her right leg. Patient states she's had the wounds for about several months. She thinks she got it from insect bites. She had initially been going to the wound care center here at [place] but she is not compliant as far as follow-up. She is getting more drainage from her leg wounds and was getting some redness. She presented to the hospital for further evaluation and treatment. Patient has had low-grade temps since admission. Today however is her temperatures up to 102. Her WBC is normal. Patient is being evaluated by vascular surgery. Wound cultures preliminary are growing Proteus, staph aureus and strep. Infectious disease consultation has been requested to evaluate the patient. Notes reviewed Temps ok Had surgical revascularization done yesterday Wound care team following Antibiotics Current Medications Unasyn Medications (Trade) Dose Ordered Sig/Ruma Route Start Time Stop Time Status Last Admin (Vitamin B1) 100 mg DAILY PO 03/18/17 09:00 03/23/17 09:00 (Romazicon Inj) 0.2 mg Q1M PRN IV PUSH 03/17/17 19:30 (Ativan) 1 mg Q4H PRN PO 03/17/17 19:30 (Ativan Inj) 1 mg Q4H PRN IV PUSH 03/17/17 19:30 (Ativan) 2 mg Q2H PRN PO 03/17/17 19:30 (Ativan Inj) 2 mg Q2H PRN IV PUSH 03/17/17 19:30 (Ativan Inj) 2 mg Q1H PRN IV PUSH 03/17/17 19:30 (Ativan Inj) 2 mg Q15M PRN IV PUSH 03/17/17 19:30 (Haldol Inj) 2 mg Q15M PRN IM 03/17/17 19:30 Sodium Chloride 1,000 ml @ 100 mls/hr Q10H IV 03/17/17 19:21 03/23/17 08:55 (NS Flush) 2 ml UNSCH PRN IV FLUSH 03/17/17 19:30 (NS Flush) 2 ml BID IV FLUSH 03/17/17 21:00 03/23/17 09:01 (Zofran Inj) 4 mg Q6H PRN IVP 03/17/17 19:30 (Heparin Inj) 5,000 units Q12H SQ 03/18/17 09:00 03/23/17 09:02 (Tylenol) 650 mg Q6H PRN PO 03/17/17 19:30 03/23/17 12:21 (Roxicodone) 10 mg Q4H PRN PO 03/17/17 19:30 03/23/17 09:02 (Roxicodone) 5 mg Q4H PRN PO 03/17/17 19:30 03/21/17 22:55 (Heena-Colace) 1 tab BID PO 03/17/17 21:00 03/23/17 08:59 (Milk Of Magnesia Liq) 30 ml Q12H PRN PO 03/17/17 19:30 (Senokot) 17.2 mg Q12H PRN PO 03/17/17 19:30 (Dulcolax Supp) 10 mg DAILY PRN RECTAL 03/17/17 19:30 (Lactulose Liq) 30 ml DAILY PRN PO 03/17/17 19:30 (Catapres) 0.1 mg Q6H PRN PO 03/18/17 01:00 03/22/17 17:54 (Protonix) 40 mg DAILY PO 03/19/17 09:00 03/23/17 09:01 (Vasotec Inj) 1.25 mg Q6H PRN IV PUSH 03/18/17 12:30 03/19/17 00:59 (Prinivil) 40 mg DAILY PO 03/20/17 09:00 03/23/17 09:00 (Coreg) 6.25 mg Q12HR PO 03/19/17 21:00 03/23/17 09:01 (Lactinex) 1 tab TID PO 03/19/17 13:00 03/23/17 12:21 (D50w (Vial) Inj) 50 ml UNSCH PRN IV PUSH 03/19/17 17:30 (Glucagon Inj) 1 mg UNSCH PRN OTHER 03/19/17 17:30 (NovoLOG SUPPLEMENTAL SCALE) 1 ACHS SLIDING SCALE SQ 03/19/17 17:21 03/19/17 21:00 Lactated Ringer's 1,000 ml @ 30 mls/hr Q24H PRN IV 03/22/17 05:45 03/25/17 05:44 (Betadine 5% Antisepsis Kit) 1 applic SENIOR MARKETING ENGINEER PRN EACH NARE 03/22/17 05:45 03/25/17 05:44 (Chlorhexidine 2% Cloth) 3 pack SENIOR MARKETING ENGINEER PRN TOPICAL 03/22/17 05:45 03/25/17 05:44 Ampicillin Sodium/ Sulbactam Sodium 3 gm/Sodium Chloride 100 ml @ 200 mls/hr Q6H IV 03/22/17 15:00 03/23/17 15:26 Lines PIV Past Medical History HTN Alcohol Abuse and Tobacco Abuse Allergies: Coded Allergies: lactose (Verified Adverse Reaction, Severe, Diarrhea, 03/17/17) orange juice (Verified Adverse Reaction, Severe, Cramping, 03/17/17) Objective . Vital Signs Date Time Temp Pulse Resp B/P (MAP) Pulse Ox O2 Delivery O2 Flow Rate FiO2 03/23/17 15:39 98.7 80 16 182/77 (112) 100 03/23/17 14:22 79 03/23/17 13:00 81 03/23/17 12:17 99.6 78 16 158/70 (99) 96 03/23/17 12:00 76 03/23/17 11:00 79 03/23/17 10:00 88 03/23/17 09:00 78 03/23/17 08:36 99.2 78 16 135/68 (90) 97 03/23/17 08:00 80 03/23/17 07:00 77 03/23/17 06:00 76 03/23/17 05:00 82 03/23/17 04:00 80 03/23/17 03:30 99.1 83 16 118/57 (77) 95 03/23/17 03:00 88 03/23/17 02:36 14 03/23/17 02:00 96 03/23/17 01:00 80 03/23/17 00:00 88 22 179/76 (110) 95 03/23/17 00:00 82 03/22/17 23:45 16 03/22/17 23:00 82 03/22/17 22:00 76 03/22/17 21:00 76 03/22/17 20:00 70 16 146/74 (98) 96 03/22/17 20:00 86 03/22/17 19:00 64 03/22/17 18:00 80 03/22/17 17:36 98.6 89 18 186/89 (121) 95 03/22/17 17:00 62 03/22/17 16:00 68 . Laboratory Tests Test 03/23/17 05:03 White Blood Count 4.9 TH/MM3 Red Blood Count 2.58 MIL/MM3 Hemoglobin 7.7 GM/DL Hematocrit 22.9 % Mean Corpuscular Volume 88.8 FL Mean Corpuscular Hemoglobin 30.0 PG Mean Corpuscular Hemoglobin Concent 33.7 % Red Cell Distribution Width 20.4 % Platelet Count 149 TH/MM3 Mean Platelet Volume 7.0 FL Neutrophils (%) (Auto) 58.7 % Lymphocytes (%) (Auto) 24.5 % Monocytes (%) (Auto) 14.7 % Eosinophils (%) (Auto) 1.7 % Basophils (%) (Auto) 0.4 % Neutrophils # (Auto) 2.9 TH/MM3 Lymphocytes # (Auto) 1.2 TH/MM3 Monocytes # (Auto) 0.7 TH/MM3 Eosinophils # (Auto) 0.1 TH/MM3 Basophils # (Auto) 0.0 TH/MM3 CBC Comment DIFF FINAL Differential Comment Laboratory Tests Test 03/23/17 05:03 Blood Urea Nitrogen 6 MG/DL Creatinine 0.58 MG/DL Random Glucose 89 MG/DL Calcium Level 7.9 MG/DL Sodium Level 133 MEQ/L Potassium Level 3.2 MEQ/L Chloride Level 100 MEQ/L Carbon Dioxide Level 25.2 MEQ/L Anion Gap 8 MEQ/L Estimat Glomerular Filtration Rate 131 ML/MIN Physical Exam GENERAL: Patient is a thin, well-developed female, awake and alert, not in respiratory distress. SKIN: Warm and dry. No generalized rash, no ecchymoses and no evidence of embolic lesions. HEAD: Atraumatic. Normocephalic. No temporal wasting, or tenderness. EYES: [place] conjunctiva. No petechia or hemorrhage. Pupils equal, round and reactive to light. Extraocular movements full and intact. No scleral icterus. No injection or drainage. EARS, NOSE AND THROAT: Nose without bleeding or purulent nasal discharge. No sinus tenderness. Mucous membranes pink and moist. No oral lesions noted. NECK: Trachea midline. Supple and not tender, no meningeal signs. Has some small cervical LN CARDIOVASCULAR: Regular rate and rhythm. No murmurs, rubs or gallops heard RESPIRATORY: Clear to auscultation. Breath sounds equal bilaterally. No rales , wheezing or rhonchi ABDOMEN: Soft, non-tender, nondistended. Bowel sounds present and normoactive. No guarding. No rebound. No organomegaly. EXTREMITIES: LLE warm, no edema, cyanosis, no calf tenderness. RLE - has multiple wounds, with intact dressing NEUROLOGICAL: Grossly non-focal. PSYCHIATRIC: Normal affect, calm and cooperative. LINE: No evidence of infection Assessment & Plan Remarks IMPRESSION Sepsis due to infected R leg wounds, resolved Infected wounds R leg, prob ischemic ulcers - patient has DM and chronic smoker PVD, S/P bypass Known tobacco and ETOH abuse RECOMMENDATION Continue Unasyn Wound care Clinically stable from ID standpoint When ready for D/C from surgery standpoint, ok to D/C and give 10 days Augmentin 500 mg TID I will be available prn Please call if with any new ID issue or question Adrienne Mendenhall MD Mar 23, 2017 15:54
[2017-03-23] MEDS: cloNIDine HCL 0.1 MG TAB PO PRN (16:15)
[2017-03-23] MEDS: ENALAPRILAT 1.25 MG/ML VIAL IV PUSH PRN (16:43)
[2017-03-23] MEDS ORDERED: NIFEdipine 30 MG SUSTAINED RELEASE TAB PO ONE (17:30)
[2017-03-23] MEDS ORDERED: cloNIDine HCL 0.1 MG TAB PO ONE (18:30)
[2017-03-24] VITALS (19 sets, daily range): BP systolic 95–169; BP diastolic 58–82; PULSE 64–97; RESP 16–20; TEMP 97.4–98.8; O2SAT 94–100
[2017-03-24] MEDS: SODIUM CHLOR 0.9% 1000 ML INJ 1,000 ML IV SCH (01:21)
[2017-03-24] MEDS: AMPICILLIN-SULBACTAM INJ 3 GM in SODIUM CHLORIDE 0.9% INJ 100 ML IV SCH ×4 (03:00→21:12)
[2017-03-24 04:27] LABS: AUTOMATED NEUTROPHIL # 3.7 TH/MM3 (1.8-7.7); BASOPHIL % 0.2 % (0.0-2.0); EOSINOPHIL # 0.1 TH/MM3 (0-0.4); EOSINOPHIL % 1.4 % (0.0-4.0); HEMATOCRIT 26.3 % (35.0-46.0); HEMO FLAGS DIFF FINAL; LYMPH % 22.9 % (9.0-44.0); LYMPHOCYTE # 1.4 TH/MM3 (1.0-4.8); MEAN CELL VOLUME 88.7 FL (80.0-100.0); MEAN CORPUSCULAR HEMOGLOBIN 29.1 PG (27.0-34.0); MEAN CORPUSCULAR HGB CONC 32.8 % (32.0-36.0); MONO % 16.2 % (0.0-8.0); NEUT % 59.3 % (16.0-70.0); PLATELET COUNT 149 TH/MM3 (150-450); RED BLOOD COUNT 2.96 MIL/MM3 (4.00-5.30); RED CELL DISTRIBUTION WIDTH 19.8 % (11.6-17.2); WHITE BLOOD COUNT 6.3 TH/MM3 (4.0-11.0)
[2017-03-24] MEDS: LOW DOSE INSULIN NOVOLOG SUPPLEMENTAL SCALE SQ SCH ×4 (08:00→21:00)
[2017-03-24] MEDS: SODIUM CHLORIDE 0.9% FLUSH 10 ML FLUSH IV FLUSH SCH ×2 (09:32→21:12)
[2017-03-24] MEDS: THIAMINE HCL 100 MG TAB PO SCH (09:34)
[2017-03-24] MEDS: LACTOBACILLUS ACIDOPHILUS TAB PO SCH ×3 (09:34→18:54)
[2017-03-24] MEDS: DOCUSATE SODIUM 50 MG/SENNA 8.6 MG TAB PO SCH ×2 (09:35→21:00)
[2017-03-24] MEDS: CARVEDILOL 6.25 MG TAB PO SCH ×2 (09:35→21:12)
[2017-03-24] MEDS: LISINOPRIL 20 MG TAB PO SCH (09:36)
[2017-03-24] MEDS: HEPARIN SODIUM - SQ 10,000 UNITS/ML VIAL SQ SCH ×2 (09:36→21:00)
--- NOTE | 2017-03-24 09:56 | HHI.PR ---
Subjective Remarks resting comfortably with no distress. denies pain. no fever. BP improved. d/w the RN and no acute issues over night. Objective Vitals Vital Signs Date Time Temp Pulse Resp B/P (MAP) Pulse Ox O2 Delivery O2 Flow Rate FiO2 03/24/17 07:24 76 16 145/73 (97) 95 03/24/17 07:22 16 03/24/17 06:00 97 03/24/17 05:00 83 03/24/17 04:00 82 03/24/17 03:35 98.8 87 18 111/58 (75) 99 03/24/17 03:00 75 03/24/17 02:00 80 03/24/17 01:00 78 03/24/17 00:00 79 03/23/17 23:58 98.4 75 18 104/53 (70) 99 03/23/17 23:00 77 03/23/17 22:00 78 03/23/17 21:00 88 03/23/17 20:00 82 03/23/17 20:00 99.2 87 18 157/84 (108) 97 03/23/17 19:00 88 03/23/17 18:00 82 03/23/17 17:00 72 03/23/17 16:42 209/93 (131) 03/23/17 16:00 78 03/23/17 15:39 98.7 80 16 182/77 (112) 100 03/23/17 15:00 76 03/23/17 14:22 79 03/23/17 13:00 81 03/23/17 12:17 99.6 78 16 158/70 (99) 96 03/23/17 12:00 76 03/23/17 11:00 79 03/23/17 10:00 88 I/O 03/23/17 03/23/17 03/23/17 03/24/17 03/24/17 03/24/17 07:00 15:00 23:00 07:00 15:00 23:00 Intake Total 840 ml 2000 ml 480 ml Output Total 1225 ml 600 ml 450 ml Balance -385 ml 1400 ml 30 ml Intake Oral 840 ml 2000 ml 480 ml Output Urine Total 1200 ml 600 ml 450 ml Drainage Total 25 ml # Voids 1 1 Result Diagram: 03/24/17 0345 03/23/17 0503 Imaging Last Impressions Carotid Artery Ultrasound 03/19/17 0000 Signed Impressions: Service Date/Time: Sunday, March 19, 2017 17:35 - CONCLUSION: 1. Mild patchy atherosclerosis of both carotids. No hemodynamically significant narrowing. 2. Retrograde flow within the right vertebral artery suggesting a right subclavian artery stenosis with steal phenomenon. Trevor Young MD Aorta w/Runoff CTA 03/19/17 0000 Signed Impressions: Service Date/Time: Sunday, March 19, 2017 18:47 - CONCLUSION: 1. No significant aortic stenosis or iliac inflow disease. 2. Extensive bilateral SFA disease and moderate bilateral above-knee popliteal artery disease, as above. Patient would likely benefit from outflow intervention. 3. Bulky plaque at the origin of the anterior tibial arteries bilaterally and right tibioperoneal trunk. Otherwise, three-vessel runoff to the foot. 4. 1.6 cm indeterminate right adrenal mass. This can be further evaluated with adrenal mass protocol CT or MRI exam on an outpatient basis as clinically warranted. Gautam Alba MD Lower Extremity Ultrasound 03/18/17 0000 Signed Impressions: Service Date/Time: Saturday, March 18, 2017 12:49 - CONCLUSION: Negative exam with no evidence of abscess. Gonsalo Burris MD Tibia/Fibula X-Ray 03/17/17 0000 Signed Impressions: Service Date/Time: March 17:36 - CONCLUSION: 1. No acute bony abnormality identified. Jj Rolle MD Objective Remarks GENERAL: This is a well-nourished, well-developed patient, in no apparent distress. CARDIOVASCULAR: Regular rate and regular rhythm without murmurs, gallops, or rubs. RESPIRATORY: Clear to auscultation. Breath sounds equal bilaterally. No wheezes , rales, or rhonchi. GASTROINTESTINAL: Abdomen soft, non-tender, nondistended. Normal, active bowel sounds- MUSCULOSKELETAL: right leg covered with clean dressing. NEURO: Alert & Oriented x4 to person, place, time, situation. Moves all ext x4 Procedures External iliac endarterectomy, femoral-popliteal bypass and popliteal endarterectomy. Medications and IVs Current Medications Vancomycin HCl 1000 mg/Sodium Chloride 250 ml @ 250 mls/hr ONCE ONCE IV Last administered on 03/17/17t 16:15; Start 03/17/17 at 16:15; Stop 03/17/17 at 17 :14; Status DC Morphine Sulfate (Morphine Inj) 4 mg ONCE ONCE IV PUSH Last administered on 17:21; Start 03/17/17 at 16:15; Stop 03/17/17 at 16:16; Status DC Ondansetron HCl (Zofran Inj) 4 mg ONCE ONCE IV PUSH Last administered on 03/17 16:15; Start 03/17/17 at 16:15; Stop 03/17/17 at 16:16; Status DC Piperacillin Sod/ Tazobactam Sod 100 ml @ 200 mls/hr ONCE ONCE IV Last administered on 03/17/17 19:09; Start 03/17/17 at 17:30; Stop 03/17/17 at 17 :59; Status DC Sodium Chloride 1,000 ml @ 1,000 mls/hr Q1H ONCE IV Last administered on 03/17 17:20; Start 03/17/17 at 17:20; Stop 03/17/17 at 18:19; Status DC Sodium Chloride 1,000 ml @ 1,000 mls/hr Q1H ONCE IV Last administered on 03/17 17:20; Start 03/17/17 at 17:20; Stop 03/17/17 at 18:19; Status DC Sodium Chloride 100 ml @ 1,000 mls/hr Q6M ONCE IV Last administered on 19:56; Start 03/17/17 at 17:20; Stop 03/17/17 at 17:25; Status DC Pharmacy Profile Note 0 ml @ 0 mls/hr UNSCH OTHER ; Start 03/17/17 at 19:30; Stop 03/21/17 at 09:47; Status DC Folic Acid (Folate) 1 mg DAILY PO Last administered on 03/22/17 08:33; Start 03/18/17 at 09:00; Stop 03/23/17 at 08:59; Status DC Thiamine HCl (Vitamin B1) 100 mg DAILY PO Last administered on 03/24/17 09:34 ; Start 03/18/17 at 09:00 Multivitamins/ Minerals Therapeutic (Theragran M Tab) 1 tab DAILY PO Last administered on 03/22/17 08:33; Start 03/18/17 at 09:00; Stop 03/23/17 at 08 :59; Status DC Flumazenil (Romazicon Inj) 0.2 mg Q1M PRN IV PUSH SEE LABEL COMMENTS; Start at 19:30 Lorazepam (Ativan) 1 mg Q4H PRN PO CIWA 8 - 10; Start 03/17/17 at 19:30 Lorazepam (Ativan Inj) 1 mg Q4H PRN IV PUSH CIWA 8 - 10; Start 03/17/17 at 19: 30 Lorazepam (Ativan) 2 mg Q2H PRN PO CIWA 11-14; Start 03/17/17 at 19:30 Lorazepam (Ativan Inj) 2 mg Q2H PRN IV PUSH CIWA 11-14; Start 03/17/17 at 19: 30 Lorazepam (Ativan Inj) 2 mg Q1H PRN IV PUSH CIWA 15-20; Start 03/17/17 at 19: 30 Lorazepam (Ativan Inj) 2 mg Q15M PRN IV PUSH CIWA > 20; Start 03/17/17 at 19: 30 Haloperidol Lactate (Haldol Inj) 2 mg Q15M PRN IM SEE LABEL COMMENTS; Start at 19:30 Piperacillin Sod/ Tazobactam Sod 100 ml @ 200 mls/hr Q6H IV Last administered on 03/21/17 05:26; Start 03/18/17 at 00:00; Stop 03/21/17 at 09:47; Status DC Sodium Chloride 1,000 ml @ 100 mls/hr Q10H IV Last administered on 03/24/17 01:21; Start 03/17/17 at 19:21 Sodium Chloride (NS Flush) 2 ml UNSCH PRN IV FLUSH FLUSH AFTER USING IV ACCESS ; Start 03/17/17 at 19:30 Sodium Chloride (NS Flush) 2 ml BID IV FLUSH Last administered on 03/24/17 09 :32; Start 03/17/17 at 21:00 Ondansetron HCl (Zofran Inj) 4 mg Q6H PRN IVP NAUSEA OR VOMITING; Start at 19:30 Heparin Sodium (Porcine) (Heparin Inj) 5,000 units Q12H SQ Last administered on 03/24/17 09:36; Start 03/18/17 at 09:00 Acetaminophen (Tylenol) 650 mg Q6H PRN PO FEVER/PAIN SCALE 1 TO 2 Last administered on 03/23/17 21:18; Start 03/17/17 at 19:30 Oxycodone HCl (Roxicodone) 10 mg Q4H PRN PO PAIN SCALE 6 TO 10 Last administered on 03/24/17 06:10; Start 03/17/17 at 19:30 Oxycodone HCl (Roxicodone) 5 mg Q4H PRN PO PAIN SCALE 3 TO 5 Last administered on 03/21/17 22:55; Start 03/17/17 at 19:30 Senna/Docusate Sodium (Heena-Colace) 1 tab BID PO Last administered on 09:35; Start 03/17/17 at 21:00 Magnesium Hydroxide (Milk Of Magnesia Liq) 30 ml Q12H PRN PO Mild constipation ; Start 03/17/17 at 19:30 Sennosides (Senokot) 17.2 mg Q12H PRN PO Moderate constipation; Start at 19:30 Bisacodyl (Dulcolax Supp) 10 mg DAILY PRN RECTAL SEVERE CONSITIPATION; Start 03/17/17 at 19:30 Lactulose (Lactulose Liq) 30 ml DAILY PRN PO SEVERE CONSITIPATION; Start 03/17 at 19:30 Metoprolol Tartrate (Lopressor Inj) 5 mg ONCE ONCE IV PUSH Last administered on 03/17/17 20:26; Start 03/17/17 at 20:15; Stop 03/17/17 at 20:19; Status DC Vancomycin HCl 1000 mg/Sodium Chloride 250 ml @ 250 mls/hr Q12H IV Last administered on 03/21/17 06:06; Start 03/18/17 at 06:00; Stop 03/21/17 at 09 :47; Status DC Miscellaneous Information SPECIFIC LAB TO BE JC... ONCE ONCE .XX ; Start at 05:45; Stop 03/19/17 at 05:49; Status DC Clonidine (Catapres) 0.1 mg ONCE ONCE PO Last administered on 03/18/17 01:02 ; Start 03/18/17 at 00:45; Stop 03/18/17 at 00:49; Status DC Clonidine (Catapres) 0.1 mg Q6H PRN PO SEE LABEL COMMENTS Last administered on 03/23/17 16:15; Start 03/18/17 at 01:00 Pneumococcal Polyvalent Vaccine (Pneumovax-23 Inj) 25 mcg ONCE ONCE IM Last administered on 03/18/17 11:32; Start 03/18/17 at 09:00; Stop 03/18/17 at 09 :01; Status DC Influenza Virus Vaccine (Flu (Quadrivalent) Vaccine Inj) 0.5 ml ONCE ONCE IM Last administered on 03/18/17 11:30; Start 03/18/17 at 09:00; Stop 03/18/17 at 09:01; Status DC Potassium Chloride (KCl) 40 meq ONCE ONCE PO Last administered on 03/18/17 11:26; Start 03/18/17 at 11:00; Stop 03/18/17 at 11:16; Status DC Carvedilol (Coreg) 3.125 mg BID PO Last administered on 03/19/17 09:00; Start 03/18/17 at 11:30; Stop 03/19/17 at 11:46; Status DC Pantoprazole Sodium (Protonix) 40 mg DAILY PO Last administered on 03/23/17 09:01; Start 03/19/17 at 09:00 Lisinopril (Prinivil) 5 mg DAILY PO Last administered on 03/19/17 08:59; Start 03/18/17 at 12:30; Stop 03/19/17 at 11:46; Status DC Enalaprilat (Vasotec Inj) 1.25 mg Q6H PRN IV PUSH bp>160/90 Last administered on 03/23/17 16:43; Start 03/18/17 at 12:30 Sodium Chloride 1,000 ml @ 999 mls/hr BOLUS ONCE IV Last administered on 15:42; Start 03/18/17 at 14:30; Stop 03/18/17 at 15:30; Status DC Lisinopril (Prinivil) 40 mg DAILY PO Last administered on 03/24/17 09:36; Start 03/20/17 at 09:00 Carvedilol (Coreg) 6.25 mg Q12HR PO Last administered on 03/24/17 09:35; Start 03/19/17 at 21:00 Hydralazine HCl (Apresoline Inj) 20 mg ONCE ONCE IV PUSH Last administered on 03/19/17 12:35; Start 03/19/17 at 11:45; Stop 03/19/17 at 11:59; Status DC Lisinopril (Prinivil) 40 mg DAILY PO ; Start 03/20/17 at 09:00; Status UNV Lactobacillus Acidophilus (Lactinex) 1 tab TID PO Last administered on 09:34; Start 03/19/17 at 13:00 Lisinopril (Prinivil) 40 mg ONCE STAT PO ; Start 03/19/17 at 12:45; Stop at 12:53; Status DC Carvedilol (Coreg) 3.125 mg ONCE STAT PO ; Start 03/19/17 at 12:45; Stop at 12:53; Status DC Miscellaneous Information SPECIFIC LAB TO BE JC... ONCE ONCE .XX Last administered on 03/21/17 05:45; Start 03/21/17 at 05:45; Stop 03/21/17 at 05 :46; Status DC Potassium Chloride (KCl) 40 meq ONCE ONCE PO Last administered on 03/19/17 15:08; Start 03/19/17 at 14:45; Stop 03/19/17 at 14:46; Status DC Dextrose (D50w (Vial) Inj) 50 ml UNSCH PRN IV PUSH HYPOGLYCEMIA - SEE COMMENTS ; Start 03/19/17 at 17:30 Glucagon (Glucagon Inj) 1 mg UNSCH PRN OTHER HYPOGLYCEMIA-SEE COMMENTS; Start 03/19/17 at 17:30 Insulin Aspart (NovoLOG SUPPLEMENTAL SCALE) 1 ACHS SLIDING SCALE SQ Last administered on 03/19/17 21:00; Start 03/19/17 at 17:21 Magnesium Sulfate/ Dextrose 100 ml @ 100 mls/hr ONCE ONCE IV Last administered on 03/19/17 17:56; Start 03/19/17 at 17:45; Stop 03/19/17 at 18 :44; Status DC Iohexol (Omnipaque 350 Inj) 100 ml STK-MED ONCE IVCONTRAST Last administered on 03/19/17 19:00; Start 03/19/17 at 19:00; Stop 03/19/17 at 19:01; Status DC Magnesium Sulfate/ Dextrose 100 ml @ 100 mls/hr ONCE ONCE IV Last administered on 03/20/17 09:39; Start 03/20/17 at 09:00; Stop 03/20/17 at 09 :59; Status DC Potassium Chloride (KCl) 30 meq ONCE ONCE PO Last administered on 03/21/17 08:30; Start 03/21/17 at 08:30; Stop 03/21/17 at 08:36; Status DC Ampicillin Sodium/ Sulbactam Sodium 3 gm/Sodium Chloride 100 ml @ 200 mls/hr Q6H IV Last administered on 03/21/17 22:00; Start 03/21/17 at 10:00; Stop 03/22/17 at 14:33; Status DC Lactated Ringer's 1,000 ml @ 30 mls/hr Q24H PRN IV SEE LABEL COMMENTS; Start 03/22/17 at 05:45; Stop 03/25/17 at 05:44 Povidone Iodine (Betadine 5% Antisepsis Kit) 1 applic ELECTRICAL [employer]PECTING OPERATOR PRN EACH NARE SEE LABEL COMMENTS; Start 03/22/17 at 05:45; Stop 03/25/17 at 05:44 Chlorhexidine Gluconate (Chlorhexidine 2% Cloth) 3 pack ELECTRICAL PROSPECTING OPERATOR PRN TOPICAL SEE LABEL COMMENTS; Start 03/22/17 at 05:45; Stop 03/25/17 at 05:44 Heparin Sodium (Porcine) (Heparin Inj) 10,000 units STK-MED ONCE .ROUTE ; Start 03/22/17 at 07:51; Stop 03/22/17 at 07:52; Status DC Protamine Sulfate (Protamine Sulfate Inj) 50 mg STK-MED ONCE .ROUTE ; Start at 07:51; Stop 03/22/17 at 07:52; Status DC Cefazolin Sodium/ Dextrose 50 ml @ As Directed STK-MED ONCE .ROUTE Last administered on 03/22/17 11:18; Start 03/22/17 at 09:59; Stop 03/22/17 at 10 :00; Status DC Bupivacaine HCl/ Epinephrine Bitart (Sensorcaine-Epinephrine Pf 0.5% Inj) 30 ml STK-MED ONCE .ROUTE ; Start 03/22/17 at 09:59; Stop 03/22/17 at 10:00; Status DC Thrombin (Thrombin Top [place]) 20,000 units STK-MED ONCE .ROUTE ; Start at 10:08; Stop 03/22/17 at 10:09; Status DC Heparin Sodium/ Sodium Chloride 500 ml @ As Directed STK-MED ONCE .ROUTE Last administered on 03/22/17 10:08; Start 03/22/17 at 10:08; Stop 03/22/17 at 10 :09; Status DC Morphine Sulfate (*morphine INJ PERIprocedure ONLY) 8 mg STK-MED ONCE .ROUTE Last administered on 03/22/17 13:33; Start 03/22/17 at 13:33; Stop 03/22/17 at 13:34; Status DC Morphine Sulfate (*morphine INJ PERIprocedure ONLY) 8 mg STK-MED ONCE .ROUTE Last administered on 03/22/17 13:49; Start 03/22/17 at 13:49; Stop 03/22/17 at 13:50; Status DC Miscellaneous Information ALL NURSING DEPARTME... UNSCH PRN .XX SEE LABEL COMMENTS; Start 03/22/17 at 13:15; Stop 03/23/17 at 13:14; Status DC Ampicillin Sodium/ Sulbactam Sodium 3 gm/Sodium Chloride 100 ml @ 200 mls/hr Q6H IV Last administered on 03/24/17 09:34; Start 03/22/17 at 15:00 Potassium Chloride (KCl) 40 meq ONCE ONCE PO Last administered on 03/23/17 12:21; Start 03/23/17 at 11:00; Stop 03/23/17 at 11:01; Status DC Nifedipine (Procardia Xl) 30 mg NOW ONCE PO Last administered on 03/23/17 17 :32; Start 03/23/17 at 17:30; Stop 03/23/17 at 17:31; Status DC Clonidine (Catapres) 0.1 mg ONCE ONCE PO Last administered on 03/23/17 18:42 ; Start 03/23/17 at 18:30; Stop 03/23/17 at 18:31; Status DC A/P Problem List: (1) Cellulitis of leg, right ICD Code: L03.115 - Cellulitis of right lower limb (2) UTI (urinary tract infection) ICD Code: N39.0 - Urinary tract infection, site not specified (3) HTN (hypertension) ICD Code: I10 - Essential (primary) hypertension (4) Alcohol abuse ICD Code: F10.10 - Alcohol abuse, uncomplicated (5) Tobacco abuse ICD Code: Z72.0 - Tobacco use Status: Chronic Assessment and Plan A/P Right lower extremity cellulitis with sepsis with gangrene-culture growing group a beta Streptococcus, MSSA, . switched to IV Unasyn- ID and wound care following. will switch to po Augmentin upon discharge- ID f/u appreciated. Peripheral arterial disease- s/p External iliac endarterectomy, femoral-popliteal bypass and popliteal endarterectomy. ( 03/22/17) management per vascular surgery. anemia- likely acute on [id number]; H/H stable. will monitor H/H for now. right subclavian artery stenosis with steal phenomenon- vascular surgery f/u appreciated and no intervention at this time. Hypertensive urgency-resolved, continue Coreg, lisinopril, clonidine and Vasotec as needed, Diabetes mellitus-status scale insulin with Accu-Cheks Alcohol and tobacco abuse-watch out for withdrawal, CIWA protocol, thiamine, folate and multivitamins. Hypomagnesemia-replaced. Hypokalemia; replaced. hyponatremia;improved- will monitor. right adrenal mass- f/u as outpatient. DVT prophylaxis: Heparin Discharge Planning dc home when cleared by vascular surgery. d/w the patient and RN. case management for [facility]. Maxx Banuelos MD Mar 24, 2017 09:56
[2017-03-24] MEDS: ACETAMINOPHEN 325 MG TAB PO PRN ×2 (09:57→15:36)
--- NOTE | 2017-03-24 09:57 | HHI.FF ---
Face to Face Verification Diagnosis: (1) Cellulitis of right lower extremity without foot (2) Peripheral vascular disease Physical Therapy Order: Evaluate and Treat Home Health Nursing Order: Medical education Signs/symptoms of disease process Wound care and dressing changes Nursing assessment with vital signs I have seen patient Cierra Woodruff on 03/24/17. My clinical findings support the need for the requested home health care services because: Ltd mobility - disease progression I certify that my clinical findings support that this patient is homebound because: Unsteady gait/balance Maxx Banuelos MD Mar 24, 2017 09:57
[2017-03-24] MEDS ORDERED: LISI-515 PO (10:01)
[2017-03-24] MEDS ORDERED: AUGM500T7 PO (10:01)
[2017-03-24] MEDS ORDERED: MULT1TAB46 PO (10:01)
[2017-03-24] MEDS: PANTOPRAZOLE SOD 40 MG DELAYED RELEASE TAB PO SCH (12:38)
[2017-03-25] VITALS: BP 168/72; PULSE 93; RESP 20; TEMP 99.8; O2SAT 98
[2017-03-25] MEDS: AMPICILLIN-SULBACTAM INJ 3 GM in SODIUM CHLORIDE 0.9% INJ 100 ML IV SCH ×4 (02:27→20:27)
[2017-03-25 08:00] VITALS: BP 135/73; PULSE 82; RESP 16; TEMP 98.6; O2SAT 96
[2017-03-25] MEDS: LOW DOSE INSULIN NOVOLOG SUPPLEMENTAL SCALE SQ SCH ×4 (08:00→20:28)
[2017-03-25] MEDS: HEPARIN SODIUM - SQ 10,000 UNITS/ML VIAL SQ SCH ×2 (09:00→20:28)
[2017-03-25] MEDS: CARVEDILOL 6.25 MG TAB PO SCH ×2 (09:00→20:35)
[2017-03-25] MEDS: SODIUM CHLORIDE 0.9% FLUSH 10 ML FLUSH IV FLUSH SCH ×2 (09:00→20:27)
[2017-03-25] MEDS: PANTOPRAZOLE SOD 40 MG DELAYED RELEASE TAB PO SCH (09:08)
[2017-03-25] MEDS: LACTOBACILLUS ACIDOPHILUS TAB PO SCH ×3 (09:08→16:52)
[2017-03-25] MEDS: DOCUSATE SODIUM 50 MG/SENNA 8.6 MG TAB PO SCH ×2 (09:09→20:27)
[2017-03-25] MEDS: THIAMINE HCL 100 MG TAB PO SCH (09:09)
[2017-03-25] MEDS: LISINOPRIL 20 MG TAB PO SCH (09:09)
[2017-03-25] MEDS: CLOPIDOGREL 75 MG TAB PO SCH (09:12)
--- NOTE | 2017-03-25 11:57 | HHI.PR ---
Subjective Remarks resting comfortably with no distress. denies pain. no fever. BP improved. d/w the RN and no acute issues over night. 03-25 DW RN AND PT AND CM DW DR NEIL CONTINUE CURRENT CARE MONITOR TODAY Objective Vitals Vital Signs Date Time Temp Pulse Resp B/P (MAP) Pulse Ox O2 Delivery O2 Flow Rate FiO2 03/25/17 08:00 98.6 82 16 135/73 (93) 96 03/25/17 00:00 99.8 93 20 168/72 (104) 98 03/24/17 20:00 97.6 77 20 158/70 (99) 100 03/24/17 16:00 97.4 83 20 95/80 (85) 96 03/24/17 13:00 94 03/24/17 12:39 16 03/24/17 12:00 76 I/O 03/24/17 03/24/17 03/24/17 03/25/17 03/25/17 03/25/17 07:00 15:00 23:00 07:00 15:00 23:00 Intake Total 480 ml 800 ml 1160 ml 420 ml Output Total 450 ml 850 ml Balance 30 ml 800 ml 310 ml 420 ml Intake Oral 480 ml 960 ml 320 ml IV Total 800 ml 200 ml 100 ml Output Urine Total 450 ml 850 ml # Voids 1 4 # Bowel Movements 1 Result Diagram: 03/24/17 0345 03/23/17 0503 Other Results Laboratory Tests Test 03/23/17 05:03 03/24/17 03:45 White Blood Count 4.9 TH/MM3 6.3 TH/MM3 Red Blood Count 2.58 MIL/MM3 2.96 MIL/MM3 Hemoglobin 7.7 GM/DL 8.6 GM/DL Hematocrit 22.9 % 26.3 % Mean Corpuscular Volume 88.8 FL 88.7 FL Mean Corpuscular Hemoglobin 30.0 PG 29.1 PG Mean Corpuscular Hemoglobin Concent 33.7 % 32.8 % Red Cell Distribution Width 20.4 % 19.8 % Platelet Count 149 TH/MM3 149 TH/MM3 Mean Platelet Volume 7.0 FL 6.9 FL Neutrophils (%) (Auto) 58.7 % 59.3 % Lymphocytes (%) (Auto) 24.5 % 22.9 % Monocytes (%) (Auto) 14.7 % 16.2 % Eosinophils (%) (Auto) 1.7 % 1.4 % Basophils (%) (Auto) 0.4 % 0.2 % Neutrophils # (Auto) 2.9 TH/MM3 3.7 TH/MM3 Lymphocytes # (Auto) 1.2 TH/MM3 1.4 TH/MM3 Monocytes # (Auto) 0.7 TH/MM3 1.0 TH/MM3 Eosinophils # (Auto) 0.1 TH/MM3 0.1 TH/MM3 Basophils # (Auto) 0.0 TH/MM3 0.0 TH/MM3 CBC Comment DIFF FINAL DIFF FINAL Differential Comment Blood Urea Nitrogen 6 MG/DL Creatinine 0.58 MG/DL Random Glucose 89 MG/DL Calcium Level 7.9 MG/DL Sodium Level 133 MEQ/L Potassium Level 3.2 MEQ/L Chloride Level 100 MEQ/L Carbon Dioxide Level 25.2 MEQ/L Anion Gap 8 MEQ/L Estimat Glomerular Filtration Rate 131 ML/MIN Imaging Last Impressions Carotid Artery Ultrasound 03/19/17 0000 Signed Impressions: Service Date/Time: Sunday, March 19, 2017 17:35 - CONCLUSION: 1. Mild patchy atherosclerosis of both carotids. No hemodynamically significant narrowing. 2. Retrograde flow within the right vertebral artery suggesting a right subclavian artery stenosis with steal phenomenon. Treovr Young MD Aorta w/Runoff CTA 03/19/17 0000 Signed Impressions: Service Date/Time: Sunday, March 19, 2017 18:47 - CONCLUSION: 1. No significant aortic stenosis or iliac inflow disease. 2. Extensive bilateral SFA disease and moderate bilateral above-knee popliteal artery disease, as above. Patient would likely benefit from outflow intervention. 3. Bulky plaque at the origin of the anterior tibial arteries bilaterally and right tibioperoneal trunk. Otherwise, three-vessel runoff to the foot. 4. 1.6 cm indeterminate right adrenal mass. This can be further evaluated with adrenal mass protocol CT or MRI exam on an outpatient basis as clinically warranted. Gautam Alba MD Lower Extremity Ultrasound 03/18/17 0000 Signed Impressions: Service Date/Time: Saturday, March 18, 2017 12:49 - CONCLUSION: Negative exam with no evidence of abscess. Gonsalo Burris MD Tibia/Fibula X-Ray 03/17/17 0000 Signed Impressions: Service Date/Time: March 17:36 - CONCLUSION: 1. No acute bony abnormality identified. Jj Rolle MD Objective Remarks GENERAL: Awake alert talkative and cooperative SKIN: Warm and dry. Right leg is dressed Steri-Strips in place HEAD: Atraumatic. Normocephalic. EYES: Pupils equal and round. No scleral icterus. No injection or drainage. EOMI ENT: No nasal bleeding or discharge. Mucous membranes pink and moist. Tongue is midline NECK: Trachea midline. No JVD. Supple CARDIOVASCULAR: Regular rate and rhythm. S1 and S2 no S3-S4 no heave or thrill or rub or gallop RESPIRATORY: No accessory muscle use. Clear to auscultation. Breath sounds equal bilaterally. GASTROINTESTINAL: Abdomen soft, non-tender, nondistended. Hepatic and splenic margins not palpable. MUSCULOSKELETAL: Extremities without clubbing, cyanosis, or edema. No obvious deformities. NEUROLOGICAL: Awake and alert. No obvious cranial nerve deficits. Motor grossly within normal limits. 4 out of 5 muscle strength in the arms and legs. Normal speech. Right lower extremity is dressed PSYCHIATRIC: Appropriate mood and affect; insight and judgment normal. Procedures External iliac endarterectomy, femoral-popliteal bypass and popliteal endarterectomy. Medications and IVs Current Medications Vancomycin HCl 1000 mg/Sodium Chloride 250 ml @ 250 mls/hr ONCE ONCE IV Last administered on 03/17/17 16:15; Start 03/17/17 at 16:15; Stop 03/17/17 at 17 :14; Status DC Morphine Sulfate (Morphine Inj) 4 mg ONCE ONCE IV PUSH Last administered on 17:21; Start 03/17/17 at 16:15; Stop 03/17/17 at 16:16; Status DC Ondansetron HCl (Zofran Inj) 4 mg ONCE ONCE IV PUSH Last administered on 03/17 16:15; Start 03/17/17 at 16:15; Stop 03/17/17 at 16:16; Status DC Piperacillin Sod/ Tazobactam Sod 100 ml @ 200 mls/hr ONCE ONCE IV Last administered on 03/17/17 19:09; Start 03/17/17 at 17:30; Stop 03/17/17 at 17 :59; Status DC Sodium Chloride 1,000 ml @ 1,000 mls/hr Q1H ONCE IV Last administered on 03/17 17:20; Start 03/17/17 at 17:20; Stop 03/17/17 at 18:19; Status DC Sodium Chloride 1,000 ml @ 1,000 mls/hr Q1H ONCE IV Last administered on 03/17 17:20; Start 03/17/17 at 17:20; Stop 03/17/17 at 18:19; Status DC Sodium Chloride 100 ml @ 1,000 mls/hr Q6M ONCE IV Last administered on 19:56; Start 03/17/17 at 17:20; Stop 03/17/17 at 17:25; Status DC Pharmacy Profile Note 0 ml @ 0 mls/hr UNSCH OTHER ; Start 03/17/17 at 19:30; Stop 03/21/17 at 09:47; Status DC Folic Acid (Folate) 1 mg DAILY PO Last administered on 03/22/17 08:33; Start 03/18/17 at 09:00; Stop 03/23/17 at 08:59; Status DC Thiamine HCl (Vitamin B1) 100 mg DAILY PO Last administered on 03/25/17 09:09 ; Start 03/18/17 at 09:00 Multivitamins/ Minerals Therapeutic (Theragran M Tab) 1 tab DAILY PO Last administered on 03/22/17 08:33; Start 03/18/17 at 09:00; Stop 03/23/17 at 08 :59; Status DC Flumazenil (Romazicon Inj) 0.2 mg Q1M PRN IV PUSH SEE LABEL COMMENTS; Start at 19:30 Lorazepam (Ativan) 1 mg Q4H PRN PO CIWA 8 - 10; Start 03/17/17 at 19:30 Lorazepam (Ativan Inj) 1 mg Q4H PRN IV PUSH CIWA 8 - 10; Start 03/17/17 at 19: 30 Lorazepam (Ativan) 2 mg Q2H PRN PO CIWA 11-14; Start 03/17/17 at 19:30 Lorazepam (Ativan Inj) 2 mg Q2H PRN IV PUSH CIWA 11-14; Start 03/17/17 at 19: 30 Lorazepam (Ativan Inj) 2 mg Q1H PRN IV PUSH CIWA 15-20; Start 03/17/17 at 19: 30 Lorazepam (Ativan Inj) 2 mg Q15M PRN IV PUSH CIWA > 20; Start 03/17/17 at 19: 30 Haloperidol Lactate (Haldol Inj) 2 mg Q15M PRN IM SEE LABEL COMMENTS; Start at 19:30 Piperacillin Sod/ Tazobactam Sod 100 ml @ 200 mls/hr Q6H IV Last administered on 03/21/17 05:26; Start 03/18/17 at 00:00; Stop 03/21/17 at 09:47; Status DC Sodium Chloride 1,000 ml @ 100 mls/hr Q10H IV Last administered on 03/24/17 01:21; Start 03/17/17 at 19:21; Status Future Hold Sodium Chloride (NS Flush) 2 ml UNSCH PRN IV FLUSH FLUSH AFTER USING IV ACCESS ; Start 03/17/17 at 19:30 Sodium Chloride (NS Flush) 2 ml BID IV FLUSH Last administered on 03/25/17 09 :00; Start 03/17/17 at 21:00 Ondansetron HCl (Zofran Inj) 4 mg Q6H PRN IVP NAUSEA OR VOMITING; Start at 19:30 Heparin Sodium (Porcine) (Heparin Inj) 5,000 units Q12H SQ Last administered on 03/25/17 09:00; Start 03/18/17 at 09:00 Acetaminophen (Tylenol) 650 mg Q6H PRN PO FEVER/PAIN SCALE 1 TO 2 Last administered on 03/24/17 15:36; Start 03/17/17 at 19:30 Oxycodone HCl (Roxicodone) 10 mg Q4H PRN PO PAIN SCALE 6 TO 10 Last administered on 03/25/17 09:09; Start 03/17/17 at 19:30 Oxycodone HCl (Roxicodone) 5 mg Q4H PRN PO PAIN SCALE 3 TO 5 Last administered on 03/21/17 22:55; Start 03/17/17 at 19:30 Senna/Docusate Sodium (Heena-Colace) 1 tab BID PO Last administered on 09:09; Start 03/17/17 at 21:00 Magnesium Hydroxide (Milk Of Magnesia Liq) 30 ml Q12H PRN PO Mild constipation ; Start 03/17/17 at 19:30 Sennosides (Senokot) 17.2 mg Q12H PRN PO Moderate constipation; Start at 19:30 Bisacodyl (Dulcolax Supp) 10 mg DAILY PRN RECTAL SEVERE CONSITIPATION; Start 03/17/17 at 19:30 Lactulose (Lactulose Liq) 30 ml DAILY PRN PO SEVERE CONSITIPATION; Start 03/17 at 19:30 Metoprolol Tartrate (Lopressor Inj) 5 mg ONCE ONCE IV PUSH Last administered on 03/17/17 20:26; Start 03/17/17 at 20:15; Stop 03/17/17 at 20:19; Status DC Vancomycin HCl 1000 mg/Sodium Chloride 250 ml @ 250 mls/hr Q12H IV Last administered on 03/21/17 06:06; Start 03/18/17 at 06:00; Stop 03/21/17 at 09 :47; Status DC Miscellaneous Information SPECIFIC LAB TO BE JC... ONCE ONCE .XX ; Start at 05:45; Stop 03/19/17 at 05:49; Status DC Clonidine (Catapres) 0.1 mg ONCE ONCE PO Last administered on 03/18/17 01:02 ; Start 03/18/17 at 00:45; Stop 03/18/17 at 00:49; Status DC Clonidine (Catapres) 0.1 mg Q6H PRN PO SEE LABEL COMMENTS Last administered on 03/23/17 16:15; Start 03/18/17 at 01:00 Pneumococcal Polyvalent Vaccine (Pneumovax-23 Inj) 25 mcg ONCE ONCE IM Last administered on 03/18/17 11:32; Start 03/18/17 at 09:00; Stop 03/18/17 at 09 :01; Status DC Influenza Virus Vaccine (Flu (Quadrivalent) Vaccine Inj) 0.5 ml ONCE ONCE IM Last administered on 03/18/17 11:30; Start 03/18/17 at 09:00; Stop 03/18/17 at 09:01; Status DC Potassium Chloride (KCl) 40 meq ONCE ONCE PO Last administered on 03/18/17 11:26; Start 03/18/17 at 11:00; Stop 03/18/17 at 11:16; Status DC Carvedilol (Coreg) 3.125 mg BID PO Last administered on 03/19/17 09:00; Start 03/18/17 at 11:30; Stop 03/19/17 at 11:46; Status DC Pantoprazole Sodium (Protonix) 40 mg DAILY PO Last administered on 03/25/17 09:08; Start 03/19/17 at 09:00 Lisinopril (Prinivil) 5 mg DAILY PO Last administered on 03/19/17 08:59; Start 03/18/17 at 12:30; Stop 03/19/17 at 11:46; Status DC Enalaprilat (Vasotec Inj) 1.25 mg Q6H PRN IV PUSH bp>160/90 Last administered on 03/23/17 16:43; Start 03/18/17 at 12:30 Sodium Chloride 1,000 ml @ 999 mls/hr BOLUS ONCE IV Last administered on 15:42; Start 03/18/17 at 14:30; Stop 03/18/17 at 15:30; Status DC Lisinopril (Prinivil) 40 mg DAILY PO Last administered on 03/25/17 09:09; Start 03/20/17 at 09:00 Carvedilol (Coreg) 6.25 mg Q12HR PO Last administered on 03/25/17 09:00; Start 03/19/17 at 21:00 Hydralazine HCl (Apresoline Inj) 20 mg ONCE ONCE IV PUSH Last administered on 03/19/17 12:35; Start 03/19/17 at 11:45; Stop 03/19/17 at 11:59; Status DC Lisinopril (Prinivil) 40 mg DAILY PO ; Start 03/20/17 at 09:00; Status UNV Lactobacillus Acidophilus (Lactinex) 1 tab TID PO Last administered on 09:08; Start 03/19/17 at 13:00 Lisinopril (Prinivil) 40 mg ONCE STAT PO ; Start 03/19/17 at 12:45; Stop at 12:53; Status DC Carvedilol (Coreg) 3.125 mg ONCE STAT PO ; Start 03/19/17 at 12:45; Stop at 12:53; Status DC Miscellaneous Information SPECIFIC LAB TO BE JC... ONCE ONCE .XX Last administered on 03/21/17 05:45; Start 03/21/17 at 05:45; Stop 03/21/17 at 05 :46; Status DC Potassium Chloride (KCl) 40 meq ONCE ONCE PO Last administered on 03/19/17 15:08; Start 03/19/17 at 14:45; Stop 03/19/17 at 14:46; Status DC Dextrose (D50w (Vial) Inj) 50 ml UNSCH PRN IV PUSH HYPOGLYCEMIA - SEE COMMENTS ; Start 03/19/17 at 17:30 Glucagon (Glucagon Inj) 1 mg UNSCH PRN OTHER HYPOGLYCEMIA-SEE COMMENTS; Start 03/19/17 at 17:30 Insulin Aspart (NovoLOG SUPPLEMENTAL SCALE) 1 ACHS SLIDING SCALE SQ Last administered on 03/19/17 21:00; Start 03/19/17 at 17:21 Magnesium Sulfate/ Dextrose 100 ml @ 100 mls/hr ONCE ONCE IV Last administered on 03/19/17 17:56; Start 03/19/17 at 17:45; Stop 03/19/17 at 18 :44; Status DC Iohexol (Omnipaque 350 Inj) 100 ml STK-MED ONCE IVCONTRAST Last administered on 03/19/17 19:00; Start 03/19/17 at 19:00; Stop 03/19/17 at 19:01; Status DC Magnesium Sulfate/ Dextrose 100 ml @ 100 mls/hr ONCE ONCE IV Last administered on 03/20/17 09:39; Start 03/20/17 at 09:00; Stop 03/20/17 at 09 :59; Status DC Potassium Chloride (KCl) 30 meq ONCE ONCE PO Last administered on 03/21/17 08:30; Start 03/21/17 at 08:30; Stop 03/21/17 at 08:36; Status DC Ampicillin Sodium/ Sulbactam Sodium 3 gm/Sodium Chloride 100 ml @ 200 mls/hr Q6H IV Last administered on 03/21/17 22:00; Start 03/21/17 at 10:00; Stop 03/22/17 at 14:33; Status DC Lactated Ringer's 1,000 ml @ 30 mls/hr Q24H PRN IV SEE LABEL COMMENTS; Start 03/22/17 at 05:45; Stop 03/25/17 at 05:44; Status DC Povidone Iodine (Betadine 5% Antisepsis Kit) 1 applic DISABILITY PROGRAM NAVIGATOR PRN EACH NARE SEE LABEL COMMENTS; Start 03/22/17 at 05:45; Stop 03/25/17 at 05:44; Status DC Chlorhexidine Gluconate (Chlorhexidine 2% Cloth) 3 pack DISABILITY PROGRAM NAVIGATOR PRN TOPICAL SEE LABEL COMMENTS; Start 03/22/17 at 05:45; Stop 03/25/17 at 05:44; Status DC Heparin Sodium (Porcine) (Heparin Inj) 10,000 units STK-MED ONCE .ROUTE ; Start 03/22/17 at 07:51; Stop 03/22/17 at 07:52; Status DC Protamine Sulfate (Protamine Sulfate Inj) 50 mg STK-MED ONCE .ROUTE ; Start at 07:51; Stop 03/22/17 at 07:52; Status DC Cefazolin Sodium/ Dextrose 50 ml @ As Directed STK-MED ONCE .ROUTE Last administered on 03/22/17 11:18; Start 03/22/17 at 09:59; Stop 03/22/17 at 10 :00; Status DC Bupivacaine HCl/ Epinephrine Bitart (Sensorcaine-Epinephrine Pf 0.5% Inj) 30 ml STK-MED ONCE .ROUTE ; Start 03/22/17 at 09:59; Stop 03/22/17 at 10:00; Status DC Thrombin (Thrombin [place]) 20,000 units STK-MED ONCE .ROUTE ; Start at 10:08; Stop 03/22/17 at 10:09; Status DC Heparin Sodium/ Sodium Chloride 500 ml @ As Directed STK-MED ONCE .ROUTE Last administered on 03/22/17 10:08; Start 03/22/17 at 10:08; Stop 03/22/17 at 10 :09; Status DC Morphine Sulfate (*morphine INJ PERIprocedure ONLY) 8 mg STK-MED ONCE .ROUTE Last administered on 03/22/17 13:33; Start 03/22/17 at 13:33; Stop 03/22/17 at 13:34; Status DC Morphine Sulfate (*morphine INJ PERIprocedure ONLY) 8 mg STK-MED ONCE .ROUTE Last administered on 03/22/17 13:49; Start 03/22/17 at 13:49; Stop 03/22/17 at 13:50; Status DC Miscellaneous Information ALL NURSING DEPARTME... UNSCH PRN .XX SEE LABEL COMMENTS; Start 03/22/17 at 13:15; Stop 03/23/17 at 13:14; Status DC Ampicillin Sodium/ Sulbactam Sodium 3 gm/Sodium Chloride 100 ml @ 200 mls/hr Q6H IV Last administered on 03/25/17 09:00; Start 03/22/17 at 15:00 Potassium Chloride (KCl) 40 meq ONCE ONCE PO Last administered on 03/23/17 12:21; Start 03/23/17 at 11:00; Stop 03/23/17 at 11:01; Status DC Nifedipine (Procardia Xl) 30 mg NOW ONCE PO Last administered on 03/23/17 17 :32; Start 03/23/17 at 17:30; Stop 03/23/17 at 17:31; Status DC Clonidine (Catapres) 0.1 mg ONCE ONCE PO Last administered on 03/23/17 18:42 ; Start 03/23/17 at 18:30; Stop 03/23/17 at 18:31; Status DC Clopidogrel Bisulfate (Plavix) 75 mg DAILY PO Last administered on 03/25/17 09:12; Start 03/25/17 at 09:00 A/P Problem List: (1) Cellulitis of leg, right ICD Code: L03.115 - Cellulitis of right lower limb (2) UTI (urinary tract infection) ICD Code: N39.0 - Urinary tract infection, site not specified (3) HTN (hypertension) ICD Code: I10 - Essential (primary) hypertension (4) Alcohol abuse ICD Code: F10.10 - Alcohol abuse, uncomplicated (5) Tobacco abuse ICD Code: Z72.0 - Tobacco use Status: Chronic Assessment and Plan Assessment and Plan A/P Right lower extremity cellulitis with sepsis with gangrene-culture growing group a beta Streptococcus, MSSA, . switched to IV Unasyn- ID and wound care following. will switch to po Augmentin upon discharge- ID f/u appreciated. Peripheral arterial disease- s/p External iliac endarterectomy, femoral-popliteal bypass and popliteal endarterectomy. ( 11/21/17) management per vascular surgery. anemia- likely acute on [id number]; H/H stable. will monitor H/H for now. right subclavian artery stenosis with steal phenomenon- vascular surgery f/u appreciated and no intervention at this time. Hypertensive urgency-resolved, continue Coreg, lisinopril, clonidine and Vasotec as needed, Diabetes mellitus-status scale insulin with Accu-Cheks Alcohol and tobacco abuse-watch out for withdrawal, CIWA protocol, thiamine, folate and multivitamins. Hypomagnesemia-replaced. Hypokalemia; replaced. hyponatremia;improved- will monitor. right adrenal mass- f/u as outpatient. DVT prophylaxis: Heparin A.m. labs Continue current wound care Case management consult Discharge Planning Case management consult Continue physical therapy occupational therapy Erickson Eng DO Mar 25, 2017 11:57
[2017-03-25 12:00] VITALS: BP 117/61; PULSE 79; RESP 16; TEMP 97.7; O2SAT 98
[2017-03-25] MEDS: NICOTINE 14 MG/24 HR PATCH T-DERMAL SCH (13:41)
[2017-03-25] MEDS: ACETAMINOPHEN 325 MG TAB PO PRN (13:57)
[2017-03-25 16:00] VITALS: BP 105/59; PULSE 68; RESP 16; TEMP 98.4; O2SAT 97
[2017-03-25 20:00] VITALS: BP 101/70; PULSE 83; RESP 20; TEMP 97.9; O2SAT 98
[2017-03-25] MEDS: REMOVE OLD PATCH T-DERMAL SCH (20:36)
[2017-03-26] VITALS (7 sets, daily range): BP systolic 109–195; BP diastolic 60–88; PULSE 71–91; RESP 16–20; TEMP 97.5–99.7; O2SAT 94–98
[2017-03-26] MEDS: ACETAMINOPHEN 325 MG TAB PO PRN ×2 (00:41→08:53)
[2017-03-26] MEDS: ENALAPRILAT 1.25 MG/ML VIAL IV PUSH PRN (01:35)
[2017-03-26] MEDS: AMPICILLIN-SULBACTAM INJ 3 GM in SODIUM CHLORIDE 0.9% INJ 100 ML IV SCH ×4 (02:50→19:48)
[2017-03-26 07:06] LABS: AUTOMATED NEUTROPHIL # 3.5 TH/MM3 (1.8-7.7); BASOPHIL % 0.4 % (0.0-2.0); EOSINOPHIL # 0.2 TH/MM3 (0-0.4); EOSINOPHIL % 2.6 % (0.0-4.0); HEMATOCRIT 24.8 % (35.0-46.0); HEMO FLAGS DIFF FINAL; LYMPH % 28.5 % (9.0-44.0); LYMPHOCYTE # 1.8 TH/MM3 (1.0-4.8); MEAN CORPUSCULAR HEMOGLOBIN 29.7 PG (27.0-34.0); MEAN CORPUSCULAR HGB CONC 33.4 % (32.0-36.0); MONO % 13.5 % (0.0-8.0); PLATELET COUNT 173 TH/MM3 (150-450); RED BLOOD COUNT 2.79 MIL/MM3 (4.00-5.30); RED CELL DISTRIBUTION WIDTH 19.9 % (11.6-17.2); WHITE BLOOD COUNT 6.3 TH/MM3 (4.0-11.0)
[2017-03-26 07:45] LABS: ALKALINE PHOSPHATASE 64 U/L (45-117); ALT (GPT) 14 U/L (10-53); ANION GAP 9 MEQ/L (5-15); AST (GOT) 22 U/L (15-37); BICARBONATE 27.9 MEQ/L (21.0-32.0); BLOOD UREA NITROGEN 10 MG/DL (7-18); CHLORIDE 95 MEQ/L (98-107); FREE T4 1.64 NG/DL (0.76-1.46); GLOMERULAR FILTRATION RATE 107 ML/MIN (>89); MAGNESIUM 1.5 MG/DL (1.5-2.5); SODIUM (NA) 132 MEQ/L (136-145); TOTAL BILIRUBIN ADULT 0.2 MG/DL (0.2-1.0)
[2017-03-26 08:35] LABS: POTASSIUM 2.8 MEQ/L (3.5-5.1)
[2017-03-26] MEDS: LOW DOSE INSULIN NOVOLOG SUPPLEMENTAL SCALE SQ SCH ×4 (08:51→19:52)
[2017-03-26] MEDS: HEPARIN SODIUM - SQ 10,000 UNITS/ML VIAL SQ SCH ×2 (08:52→19:48)
[2017-03-26] MEDS: PANTOPRAZOLE SOD 40 MG DELAYED RELEASE TAB PO SCH (08:53)
[2017-03-26] MEDS: LACTOBACILLUS ACIDOPHILUS TAB PO SCH ×3 (08:53→17:25)
[2017-03-26] MEDS: DOCUSATE SODIUM 50 MG/SENNA 8.6 MG TAB PO SCH ×2 (08:53→19:47)
[2017-03-26] MEDS: CLOPIDOGREL 75 MG TAB PO SCH (08:54)
[2017-03-26] MEDS: THIAMINE HCL 100 MG TAB PO SCH (08:54)
[2017-03-26] MEDS: CARVEDILOL 6.25 MG TAB PO SCH ×2 (08:55→19:47)
[2017-03-26] MEDS: LISINOPRIL 20 MG TAB PO SCH (08:55)
[2017-03-26] MEDS: cloNIDine HCL 0.1 MG TAB PO PRN (08:55)
[2017-03-26] MEDS: SODIUM CHLORIDE 0.9% FLUSH 10 ML FLUSH IV FLUSH SCH ×2 (08:55→19:48)
[2017-03-26] MEDS: NICOTINE 14 MG/24 HR PATCH T-DERMAL SCH (08:57)
[2017-03-26] MEDS ORDERED: POTASSIUM CHLORIDE 25 MEQ EFFERVESCENT TAB PO ONE (09:30)
[2017-03-26] MEDS: MAGNESIUM SULFAT 1 GM PREMIX 100 ML x2 bags IV SCH ×2 (10:03→12:26)
--- NOTE | 2017-03-26 11:01 | HHI.PR ---
Subjective Remarks resting comfortably with no distress. denies pain. no fever. BP improved. d/w the RN and no acute issues over night. 03-25 DW RN AND PT AND CM DW DR NEIL CONTINUE CURRENT CARE MONITOR TODAY 03-26 LESS PAIN RIGHT LEG HOPEFULLY HOME IN NEXT 24-48 HOURS AM LABS POSSIBLE HOMELESS REPLACE POTASSIUM AND MAGNESIUM Objective Vitals Vital Signs Date Time Temp Pulse Resp B/P (MAP) Pulse Ox O2 Delivery O2 Flow Rate FiO2 03/26/17 08:00 97.8 83 17 194/85 (121) 97 03/26/17 04:29 88 109/70 (83) 03/26/17 00:00 99.7 91 20 195/88 (123) 98 03/25/17 20:00 97.9 83 20 101/70 (80) 98 03/25/17 16:00 98.4 68 16 105/59 (74) 97 03/25/17 12:00 97.7 79 16 117/61 (79) 98 I/O 03/25/17 03/25/17 03/25/17 03/26/17 03/26/17 03/26/17 07:00 15:00 23:00 07:00 15:00 23:00 Intake Total 420 ml 740 ml 820 ml Output Total 1 ml Balance 420 ml 740 ml 819 ml Intake Oral 320 ml 640 ml 720 ml IV Total 100 ml 100 ml 100 ml Stool Total 1 ml # Voids 4 4 2 # Bowel Movements 1 1 Result Diagram: 03/26/17 0600 03/26/17 0600 Other Results Laboratory Tests Test 03/24/17 03:45 03/26/17 06:00 White Blood Count 6.3 TH/MM3 6.3 TH/MM3 Red Blood Count 2.96 MIL/MM3 2.79 MIL/MM3 Hemoglobin 8.6 GM/DL 8.3 GM/DL Hematocrit 26.3 % 24.8 % Mean Corpuscular Volume 88.7 FL 89.0 FL Mean Corpuscular Hemoglobin 29.1 PG 29.7 PG Mean Corpuscular Hemoglobin Concent 32.8 % 33.4 % Red Cell Distribution Width 19.8 % 19.9 % Platelet Count 149 TH/MM3 173 TH/MM3 Mean Platelet Volume 6.9 FL 7.2 FL Neutrophils (%) (Auto) 59.3 % 55.0 % Lymphocytes (%) (Auto) 22.9 % 28.5 % Monocytes (%) (Auto) 16.2 % 13.5 % Eosinophils (%) (Auto) 1.4 % 2.6 % Basophils (%) (Auto) 0.2 % 0.4 % Neutrophils # (Auto) 3.7 TH/MM3 3.5 TH/MM3 Lymphocytes # (Auto) 1.4 TH/MM3 1.8 TH/MM3 Monocytes # (Auto) 1.0 TH/MM3 0.9 TH/MM3 Eosinophils # (Auto) 0.1 TH/MM3 0.2 TH/MM3 Basophils # (Auto) 0.0 TH/MM3 0.0 TH/MM3 CBC Comment DIFF FINAL DIFF FINAL Differential Comment Blood Urea Nitrogen 10 MG/DL Creatinine 0.69 MG/DL Random Glucose 94 MG/DL Total Protein 7.9 GM/DL Albumin 1.9 GM/DL Calcium Level 8.3 MG/DL Phosphorus Level 3.3 MG/DL Magnesium Level 1.5 MG/DL Alkaline Phosphatase 64 U/L Aspartate Amino Transf (AST/SGOT) 22 U/L Alanine Aminotransferase (ALT/SGPT) 14 U/L Total Bilirubin 0.2 MG/DL Sodium Level 132 MEQ/L Potassium Level 2.8 MEQ/L Chloride Level 95 MEQ/L Carbon Dioxide Level 27.9 MEQ/L Anion Gap 9 MEQ/L Estimat Glomerular Filtration Rate 107 ML/MIN Free Thyroxine 1.64 NG/DL Thyroid Stimulating Hormone 3rd Gen 1.540 uIU/ML Imaging Last Impressions Carotid Artery Ultrasound 03/19/17 0000 Signed Impressions: Service Date/Time: Sunday, March 19, 2017 17:35 - CONCLUSION: 1. Mild patchy atherosclerosis of both carotids. No hemodynamically significant narrowing. 2. Retrograde flow within the right vertebral artery suggesting a right subclavian artery stenosis with steal phenomenon. Trevor Young MD Aorta w/Runoff CTA 03/19/17 0000 Signed Impressions: Service Date/Time: Sunday, March 19, 2017 18:47 - CONCLUSION: 1. No significant aortic stenosis or iliac inflow disease. 2. Extensive bilateral SFA disease and moderate bilateral above-knee popliteal artery disease, as above. Patient would likely benefit from outflow intervention. 3. Bulky plaque at the origin of the anterior tibial arteries bilaterally and right tibioperoneal trunk. Otherwise, three-vessel runoff to the foot. 4. 1.6 cm indeterminate right adrenal mass. This can be further evaluated with adrenal mass protocol CT or MRI exam on an outpatient basis as clinically warranted. Gautam Alba MD Lower Extremity Ultrasound 03/18/17 0000 Signed Impressions: Service Date/Time: Saturday, March 18, 2017 12:49 - CONCLUSION: Negative exam with no evidence of abscess. Gonsalo Burris MD Tibia/Fibula X-Ray 03/17/17 0000 Signed Impressions: Service Date/Time: March 17:36 - CONCLUSION: 1. No acute bony abnormality identified. Jj Rolle MD Objective Remarks GENERAL: Awake alert talkative and cooperative SKIN: Warm and dry. Right leg is dressed Steri-Strips in place HEAD: Atraumatic. Normocephalic. EYES: Pupils equal and round. No scleral icterus. No injection or drainage. EOMI ENT: No nasal bleeding or discharge. Mucous membranes pink and moist. Tongue is midline NECK: Trachea midline. No JVD. Supple CARDIOVASCULAR: Regular rate and rhythm. S1 and S2 no S3-S4 no heave or thrill or rub or gallop RESPIRATORY: No accessory muscle use. Clear to auscultation. Breath sounds equal bilaterally. GASTROINTESTINAL: Abdomen soft, non-tender, nondistended. Hepatic and splenic margins not palpable. MUSCULOSKELETAL: Extremities without clubbing, cyanosis, or edema. No obvious deformities. NEUROLOGICAL: Awake and alert. No obvious cranial nerve deficits. Motor grossly within normal limits. 4 out of 5 muscle strength in the arms and legs. Normal speech. Right lower extremity is dressed PSYCHIATRIC: Appropriate mood and affect; insight and judgment normal. Procedures External iliac endarterectomy, femoral-popliteal bypass and popliteal endarterectomy. Medications and IVs Current Medications Vancomycin HCl 1000 mg/Sodium Chloride 250 ml @ 250 mls/hr ONCE ONCE IV Last administered on 03/17/17 16:15; Start 03/17/17 at 16:15; Stop 03/17/17 at 17 :14; Status DC Morphine Sulfate (Morphine Inj) 4 mg ONCE ONCE IV PUSH Last administered on 17:21; Start 03/17/17 at 16:15; Stop 03/17/17 at 16:16; Status DC Ondansetron HCl (Zofran Inj) 4 mg ONCE ONCE IV PUSH Last administered on 03/17 16:15; Start 03/17/17 at 16:15; Stop 03/17/17 at 16:16; Status DC Piperacillin Sod/ Tazobactam Sod 100 ml @ 200 mls/hr ONCE ONCE IV Last administered on 03/17/17 19:09; Start 03/17/17 at 17:30; Stop 03/17/17 at 17 :59; Status DC Sodium Chloride 1,000 ml @ 1,000 mls/hr Q1H ONCE IV Last administered on 03/17 17:20; Start 03/17/17 at 17:20; Stop 03/17/17 at 18:19; Status DC Sodium Chloride 1,000 ml @ 1,000 mls/hr Q1H ONCE IV Last administered on 03/17 17:20; Start 03/17/17 at 17:20; Stop 03/17/17 at 18:19; Status DC Sodium Chloride 100 ml @ 1,000 mls/hr Q6M ONCE IV Last administered on 19:56; Start 03/17/17 at 17:20; Stop 03/17/17 at 17:25; Status DC Pharmacy Profile Note 0 ml @ 0 mls/hr UNSCH OTHER ; Start 03/17/17 at 19:30; Stop 03/21/17 at 09:47; Status DC Folic Acid (Folate) 1 mg DAILY PO Last administered on 03/22/17 08:33; Start 03/18/17 at 09:00; Stop 03/23/17 at 08:59; Status DC Thiamine HCl (Vitamin B1) 100 mg DAILY PO Last administered on 03/26/17 08:54 ; Start 03/18/17 at 09:00 Multivitamins/ Minerals Therapeutic (Theragran M Tab) 1 tab DAILY PO Last administered on 03/22/17 08:33; Start 03/18/17 at 09:00; Stop 03/23/17 at 08 :59; Status DC Flumazenil (Romazicon Inj) 0.2 mg Q1M PRN IV PUSH SEE LABEL COMMENTS; Start at 19:30 Lorazepam (Ativan) 1 mg Q4H PRN PO CIWA 8 - 10; Start 03/17/17 at 19:30 Lorazepam (Ativan Inj) 1 mg Q4H PRN IV PUSH CIWA 8 - 10; Start 03/17/17 at 19: 30 Lorazepam (Ativan) 2 mg Q2H PRN PO CIWA 11-14; Start 03/17/17 at 19:30 Lorazepam (Ativan Inj) 2 mg Q2H PRN IV PUSH CIWA 11-14; Start 03/17/17 at 19: 30 Lorazepam (Ativan Inj) 2 mg Q1H PRN IV PUSH CIWA 15-20; Start 03/17/17 at 19: 30 Lorazepam (Ativan Inj) 2 mg Q15M PRN IV PUSH CIWA > 20; Start 03/17/17 at 19: 30 Haloperidol Lactate (Haldol Inj) 2 mg Q15M PRN IM SEE LABEL COMMENTS; Start at 19:30 Piperacillin Sod/ Tazobactam Sod 100 ml @ 200 mls/hr Q6H IV Last administered on 03/21/17 05:26; Start 03/18/17 at 00:00; Stop 03/21/17 at 09:47; Status DC Sodium Chloride 1,000 ml @ 100 mls/hr Q10H IV Last administered on 03/24/17 01:21; Start 03/17/17 at 19:21; Status Future Hold Sodium Chloride (NS Flush) 2 ml UNSCH PRN IV FLUSH FLUSH AFTER USING IV ACCESS Last administered on 03/26/17 01:35; Start 03/17/17 at 19:30 Sodium Chloride (NS Flush) 2 ml BID IV FLUSH Last administered on 03/26/17 08 :55; Start 03/17/17 at 21:00 Ondansetron HCl (Zofran Inj) 4 mg Q6H PRN IVP NAUSEA OR VOMITING; Start at 19:30 Heparin Sodium (Porcine) (Heparin Inj) 5,000 units Q12H SQ Last administered on 03/26/17 08:52; Start 03/18/17 at 09:00 Acetaminophen (Tylenol) 650 mg Q6H PRN PO FEVER/PAIN SCALE 1 TO 2 Last administered on 03/26/17 08:53; Start 03/17/17 at 19:30 Oxycodone HCl (Roxicodone) 10 mg Q4H PRN PO PAIN SCALE 6 TO 10 Last administered on 03/26/17 06:46; Start 03/17/17 at 19:30 Oxycodone HCl (Roxicodone) 5 mg Q4H PRN PO PAIN SCALE 3 TO 5 Last administered on 03/21/17 22:55; Start 03/17/17 at 19:30 Senna/Docusate Sodium (Heena-Colace) 1 tab BID PO Last administered on 08:53; Start 03/17/17 at 21:00 Magnesium Hydroxide (Milk Of Magnesia Liq) 30 ml Q12H PRN PO Mild constipation ; Start 03/17/17 at 19:30 Sennosides (Senokot) 17.2 mg Q12H PRN PO Moderate constipation; Start at 19:30 Bisacodyl (Dulcolax Supp) 10 mg DAILY PRN RECTAL SEVERE CONSITIPATION; Start 03/17/17 at 19:30 Lactulose (Lactulose Liq) 30 ml DAILY PRN PO SEVERE CONSITIPATION; Start 03/17 at 19:30 Metoprolol Tartrate (Lopressor Inj) 5 mg ONCE ONCE IV PUSH Last administered on 03/17/17 20:26; Start 03/17/17 at 20:15; Stop 03/17/17 at 20:19; Status DC Vancomycin HCl 1000 mg/Sodium Chloride 250 ml @ 250 mls/hr Q12H IV Last administered on 03/21/17 06:06; Start 03/18/17 at 06:00; Stop 03/21/17 at 09 :47; Status DC Miscellaneous Information SPECIFIC LAB TO BE JC... ONCE ONCE .XX ; Start at 05:45; Stop 03/19/17 at 05:49; Status DC Clonidine (Catapres) 0.1 mg ONCE ONCE PO Last administered on 03/18/17 01:02 ; Start 03/18/17 at 00:45; Stop 03/18/17 at 00:49; Status DC Clonidine (Catapres) 0.1 mg Q6H PRN PO SEE LABEL COMMENTS Last administered on 03/26/17 08:55; Start 03/18/17 at 01:00 Pneumococcal Polyvalent Vaccine (Pneumovax-23 Inj) 25 mcg ONCE ONCE IM Last administered on 03/18/17 11:32; Start 03/18/17 at 09:00; Stop 03/18/17 at 09 :01; Status DC Influenza Virus Vaccine (Flu (Quadrivalent) Vaccine Inj) 0.5 ml ONCE ONCE IM Last administered on 03/18/17 11:30; Start 03/18/17 at 09:00; Stop 03/18/17 at 09:01; Status DC Potassium Chloride (KCl) 40 meq ONCE ONCE PO Last administered on 03/18/17 11:26; Start 03/18/17 at 11:00; Stop 03/18/17 at 11:16; Status DC Carvedilol (Coreg) 3.125 mg BID PO Last administered on 03/19/17 09:00; Start 03/18/17 at 11:30; Stop 03/19/17 at 11:46; Status DC Pantoprazole Sodium (Protonix) 40 mg DAILY PO Last administered on 03/26/17 08:53; Start 03/19/17 at 09:00 Lisinopril (Prinivil) 5 mg DAILY PO Last administered on 03/19/17 08:59; Start 03/18/17 at 12:30; Stop 03/19/17 at 11:46; Status DC Enalaprilat (Vasotec Inj) 1.25 mg Q6H PRN IV PUSH bp>160/90 Last administered on 03/26/17 01:35; Start 03/18/17 at 12:30 Sodium Chloride 1,000 ml @ 999 mls/hr BOLUS ONCE IV Last administered on 15:42; Start 03/18/17 at 14:30; Stop 03/18/17 at 15:30; Status DC Lisinopril (Prinivil) 40 mg DAILY PO Last administered on 03/26/17 08:55; Start 03/20/17 at 09:00 Carvedilol (Coreg) 6.25 mg Q12HR PO Last administered on 03/26/17 08:55; Start 03/19/17 at 21:00 Hydralazine HCl (Apresoline Inj) 20 mg ONCE ONCE IV PUSH Last administered on 03/19/17 12:35; Start 03/19/17 at 11:45; Stop 03/19/17 at 11:59; Status DC Lisinopril (Prinivil) 40 mg DAILY PO ; Start 03/20/17 at 09:00; Status UNV Lactobacillus Acidophilus (Lactinex) 1 tab TID PO Last administered on 08:53; Start 03/19/17 at 13:00 Lisinopril (Prinivil) 40 mg ONCE STAT PO ; Start 03/19/17 at 12:45; Stop at 12:53; Status DC Carvedilol (Coreg) 3.125 mg ONCE STAT PO ; Start 03/19/17 at 12:45; Stop at 12:53; Status DC Miscellaneous Information SPECIFIC LAB TO BE JC... ONCE ONCE .XX Last administered on 03/21/17 05:45; Start 03/21/17 at 05:45; Stop 03/21/17 at 05 :46; Status DC Potassium Chloride (KCl) 40 meq ONCE ONCE PO Last administered on 03/19/17 15:08; Start 03/19/17 at 14:45; Stop 03/19/17 at 14:46; Status DC Dextrose (D50w (Vial) Inj) 50 ml UNSCH PRN IV PUSH HYPOGLYCEMIA - SEE COMMENTS ; Start 03/19/17 at 17:30 Glucagon (Glucagon Inj) 1 mg UNSCH PRN OTHER HYPOGLYCEMIA-SEE COMMENTS; Start 03/19/17 at 17:30 Insulin Aspart (NovoLOG SUPPLEMENTAL SCALE) 1 ACHS SLIDING SCALE SQ Last administered on 03/19/17 21:00; Start 03/19/17 at 17:21 Magnesium Sulfate/ Dextrose 100 ml @ 100 mls/hr ONCE ONCE IV Last administered on 03/19/17 17:56; Start 03/19/17 at 17:45; Stop 03/19/17 at 18 :44; Status DC Iohexol (Omnipaque 350 Inj) 100 ml STK-MED ONCE IVCONTRAST Last administered on 03/19/17 19:00; Start 03/19/17 at 19:00; Stop 03/19/17 at 19:01; Status DC Magnesium Sulfate/ Dextrose 100 ml @ 100 mls/hr ONCE ONCE IV Last administered on 03/20/17 09:39; Start 03/20/17 at 09:00; Stop 03/20/17 at 09 :59; Status DC Potassium Chloride (KCl) 30 meq ONCE ONCE PO Last administered on 03/21/17 08:30; Start 03/21/17 at 08:30; Stop 03/21/17 at 08:36; Status DC Ampicillin Sodium/ Sulbactam Sodium 3 gm/Sodium Chloride 100 ml @ 200 mls/hr Q6H IV Last administered on 03/21/17 22:00; Start 03/21/17 at 10:00; Stop 03/22/17 at 14:33; Status DC Lactated Ringer's 1,000 ml @ 30 mls/hr Q24H PRN IV SEE LABEL COMMENTS; Start 03/22/17 at 05:45; Stop 03/25/17 at 05:44; Status DC Povidone Iodine (Betadine 5% Antisepsis Kit) 1 applic ECONOMIC DEVELOPMENT COORDINATOR PRN EACH NARE SEE LABEL COMMENTS; Start 03/22/17 at 05:45; Stop 03/25/17 at 05:44; Status DC Chlorhexidine Gluconate (Chlorhexidine 2% Cloth) 3 pack ECONOMIC DEVELOPMENT COORDINATOR PRN TOPICAL SEE LABEL COMMENTS; Start 03/22/17 at 05:45; Stop 03/25/17 at 05:44; Status DC Heparin Sodium (Porcine) (Heparin Inj) 10,000 units STK-MED ONCE .ROUTE ; Start 03/22/17 at 07:51; Stop 03/22/17 at 07:52; Status DC Protamine Sulfate (Protamine Sulfate Inj) 50 mg STK-MED ONCE .ROUTE ; Start at 07:51; Stop 03/22/17 at 07:52; Status DC Cefazolin Sodium/ Dextrose 50 ml @ As Directed STK-MED ONCE .ROUTE Last administered on 03/22/17 11:18; Start 03/22/17 at 09:59; Stop 03/22/17 at 10 :00; Status DC Bupivacaine HCl/ Epinephrine Bitart (Sensorcaine-Epinephrine Pf 0.5% Inj) 30 ml STK-MED ONCE .ROUTE ; Start 03/22/17 at 09:59; Stop 03/22/17 at 10:00; Status DC Thrombin (Thrombin Top [place]) 20,000 units STK-MED ONCE .ROUTE ; Start at 10:08; Stop 03/22/17 at 10:09; Status DC Heparin Sodium/ Sodium Chloride 500 ml @ As Directed STK-MED ONCE .ROUTE Last administered on 03/22/17 10:08; Start 03/22/17 at 10:08; Stop 03/22/17 at 10 :09; Status DC Morphine Sulfate (*morphine INJ PERIprocedure ONLY) 8 mg STK-MED ONCE .ROUTE Last administered on 03/22/17 13:33; Start 03/22/17 at 13:33; Stop 03/22/17 at 13:34; Status DC Morphine Sulfate (*morphine INJ PERIprocedure ONLY) 8 mg STK-MED ONCE .ROUTE Last administered on 03/22/17 13:49; Start 03/22/17 at 13:49; Stop 03/22/17 at 13:50; Status DC Miscellaneous Information ALL NURSING DEPARTME... UNSCH PRN .XX SEE LABEL COMMENTS; Start 03/22/17 at 13:15; Stop 03/23/17 at 13:14; Status DC Ampicillin Sodium/ Sulbactam Sodium 3 gm/Sodium Chloride 100 ml @ 200 mls/hr Q6H IV Last administered on 03/26/17 08:56; Start 03/22/17 at 15:00 Potassium Chloride (KCl) 40 meq ONCE ONCE PO Last administered on 03/23/17 12:21; Start 03/23/17 at 11:00; Stop 03/23/17 at 11:01; Status DC Nifedipine (Procardia Xl) 30 mg NOW ONCE PO Last administered on 03/23/17 17 :32; Start 03/23/17 at 17:30; Stop 03/23/17 at 17:31; Status DC Clonidine (Catapres) 0.1 mg ONCE ONCE PO Last administered on 03/23/17 18:42 ; Start 03/23/17 at 18:30; Stop 03/23/17 at 18:31; Status DC Clopidogrel Bisulfate (Plavix) 75 mg DAILY PO Last administered on 03/26/17 08:54; Start 03/25/17 at 09:00 Nicotine (Habitrol 14 Mg Patch.24 Hr) 1 patch DAILY T-DERMAL Last administered on 03/25/17 13:41; Start 03/25/17 at 12:30 Miscellaneous Information 1 HS T-DERMAL ; Start 03/25/17 at 21:00 Magnesium Sulfate/ Dextrose 100 ml @ 100 mls/hr Q1H IV Last administered on 10:03; Start 03/26/17 at 09:30; Stop 03/26/17 at 11:29 Potassium Bicarb/ Potassium Chloride (K-Lyte Cl Eff) 50 meq ONCE ONCE PO Last administered on 03/26/17 10:03; Start 03/26/17 at 09:30; Stop 03/26/17 at 09:35; Status DC A/P Problem List: (1) Cellulitis of leg, right ICD Code: L03.115 - Cellulitis of right lower limb (2) UTI (urinary tract infection) ICD Code: N39.0 - Urinary tract infection, site not specified (3) HTN (hypertension) ICD Code: I10 - Essential (primary) hypertension (4) Alcohol abuse ICD Code: F10.10 - Alcohol abuse, uncomplicated (5) Tobacco abuse ICD Code: Z72.0 - Tobacco use Status: Chronic Assessment and Plan Assessment and Plan A/P Right lower extremity cellulitis with sepsis with gangrene-culture growing group a beta Streptococcus, MSSA, . switched to IV Unasyn- ID and wound care following. will switch to po Augmentin upon discharge- ID f/u appreciated. Peripheral arterial disease- s/p External iliac endarterectomy, femoral-popliteal bypass and popliteal endarterectomy. ( 03/22/17) management per vascular surgery. anemia- likely acute on [id number]; H/H stable. will monitor H/H for now. right subclavian artery stenosis with steal phenomenon- vascular surgery f/u appreciated and no intervention at this time. Hypertensive urgency-resolved, continue Coreg, lisinopril, clonidine and Vasotec as needed, Diabetes mellitus-status scale insulin with Accu-Cheks Alcohol and tobacco abuse-watch out for withdrawal, CIWA protocol, thiamine, folate and multivitamins. Hypomagnesemia-replaced. Hypokalemia; replaced. hyponatremia;improved- will monitor. right adrenal mass- f/u as outpatient. DVT prophylaxis: Heparin A.m. labs Continue current wound care Case management consult AM LABS IF BETTER TOMORROW POSSIBLE DC IN NEXT 24-48 HOURS Discharge Planning Case management consult Continue physical therapy occupational therapy Erickson Eng DO Mar 26, 2017 11:01
[2017-03-26 12:37] LABS: HEMOGLOBIN A1a 1.3 %; HEMOGLOBIN A1b 0.7 %; HEMOGLOBIN Ao 84.6 %; HEMOGLOBIN F 1.4 %; HEMOGLOBIN LA1C 2.2 %; HEMOGLOBIN P3 3.9 %
[2017-03-26] MEDS: REMOVE OLD PATCH T-DERMAL SCH (20:08)
[2017-03-27] VITALS (11 sets, daily range): BP systolic 72–176; BP diastolic 50–83; PULSE 77–99; RESP 16–20; TEMP 98.3–100.3; O2SAT 94–100
[2017-03-27] MEDS ORDERED: PANTOPRAZOLE INJ 80 MG in SODIUM CHLORIDE 0.9% INJ 35 ML IV ONE (00:45)
[2017-03-27] MEDS: PANTOPRAZOLE INJ 80 MG in SODIUM CHLORIDE 0.9% INJ 100 ML IV SCH (00:54)
[2017-03-27 01:21] LABS: AUTOMATED NEUTROPHIL # 4.4 TH/MM3 (1.8-7.7); BASOPHIL # 0.1 TH/MM3 (0-0.2); BASOPHIL % 0.9 % (0.0-2.0); EOSINOPHIL # 0.1 TH/MM3 (0-0.4); EOSINOPHIL % 1.3 % (0.0-4.0); HEMATOCRIT 23.4 % (35.0-46.0); HEMO FLAGS DIFF FINAL; LYMPH % 25.1 % (9.0-44.0); LYMPHOCYTE # 1.7 TH/MM3 (1.0-4.8); MEAN CELL VOLUME 88.5 FL (80.0-100.0); MEAN CORPUSCULAR HEMOGLOBIN 29.8 PG (27.0-34.0); MEAN CORPUSCULAR HGB CONC 33.7 % (32.0-36.0); MONO % 8.6 % (0.0-8.0); NEUT % 64.1 % (16.0-70.0); PLATELET COUNT 185 TH/MM3 (150-450); RED BLOOD COUNT 2.65 MIL/MM3 (4.00-5.30); RED CELL DISTRIBUTION WIDTH 20.2 % (11.6-17.2); WHITE BLOOD COUNT 6.9 TH/MM3 (4.0-11.0)
[2017-03-27 01:47] LABS: ANION GAP 8 MEQ/L (5-15); AST (GOT) 23 U/L (15-37); BICARBONATE 28.1 MEQ/L (21.0-32.0); BLOOD UREA NITROGEN 11 MG/DL (7-18); CHLORIDE 97 MEQ/L (98-107); GLOMERULAR FILTRATION RATE 96 ML/MIN (>89); POTASSIUM 3.5 MEQ/L (3.5-5.1); SODIUM (NA) 133 MEQ/L (136-145)
[2017-03-27 01:50] LABS: ALKALINE PHOSPHATASE 68 U/L (45-117); ALT (GPT) 13 U/L (10-53); TOTAL BILIRUBIN ADULT 0.2 MG/DL (0.2-1.0)
[2017-03-27] MEDS: AMPICILLIN-SULBACTAM INJ 3 GM in SODIUM CHLORIDE 0.9% INJ 100 ML IV SCH ×4 (03:08→20:06)
--- NOTE | 2017-03-27 05:46 | HHI.PR ---
Addendum To [facility] Progress Not Reason for addendum: Additonal documentation ([facility] called shortly before 0100 secondary to GI bleed. Protonix bolus and drip ordered. Labs ordered. Hgb evidenced decrease from that earlier in the day. I unit of blood ordered. GI consult placed. Pt did evidence some hypothension over the course of the evening yet seemed to rebound as blood was administered. Dr. Loco [facility], updated at 0131 and again at 0501.) Alberto Grullon Jr. MARY Mar 27, 2017 05:46
[2017-03-27 08:56] LABS: BASOPHIL % 0.4 % (0.0-2.0); EOSINOPHIL # 0.1 TH/MM3 (0-0.4); EOSINOPHIL % 1.1 % (0.0-4.0); HEMATOCRIT 26.5 % (35.0-46.0); HEMO FLAGS DIFF FINAL; LYMPH % 20.8 % (9.0-44.0); LYMPHOCYTE # 1.6 TH/MM3 (1.0-4.8); MEAN CELL VOLUME 90.3 FL (80.0-100.0); MEAN CORPUSCULAR HEMOGLOBIN 31.1 PG (27.0-34.0); MEAN CORPUSCULAR HGB CONC 34.4 % (32.0-36.0); MONO % 11.7 % (0.0-8.0); PLATELET COUNT 168 TH/MM3 (150-450); RED BLOOD COUNT 2.94 MIL/MM3 (4.00-5.30); RED CELL DISTRIBUTION WIDTH 18.4 % (11.6-17.2); WHITE BLOOD COUNT 7.5 TH/MM3 (4.0-11.0)
[2017-03-27 09:17] LABS: ALT (GPT) 13 U/L (10-53); ANION GAP 8 MEQ/L (5-15); AST (GOT) 24 U/L (15-37); BICARBONATE 27.9 MEQ/L (21.0-32.0); BLOOD UREA NITROGEN 10 MG/DL (7-18); CHLORIDE 97 MEQ/L (98-107); GLOMERULAR FILTRATION RATE 109 ML/MIN (>89); MAGNESIUM 1.8 MG/DL (1.5-2.5); POTASSIUM 3.4 MEQ/L (3.5-5.1); SODIUM (NA) 133 MEQ/L (136-145)
[2017-03-27 09:20] LABS: ALKALINE PHOSPHATASE 64 U/L (45-117); TOTAL BILIRUBIN ADULT 0.7 MG/DL (0.2-1.0)
[2017-03-27] MEDS: NICOTINE 14 MG/24 HR PATCH T-DERMAL SCH (09:59)
[2017-03-27] MEDS: LOW DOSE INSULIN NOVOLOG SUPPLEMENTAL SCALE SQ SCH ×4 (09:59→20:09)
[2017-03-27] MEDS: LACTOBACILLUS ACIDOPHILUS TAB PO SCH ×3 (10:00→18:30)
[2017-03-27] MEDS: CLOPIDOGREL 75 MG TAB PO SCH (10:00)
[2017-03-27] MEDS: CARVEDILOL 6.25 MG TAB PO SCH ×2 (10:00→20:05)
[2017-03-27] MEDS: THIAMINE HCL 100 MG TAB PO SCH (10:01)
[2017-03-27] MEDS: LISINOPRIL 20 MG TAB PO SCH (10:01)
[2017-03-27] MEDS: SODIUM CHLORIDE 0.9% FLUSH 10 ML FLUSH IV FLUSH SCH ×2 (10:02→20:06)
[2017-03-27] MEDS: DOCUSATE SODIUM 50 MG/SENNA 8.6 MG TAB PO SCH ×2 (10:02→20:05)
--- NOTE | 2017-03-27 11:21 | PD.CONS ---
HPI History of Present Illness This is a 56 year old homeless female who presented to the ED for evaluation of right lower extremity cellulitis. PMH significant for chronic alcohol and tobacco abuse, and hypertension. GI was consulted for GIB. Patient reports 2 day history of bright red blood from rectum. Has never had colonoscopy. Reports she has never had similar episode of symptoms. Does report decreased appetite. HH 9.1/26.5 today. (Valorie Dueks) PFSH Past Medical History -HTN -Alcohol Abuse and Tobacco Abuse Past Surgical History None reported. (Valorie Dukes) Coded Allergies: lactose (Verified Adverse Reaction, Severe, Diarrhea, 03/17/17) orange juice (Verified Adverse Reaction, Severe, Cramping, 03/17/17) Medications Current Medications Medications (Trade) Dose Ordered Sig/Ruma Route PRN Reason Start Time Stop Time Status Last Admin Dose Admin Thiamine HCl (Vitamin B1) 100 mg DAILY PO 03/18/17 09:00 03/27/17 10:01 Flumazenil (Romazicon Inj) 0.2 mg Q1M PRN IV PUSH SEE LABEL COMMENTS 03/17/17 19:30 Lorazepam (Ativan) 1 mg Q4H PRN PO CIWA 8 - 10 03/17/17 19:30 Lorazepam (Ativan Inj) 1 mg Q4H PRN IV PUSH CIWA 8 - 10 03/17/17 19:30 Lorazepam (Ativan) 2 mg Q2H PRN PO CIWA 11-14 03/17/17 19:30 Lorazepam (Ativan Inj) 2 mg Q2H PRN IV PUSH CIWA 11-14 03/17/17 19:30 Lorazepam (Ativan Inj) 2 mg Q1H PRN IV PUSH CIWA 15-20 03/17/17 19:30 Lorazepam (Ativan Inj) 2 mg Q15M PRN IV PUSH CIWA > 20 03/17/17 19:30 Haloperidol Lactate (Haldol Inj) 2 mg Q15M PRN IM SEE LABEL COMMENTS 03/17/17 19:30 Sodium Chloride 1,000 ml @ 100 mls/hr Q10H IV 03/17/17 19:21 Future Hold 03/24/17 01:21 Sodium Chloride (NS Flush) 2 ml UNSCH PRN IV FLUSH FLUSH AFTER USING IV ACCESS 03/17/17 19:30 03/26/17 01:35 Sodium Chloride (NS Flush) 2 ml BID IV FLUSH 03/17/17 21:00 03/27/17 10:02 Ondansetron HCl (Zofran Inj) 4 mg Q6H PRN IVP NAUSEA OR VOMITING 03/17/17 19:30 Heparin Sodium (Porcine) (Heparin Inj) 5,000 units Q12H SQ 03/18/17 09:00 Future Hold 03/26/17 19:48 Acetaminophen (Tylenol) 650 mg Q6H PRN PO FEVER/PAIN SCALE 1 TO 2 03/17/17 19:30 03/26/17 08:53 Oxycodone HCl (Roxicodone) 10 mg Q4H PRN PO PAIN SCALE 6 TO 10 03/17/17 19:30 03/26/17 06:46 Oxycodone HCl (Roxicodone) 5 mg Q4H PRN PO PAIN SCALE 3 TO 5 03/17/17 19:30 03/21/17 22:55 Senna/Docusate Sodium (Heena-Colace) 1 tab BID PO 03/17/17 21:00 03/26/17 19:47 Magnesium Hydroxide (Milk Of Magnesia Liq) 30 ml Q12H PRN PO Mild constipation 03/17/17 19:30 Sennosides (Senokot) 17.2 mg Q12H PRN PO Moderate constipation 03/17/17 19:30 Bisacodyl (Dulcolax Supp) 10 mg DAILY PRN RECTAL SEVERE CONSITIPATION 03/17/17 19:30 Lactulose (Lactulose Liq) 30 ml DAILY PRN PO SEVERE CONSITIPATION 03/17/17 19:30 Clonidine (Catapres) 0.1 mg Q6H PRN PO SEE LABEL COMMENTS 03/18/17 01:00 03/26/17 08:55 Enalaprilat (Vasotec Inj) 1.25 mg Q6H PRN IV PUSH bp>160/90 03/18/17 12:30 03/26/17 01:35 Lisinopril (Prinivil) 40 mg DAILY PO 03/20/17 09:00 03/27/17 10:01 Carvedilol (Coreg) 6.25 mg Q12HR PO 03/19/17 21:00 03/27/17 10:00 Lactobacillus Acidophilus (Lactinex) 1 tab TID PO 03/19/17 13:00 03/27/17 10:00 Dextrose (D50w (Vial) Inj) 50 ml UNSCH PRN IV PUSH HYPOGLYCEMIA - SEE COMMENTS 03/19/17 17:30 Glucagon (Glucagon Inj) 1 mg UNSCH PRN OTHER HYPOGLYCEMIA-SEE COMMENTS 03/19/17 17:30 Insulin Aspart (NovoLOG SUPPLEMENTAL SCALE) 1 ACHS SLIDING SCALE SQ 03/19/17 17:21 03/26/17 12:35 Ampicillin Sodium/ Sulbactam Sodium 3 gm/Sodium Chloride 100 ml @ 200 mls/hr Q6H IV 03/22/17 15:00 03/27/17 10:02 Clopidogrel Bisulfate (Plavix) 75 mg DAILY PO 03/25/17 09:00 03/27/17 10:00 Nicotine (Habitrol 14 Mg Patch.24 Hr) 1 patch DAILY T-DERMAL 03/25/17 12:30 03/27/17 09:59 Miscellaneous Information 1 HS T-DERMAL 03/25/17 21:00 Pantoprazole Sodium 80 mg/ Sodium Chloride 100 ml @ 10 mls/hr CONTINUOUS IV 03/27/17 00:45 03/27/17 00:54 Family History Noncontributory Social History ETOH, drinks daily, 3-4 beers/day Tobacco, 1/2ppd Illicit Drugs, denies (Valorie Dukes) Review of Systems Constitutional: COMPLAINS OF: Change in appetite Gastrointestinal: COMPLAINS OF: Bloody stools, DENIES: Black stools, Constipation, Nausea, Vomiting, Difficulty Swallowing, Anorexia, Odynophagia, Swelling of Abdomen, Heartburn, Hematemesis (Valorie Dukes) GI Exam Vitals I&O Vital Signs Date Time Temp Pulse Resp B/P (MAP) Pulse Ox O2 Delivery O2 Flow Rate FiO2 03/27/17 08:00 98.8 91 17 106/64 (78) 98 03/27/17 06:35 99.3 84 20 104/63 99 03/27/17 04:58 86/53 (64) 03/27/17 04:23 99.9 94 18 86/52 96 03/27/17 04:08 100.3 90 20 87/50 100 03/27/17 04:00 100.0 94 18 72/51 (58) 94 03/27/17 00:40 98.3 85 20 129/70 (89) 95 03/27/17 00:40 97 21 03/27/17 00:17 99.1 99 17 98/55 (69) 96 03/26/17 20:02 99.0 91 17 151/77 (101) 94 03/26/17 16:00 98.3 71 16 161/78 (105) 96 03/26/17 12:00 97.5 75 18 118/60 (79) 96 I/O 03/26/17 03/26/17 03/26/17 03/27/17 03/27/17 03/27/17 07:00 15:00 23:00 07:00 15:00 23:00 Intake Total 820 ml 300 ml 960 ml 815 ml Output Total 1 ml Balance 819 ml 300 ml 960 ml 815 ml Intake Oral 720 ml 760 ml 280 ml IV Total 100 ml 300 ml 200 ml 135 ml Packed Cells 400 ml Stool Total 1 ml # Voids 2 4 3 # Bowel Movements 2 2 Imaging Last Impressions Carotid Artery Ultrasound 03/19/17 0000 Signed Impressions: Service Date/Time: Sunday, March 19, 2017 17:35 - CONCLUSION: 1. Mild patchy atherosclerosis of both carotids. No hemodynamically significant narrowing. 2. Retrograde flow within the right vertebral artery suggesting a right subclavian artery stenosis with steal phenomenon. Trevor Young MD Aorta w/Runoff CTA 03/19/17 0000 Signed Impressions: Service Date/Time: Sunday, March 19, 2017 18:47 - CONCLUSION: 1. No significant aortic stenosis or iliac inflow disease. 2. Extensive bilateral SFA disease and moderate bilateral above-knee popliteal artery disease, as above. Patient would likely benefit from outflow intervention. 3. Bulky plaque at the origin of the anterior tibial arteries bilaterally and right tibioperoneal trunk. Otherwise, three-vessel runoff to the foot. 4. 1.6 cm indeterminate right adrenal mass. This can be further evaluated with adrenal mass protocol CT or MRI exam on an outpatient basis as clinically warranted. Gautam Alba MD Lower Extremity Ultrasound 03/18/17 0000 Signed Impressions: Service Date/Time: Saturday, March 18, 2017 12:49 - CONCLUSION: Negative exam with no evidence of abscess. Gonsalo Burris MD Tibia/Fibula X-Ray 03/17/17 0000 Signed Impressions: Service Date/Time: March 17:36 - CONCLUSION: 1. No acute bony abnormality identified. Jj Rolle MD Laboratory Test 03/27/17 01:00 03/27/17 08:33 White Blood Count 6.9 TH/MM3 7.5 TH/MM3 Red Blood Count 2.65 MIL/MM3 2.94 MIL/MM3 Hemoglobin 7.9 GM/DL 9.1 GM/DL Hematocrit 23.4 % 26.5 % Mean Corpuscular Volume 88.5 FL 90.3 FL Mean Corpuscular Hemoglobin 29.8 PG 31.1 PG Mean Corpuscular Hemoglobin Concent 33.7 % 34.4 % Red Cell Distribution Width 20.2 % 18.4 % Platelet Count 185 TH/MM3 168 TH/MM3 Mean Platelet Volume 7.1 FL 6.9 FL Neutrophils (%) (Auto) 64.1 % 66.0 % Lymphocytes (%) (Auto) 25.1 % 20.8 % Monocytes (%) (Auto) 8.6 % 11.7 % Eosinophils (%) (Auto) 1.3 % 1.1 % Basophils (%) (Auto) 0.9 % 0.4 % Neutrophils # (Auto) 4.4 TH/MM3 5.0 TH/MM3 Lymphocytes # (Auto) 1.7 TH/MM3 1.6 TH/MM3 Monocytes # (Auto) 0.6 TH/MM3 0.9 TH/MM3 Eosinophils # (Auto) 0.1 TH/MM3 0.1 TH/MM3 Basophils # (Auto) 0.1 TH/MM3 0.0 TH/MM3 CBC Comment DIFF FINAL DIFF FINAL Differential Comment Blood Urea Nitrogen 11 MG/DL 10 MG/DL Creatinine 0.76 MG/DL 0.68 MG/DL Random Glucose 115 MG/DL 87 MG/DL Total Protein 7.7 GM/DL 8.0 GM/DL Albumin 1.7 GM/DL 1.8 GM/DL Calcium Level 8.1 MG/DL 8.0 MG/DL Alkaline Phosphatase 68 U/L 64 U/L Aspartate Amino Transf (AST/SGOT) 23 U/L 24 U/L Alanine Aminotransferase (ALT/SGPT) 13 U/L 13 U/L Total Bilirubin 0.2 MG/DL 0.7 MG/DL Sodium Level 133 MEQ/L 133 MEQ/L Potassium Level 3.5 MEQ/L 3.4 MEQ/L Chloride Level 97 MEQ/L 97 MEQ/L Carbon Dioxide Level 28.1 MEQ/L 27.9 MEQ/L Anion Gap 8 MEQ/L 8 MEQ/L Estimat Glomerular Filtration Rate 96 ML/MIN 109 ML/MIN Phosphorus Level 3.2 MG/DL Magnesium Level 1.8 MG/DL Date/Time Source Procedure Growth Status 03/19/17 21:00 Blood Peripheral Aerobic Blood Culture - Final NO GROWTH IN 5 DAYS Complete 03/19/17 21:00 Blood Peripheral Anaerobic Blood Culture - Final NO GROWTH IN 5 DAYS Complete 03/27/17 09:40 Stool Stool Stool Occult Blood (JULIO) Pending Received 03/17/17 17:00 Wound Leg Gram Stain - Final Complete 03/17/17 17:00 Wound Culture - Final Group A Beta Strep Proteus Mirabilis Staphylococcus Aureus Complete Physical Examination HEENT: Normocephalic; atraumatic; no jaundice. NECK: Neck is suppl CHEST: CTA CARDIAC: RRR with no murmur gallop or rubs. ABDOMEN: Soft, nondistended, nontender; no hepatosplenomegaly; bowel sounds are present in all four quadrants. EXTREMITIES: No clubbing, cyanosis, or edema. Right leg dressing SKIN: Normal; no rash; no jaundice. PHYSICIAN SPECIALIST: No focal deficits; alert and oriented times three. (Valorie Dukes) Assessment and Plan Plan ASSESSMENT: - GIB, bright red blood from rectum x 1-2 days. HH 9.1/26.5 today. Patient is s/ p 1 unit of PRBC 03/27 when her HH was noted to be 7.9/23.4 early this morning with GI bleed and hypotension. Patient states she has never had a colonoscopy and denies similar episodes of blood from rectum in the past. - Right lower extremity cellulitis, per attending. ID and wound care following. - PAD, s/p external iliac endarterectomy, femoral-popliteal bypass and popliteal endarterectomy (03/22/17). Vascular surgeon following. PLAN: - Colonoscopy on Tuesday - Obtain consents - Clear liquid diet today - NPO at [place] - Bowel prep today - Monitor HH, transfuse as necessary - Supportive care - Further recommendations to follow based on results of above Patient seen and examined by Dr. Garrett and myself and this note is written on his behalf. (Valorie Dukes) Physician Comments Seen and examined with [facility], Colonoscopy planned for tomorrow. Monitor labs. Plavix on hold. (Daniel Garrett MD) Valorie Dukes Mar 27, 2017 11:21 Daniel Garrett MD Mar 27, 2017 11:44
--- NOTE | 2017-03-27 11:37 | HHI.PR ---
Subjective Remarks resting comfortably with no distress. denies pain. no fever. BP improved. d/w the RN and no acute issues over night. 03-25 DW RN AND PT AND CM CORNELIO NEIL CONTINUE CURRENT CARE MONITOR TODAY 03-26 LESS PAIN RIGHT LEG HOPEFULLY HOME IN NEXT 24-48 HOURS AM LABS POSSIBLE HOMELESS REPLACE POTASSIUM AND MAGNESIUM 03-27 HAD MELENA LAST NIGHT THIS MORNING GI CONSULTED FOR EGD AND COLONOSCOPY TOMORROW WITH GI AM LABS HAS BEEN TRANSFUSED DW RN AND PT REPLACE POTASSIUM Objective Vitals Vital Signs Date Time Temp Pulse Resp B/P (MAP) Pulse Ox O2 Delivery O2 Flow Rate FiO2 03/27/17 08:00 98.8 91 17 106/64 (78) 98 03/27/17 06:35 99.3 84 20 104/63 99 03/27/17 04:58 86/53 (64) 03/27/17 04:23 99.9 94 18 86/52 96 03/27/17 04:08 100.3 90 20 87/50 100 03/27/17 04:00 100.0 94 18 72/51 (58) 94 03/27/17 00:40 98.3 85 20 129/70 (89) 95 03/27/17 00:40 97 21 03/27/17 00:17 99.1 99 17 98/55 (69) 96 03/26/17 20:02 99.0 91 17 151/77 (101) 94 03/26/17 16:00 98.3 71 16 161/78 (105) 96 03/26/17 12:00 97.5 75 18 118/60 (79) 96 I/O 03/26/17 03/26/17 03/26/17 03/27/17 03/27/17 03/27/17 06:59 14:59 22:59 06:59 14:59 22:59 Intake Total 820 ml 300 ml 960 ml 815 ml Output Total 1 ml Balance 819 ml 300 ml 960 ml 815 ml Intake Oral 720 ml 760 ml 280 ml IV Total 100 ml 300 ml 200 ml 135 ml Packed Cells 400 ml Stool Total 1 ml # Voids 2 4 3 # Bowel Movements 2 2 Result Diagram: 03/27/1783203/27/17832 Other Results Laboratory Tests Test 03/26/17 06:00 03/27/17 01:00 03/27/17 08:33 White Blood Count 6.3 TH/MM3 6.9 TH/MM3 7.5 TH/MM3 Red Blood Count 2.79 MIL/MM3 2.65 MIL/MM3 2.94 MIL/MM3 Hemoglobin 8.3 GM/DL 7.9 GM/DL 9.1 GM/DL Hematocrit 24.8 % 23.4 % 26.5 % Mean Corpuscular Volume 89.0 FL 88.5 FL 90.3 FL Mean Corpuscular Hemoglobin 29.7 PG 29.8 PG 31.1 PG Mean Corpuscular Hemoglobin Concent 33.4 % 33.7 % 34.4 % Red Cell Distribution Width 19.9 % 20.2 % 18.4 % Platelet Count 173 TH/MM3 185 TH/MM3 168 TH/MM3 Mean Platelet Volume 7.2 FL 7.1 FL 6.9 FL Neutrophils (%) (Auto) 55.0 % 64.1 % 66.0 % Lymphocytes (%) (Auto) 28.5 % 25.1 % 20.8 % Monocytes (%) (Auto) 13.5 % 8.6 % 11.7 % Eosinophils (%) (Auto) 2.6 % 1.3 % 1.1 % Basophils (%) (Auto) 0.4 % 0.9 % 0.4 % Neutrophils # (Auto) 3.5 TH/MM3 4.4 TH/MM3 5.0 TH/MM3 Lymphocytes # (Auto) 1.8 TH/MM3 1.7 TH/MM3 1.6 TH/MM3 Monocytes # (Auto) 0.9 TH/MM3 0.6 TH/MM3 0.9 TH/MM3 Eosinophils # (Auto) 0.2 TH/MM3 0.1 TH/MM3 0.1 TH/MM3 Basophils # (Auto) 0.0 TH/MM3 0.1 TH/MM3 0.0 TH/MM3 CBC Comment DIFF FINAL DIFF FINAL DIFF FINAL Differential Comment Blood Urea Nitrogen 10 MG/DL 11 MG/DL 10 MG/DL Creatinine 0.69 MG/DL 0.76 MG/DL 0.68 MG/DL Random Glucose 94 MG/DL 115 MG/DL 87 MG/DL Total Protein 7.9 GM/DL 7.7 GM/DL 8.0 GM/DL Albumin 1.9 GM/DL 1.7 GM/DL 1.8 GM/DL Calcium Level 8.3 MG/DL 8.1 MG/DL 8.0 MG/DL Phosphorus Level 3.3 MG/DL 3.2 MG/DL Magnesium Level 1.5 MG/DL 1.8 MG/DL Alkaline Phosphatase 64 U/L 68 U/L 64 U/L Aspartate Amino Transf (AST/SGOT) 22 U/L 23 U/L 24 U/L Alanine Aminotransferase (ALT/SGPT) 14 U/L 13 U/L 13 U/L Total Bilirubin 0.2 MG/DL 0.2 MG/DL 0.7 MG/DL Sodium Level 132 MEQ/L 133 MEQ/L 133 MEQ/L Potassium Level 2.8 MEQ/L 3.5 MEQ/L 3.4 MEQ/L Chloride Level 95 MEQ/L 97 MEQ/L 97 MEQ/L Carbon Dioxide Level 27.9 MEQ/L 28.1 MEQ/L 27.9 MEQ/L Anion Gap 9 MEQ/L 8 MEQ/L 8 MEQ/L Estimat Glomerular Filtration Rate 107 ML/MIN 96 ML/MIN 109 ML/MIN Hemoglobin A1c 5.2 % Free Thyroxine 1.64 NG/DL Thyroid Stimulating Hormone 3rd Gen 1.540 uIU/ML Imaging Last Impressions Carotid Artery Ultrasound 03/19/17 0000 Signed Impressions: Service Date/Time: Sunday, March 19, 2017 17:35 - CONCLUSION: 1. Mild patchy atherosclerosis of both carotids. No hemodynamically significant narrowing. 2. Retrograde flow within the right vertebral artery suggesting a right subclavian artery stenosis with steal phenomenon. Trevor Young MD Aorta w/Runoff CTA 03/19/17 0000 Signed Impressions: Service Date/Time: Sunday, March 19, 2017 18:47 - CONCLUSION: 1. No significant aortic stenosis or iliac inflow disease. 2. Extensive bilateral SFA disease and moderate bilateral above-knee popliteal artery disease, as above. Patient would likely benefit from outflow intervention. 3. Bulky plaque at the origin of the anterior tibial arteries bilaterally and right tibioperoneal trunk. Otherwise, three-vessel runoff to the foot. 4. 1.6 cm indeterminate right adrenal mass. This can be further evaluated with adrenal mass protocol CT or MRI exam on an outpatient basis as clinically warranted. Gautam Alba MD Lower Extremity Ultrasound 03/18/17 0000 Signed Impressions: Service Date/Time: Saturday, March 18, 2017 12:49 - CONCLUSION: Negative exam with no evidence of abscess. Gonsalo Burris MD Tibia/Fibula X-Ray 03/17/17 0000 Signed Impressions: Service Date/Time: March 17:36 - CONCLUSION: 1. No acute bony abnormality identified. Jj Rolle MD Objective Remarks GENERAL: Awake alert talkative and cooperative SKIN: Warm and dry. Right leg is dressed Steri-Strips in place HEAD: Atraumatic. Normocephalic. EYES: Pupils equal and round. No scleral icterus. No injection or drainage. EOMI ENT: No nasal bleeding or discharge. Mucous membranes pink and moist. Tongue is midline NECK: Trachea midline. No JVD. Supple CARDIOVASCULAR: Regular rate and rhythm. S1 and S2 no S3-S4 no heave or thrill or rub or gallop RESPIRATORY: No accessory muscle use. Clear to auscultation. Breath sounds equal bilaterally. GASTROINTESTINAL: Abdomen soft, non-tender, nondistended. Hepatic and splenic margins not palpable. MUSCULOSKELETAL: Extremities without clubbing, cyanosis, or edema. No obvious deformities. NEUROLOGICAL: Awake and alert. No obvious cranial nerve deficits. Motor grossly within normal limits. 4 out of 5 muscle strength in the arms and legs. Normal speech. Right lower extremity is dressed PSYCHIATRIC: Appropriate mood and affect; insight and judgment normal. Procedures External iliac endarterectomy, femoral-popliteal bypass and popliteal endarterectomy. Medications and IVs Current Medications Vancomycin HCl 1000 mg/Sodium Chloride 250 ml @ 250 mls/hr ONCE ONCE IV Last administered on 03/17/17 16:15; Start 03/17/17 at 16:15; Stop 03/17/17 at 17 :14; Status DC Morphine Sulfate (Morphine Inj) 4 mg ONCE ONCE IV PUSH Last administered on 17:21; Start 03/17/17 at 16:15; Stop 03/17/17 at 16:16; Status DC Ondansetron HCl (Zofran Inj) 4 mg ONCE ONCE IV PUSH Last administered on 03/17 16:15; Start 03/17/17 at 16:15; Stop 03/17/17 at 16:16; Status DC Piperacillin Sod/ Tazobactam Sod 100 ml @ 200 mls/hr ONCE ONCE IV Last administered on 03/17/17 19:09; Start 03/17/17 at 17:30; Stop 03/17/17 at 17 :59; Status DC Sodium Chloride 1,000 ml @ 1,000 mls/hr Q1H ONCE IV Last administered on 03/17 17:20; Start 03/17/17 at 17:20; Stop 03/17/17 at 18:19; Status DC Sodium Chloride 1,000 ml @ 1,000 mls/hr Q1H ONCE IV Last administered on 03/17 17:20; Start 03/17/17 at 17:20; Stop 03/17/17 at 18:19; Status DC Sodium Chloride 100 ml @ 1,000 mls/hr Q6M ONCE IV Last administered on 19:56; Start 03/17/17 at 17:20; Stop 03/17/17 at 17:25; Status DC Pharmacy Profile Note 0 ml @ 0 mls/hr UNSCH OTHER ; Start 03/17/17 at 19:30; Stop 03/21/17 at 09:47; Status DC Folic Acid (Folate) 1 mg DAILY PO Last administered on 03/22/17 08:33; Start 03/18/17 at 09:00; Stop 03/23/17 at 08:59; Status DC Thiamine HCl (Vitamin B1) 100 mg DAILY PO Last administered on 03/27/17 10:01 ; Start 03/18/17 at 09:00 Multivitamins/ Minerals Therapeutic (Theragran M Tab) 1 tab DAILY PO Last administered on 03/22/17 08:33; Start 03/18/17 at 09:00; Stop 03/23/17 at 08 :59; Status DC Flumazenil (Romazicon Inj) 0.2 mg Q1M PRN IV PUSH SEE LABEL COMMENTS; Start at 19:30 Lorazepam (Ativan) 1 mg Q4H PRN PO CIWA 8 - 10; Start 03/17/17 at 19:30 Lorazepam (Ativan Inj) 1 mg Q4H PRN IV PUSH CIWA 8 - 10; Start 03/17/17 at 19: 30 Lorazepam (Ativan) 2 mg Q2H PRN PO CIWA 11-14; Start 03/17/17 at 19:30 Lorazepam (Ativan Inj) 2 mg Q2H PRN IV PUSH CIWA 11-14; Start 03/17/17 at 19: 30 Lorazepam (Ativan Inj) 2 mg Q1H PRN IV PUSH CIWA 15-20; Start 03/17/17 at 19: 30 Lorazepam (Ativan Inj) 2 mg Q15M PRN IV PUSH CIWA > 20; Start 03/17/17 at 19: 30 Haloperidol Lactate (Haldol Inj) 2 mg Q15M PRN IM SEE LABEL COMMENTS; Start at 19:30 Piperacillin Sod/ Tazobactam Sod 100 ml @ 200 mls/hr Q6H IV Last administered on 03/21/17 05:26; Start 03/18/17 at 00:00; Stop 03/21/17 at 09:47; Status DC Sodium Chloride 1,000 ml @ 100 mls/hr Q10H IV Last administered on 03/24/17 01:21; Start 03/17/17 at 19:21; Status Future Hold Sodium Chloride (NS Flush) 2 ml UNSCH PRN IV FLUSH FLUSH AFTER USING IV ACCESS Last administered on 03/26/17 01:35; Start 03/17/17 at 19:30 Sodium Chloride (NS Flush) 2 ml BID IV FLUSH Last administered on 03/27/17 10 :02; Start 03/17/17 at 21:00 Ondansetron HCl (Zofran Inj) 4 mg Q6H PRN IVP NAUSEA OR VOMITING; Start at 19:30 Heparin Sodium (Porcine) (Heparin Inj) 5,000 units Q12H SQ Last administered on 03/26/17 19:48; Start 03/18/17 at 09:00; Status Future Hold Acetaminophen (Tylenol) 650 mg Q6H PRN PO FEVER/PAIN SCALE 1 TO 2 Last administered on 03/26/17 08:53; Start 03/17/17 at 19:30 Oxycodone HCl (Roxicodone) 10 mg Q4H PRN PO PAIN SCALE 6 TO 10 Last administered on 03/26/17 06:46; Start 03/17/17 at 19:30 Oxycodone HCl (Roxicodone) 5 mg Q4H PRN PO PAIN SCALE 3 TO 5 Last administered on 03/21/17 22:55; Start 03/17/17 at 19:30 Senna/Docusate Sodium (Heena-Colace) 1 tab BID PO Last administered on 19:47; Start 03/17/17 at 21:00 Magnesium Hydroxide (Milk Of Magnesia Liq) 30 ml Q12H PRN PO Mild constipation ; Start 03/17/17 at 19:30 Sennosides (Senokot) 17.2 mg Q12H PRN PO Moderate constipation; Start at 19:30 Bisacodyl (Dulcolax Supp) 10 mg DAILY PRN RECTAL SEVERE CONSITIPATION; Start 03/17/17 at 19:30 Lactulose (Lactulose Liq) 30 ml DAILY PRN PO SEVERE CONSITIPATION; Start 03/17 at 19:30 Metoprolol Tartrate (Lopressor Inj) 5 mg ONCE ONCE IV PUSH Last administered on 03/17/17 20:26; Start 03/17/17 at 20:15; Stop 03/17/17 at 20:19; Status DC Vancomycin HCl 1000 mg/Sodium Chloride 250 ml @ 250 mls/hr Q12H IV Last administered on 03/21/17 06:06; Start 03/18/17 at 06:00; Stop 03/21/17 at 09 :47; Status DC Miscellaneous Information SPECIFIC LAB TO BE JC... ONCE ONCE .XX ; Start at 05:45; Stop 03/19/17 at 05:49; Status DC Clonidine (Catapres) 0.1 mg ONCE ONCE PO Last administered on 03/18/17 01:02 ; Start 03/18/17 at 00:45; Stop 03/18/17 at 00:49; Status DC Clonidine (Catapres) 0.1 mg Q6H PRN PO SEE LABEL COMMENTS Last administered on 03/26/17 08:55; Start 03/18/17 at 01:00 Pneumococcal Polyvalent Vaccine (Pneumovax-23 Inj) 25 mcg ONCE ONCE IM Last administered on 03/18/17 11:32; Start 03/18/17 at 09:00; Stop 03/18/17 at 09 :01; Status DC Influenza Virus Vaccine (Flu (Quadrivalent) Vaccine Inj) 0.5 ml ONCE ONCE IM Last administered on 03/18/17 11:30; Start 03/18/17 at 09:00; Stop 03/18/17 at 09:01; Status DC Potassium Chloride (KCl) 40 meq ONCE ONCE PO Last administered on 03/18/17 11:26; Start 03/18/17 at 11:00; Stop 03/18/17 at 11:16; Status DC Carvedilol (Coreg) 3.125 mg BID PO Last administered on 03/19/17 09:00; Start 03/18/17 at 11:30; Stop 03/19/17 at 11:46; Status DC Pantoprazole Sodium (Protonix) 40 mg DAILY PO Last administered on 03/26/17 08:53; Start 03/19/17 at 09:00; Stop 03/27/17 at 00:39; Status DC Lisinopril (Prinivil) 5 mg DAILY PO Last administered on 03/19/17 08:59; Start 03/18/17 at 12:30; Stop 03/19/17 at 11:46; Status DC Enalaprilat (Vasotec Inj) 1.25 mg Q6H PRN IV PUSH bp>160/90 Last administered on 03/26/17 01:35; Start 03/18/17 at 12:30 Sodium Chloride 1,000 ml @ 999 mls/hr BOLUS ONCE IV Last administered on 15:42; Start 03/18/17 at 14:30; Stop 03/18/17 at 15:30; Status DC Lisinopril (Prinivil) 40 mg DAILY PO Last administered on 03/27/17 10:01; Start 03/20/17 at 09:00 Carvedilol (Coreg) 6.25 mg Q12HR PO Last administered on 03/27/17 10:00; Start 03/19/17 at 21:00 Hydralazine HCl (Apresoline Inj) 20 mg ONCE ONCE IV PUSH Last administered on 03/19/17 12:35; Start 03/19/17 at 11:45; Stop 03/19/17 at 11:59; Status DC Lisinopril (Prinivil) 40 mg DAILY PO ; Start 03/20/17 at 09:00; Status UNV Lactobacillus Acidophilus (Lactinex) 1 tab TID PO Last administered on 10:00; Start 03/19/17 at 13:00 Lisinopril (Prinivil) 40 mg ONCE STAT PO ; Start 03/19/17 at 12:45; Stop at 12:53; Status DC Carvedilol (Coreg) 3.125 mg ONCE STAT PO ; Start 03/19/17 at 12:45; Stop at 12:53; Status DC Miscellaneous Information SPECIFIC LAB TO BE JC... ONCE ONCE .XX Last administered on 03/21/17 05:45; Start 03/21/17 at 05:45; Stop 03/21/17 at 05 :46; Status DC Potassium Chloride (KCl) 40 meq ONCE ONCE PO Last administered on 03/19/17 15:08; Start 03/19/17 at 14:45; Stop 03/19/17 at 14:46; Status DC Dextrose (D50w (Vial) Inj) 50 ml UNSCH PRN IV PUSH HYPOGLYCEMIA - SEE COMMENTS ; Start 03/19/17 at 17:30 Glucagon (Glucagon Inj) 1 mg UNSCH PRN OTHER HYPOGLYCEMIA-SEE COMMENTS; Start 03/19/17 at 17:30 Insulin Aspart (NovoLOG SUPPLEMENTAL SCALE) 1 ACHS SLIDING SCALE SQ Last administered on 03/26/17 12:35; Start 03/19/17 at 17:21 Magnesium Sulfate/ Dextrose 100 ml @ 100 mls/hr ONCE ONCE IV Last administered on 03/19/17 17:56; Start 03/19/17 at 17:45; Stop 03/19/17 at 18 :44; Status DC Iohexol (Omnipaque 350 Inj) 100 ml STK-MED ONCE IVCONTRAST Last administered on 03/19/17 19:00; Start 03/19/17 at 19:00; Stop 03/19/17 at 19:01; Status DC Magnesium Sulfate/ Dextrose 100 ml @ 100 mls/hr ONCE ONCE IV Last administered on 03/20/17 09:39; Start 03/20/17 at 09:00; Stop 03/20/17 at 09 :59; Status DC Potassium Chloride (KCl) 30 meq ONCE ONCE PO Last administered on 03/21/17 08:30; Start 03/21/17 at 08:30; Stop 03/21/17 at 08:36; Status DC Ampicillin Sodium/ Sulbactam Sodium 3 gm/Sodium Chloride 100 ml @ 200 mls/hr Q6H IV Last administered on 03/21/17 22:00; Start 03/21/17 at 10:00; Stop 03/22/17 at 14:33; Status DC Lactated Ringer's 1,000 ml @ 30 mls/hr Q24H PRN IV SEE LABEL COMMENTS; Start 03/22/17 at 05:45; Stop 03/25/17 at 05:44; Status DC Povidone Iodine (Betadine 5% Antisepsis Kit) 1 applic PARTY CHIEF PRN EACH NARE SEE LABEL COMMENTS; Start 03/22/17 at 05:45; Stop 03/25/17 at 05:44; Status DC Chlorhexidine Gluconate (Chlorhexidine 2% Cloth) 3 pack PARTY CHIEF PRN TOPICAL SEE LABEL COMMENTS; Start 03/22/17 at 05:45; Stop 03/25/17 at 05:44; Status DC Heparin Sodium (Porcine) (Heparin Inj) 10,000 units STK-MED ONCE .ROUTE ; Start 03/22/17 at 07:51; Stop 03/22/17 at 07:52; Status DC Protamine Sulfate (Protamine Sulfate Inj) 50 mg STK-MED ONCE .ROUTE ; Start at 07:51; Stop 03/22/17 at 07:52; Status DC Cefazolin Sodium/ Dextrose 50 ml @ As Directed STK-MED ONCE .ROUTE Last administered on 03/22/17 11:18; Start 03/22/17 at 09:59; Stop 03/22/17 at 10 :00; Status DC Bupivacaine HCl/ Epinephrine Bitart (Sensorcaine-Epinephrine Pf 0.5% Inj) 30 ml STK-MED ONCE .ROUTE ; Start 03/22/17 at 09:59; Stop 03/22/17 at 10:00; Status DC Thrombin (Thrombin Top Elliott) 20,000 units STK-MED ONCE .ROUTE ; Start at 10:08; Stop 03/22/17 at 10:09; Status DC Heparin Sodium/ Sodium Chloride 500 ml @ As Directed STK-MED ONCE .ROUTE Last administered on 03/22/17 10:08; Start 03/22/17 at 10:08; Stop 03/22/17 at 10 :09; Status DC Morphine Sulfate (*morphine INJ PERIprocedure ONLY) 8 mg STK-MED ONCE .ROUTE Last administered on 03/22/17 13:33; Start 03/22/17 at 13:33; Stop 03/22/17 at 13:34; Status DC Morphine Sulfate (*morphine INJ PERIprocedure ONLY) 8 mg STK-MED ONCE .ROUTE Last administered on 03/22/17 13:49; Start 03/22/17 at 13:49; Stop 03/22/17 at 13:50; Status DC Miscellaneous Information ALL NURSING DEPARTME... UNSCH PRN .XX SEE LABEL COMMENTS; Start 03/22/17 at 13:15; Stop 03/23/17 at 13:14; Status DC Ampicillin Sodium/ Sulbactam Sodium 3 gm/Sodium Chloride 100 ml @ 200 mls/hr Q6H IV Last administered on 03/27/17 10:02; Start 03/22/17 at 15:00 Potassium Chloride (KCl) 40 meq ONCE ONCE PO Last administered on 03/23/17 12:21; Start 03/23/17 at 11:00; Stop 03/23/17 at 11:01; Status DC Nifedipine (Procardia Xl) 30 mg NOW ONCE PO Last administered on 03/23/17 17 :32; Start 03/23/17 at 17:30; Stop 03/23/17 at 17:31; Status DC Clonidine (Catapres) 0.1 mg ONCE ONCE PO Last administered on 03/23/17 18:42 ; Start 03/23/17 at 18:30; Stop 03/23/17 at 18:31; Status DC Clopidogrel Bisulfate (Plavix) 75 mg DAILY PO Last administered on 03/27/17 10:00; Start 03/25/17 at 09:00; Status Future Hold Nicotine (Habitrol 14 Mg Patch.24 Hr) 1 patch DAILY T-DERMAL Last administered on 03/27/17 09:59; Start 03/25/17 at 12:30 Miscellaneous Information 1 HS T-DERMAL ; Start 03/25/17 at 21:00 Magnesium Sulfate/ Dextrose 100 ml @ 100 mls/hr Q1H IV Last administered on 12:26; Start 03/26/17 at 09:30; Stop 03/26/17 at 11:29; Status DC Potassium Bicarb/ Potassium Chloride (K-Lyte Cl Eff) 50 meq ONCE ONCE PO Last administered on 03/26/17 10:03; Start 03/26/17 at 09:30; Stop 03/26/17 at 09:35; Status DC Pantoprazole Sodium 80 mg/ Sodium Chloride 35 ml @ 420 mls/hr BOLUS ONCE IV Last administered on 03/27/17 00:54; Start 03/27/17 at 00:45; Stop 03/27/17 at 00:49; Status DC Pantoprazole Sodium 80 mg/ Sodium Chloride 100 ml @ 10 mls/hr CONTINUOUS IV Last administered on 03/27/17 00:54; Start 03/27/17 at 00:45 Polyethylene Glycol/ Electrolytes (Colyte Liq) 4,000 ml ONCE ONCE PO ; Start 03/27/17 at 16:00; Stop 03/27/17 at 16:01; Status UNV A/P Problem List: (1) Cellulitis of leg, right ICD Code: L03.115 - Cellulitis of right lower limb (2) UTI (urinary tract infection) ICD Code: N39.0 - Urinary tract infection, site not specified (3) HTN (hypertension) ICD Code: I10 - Essential (primary) hypertension (4) Alcohol abuse ICD Code: F10.10 - Alcohol abuse, uncomplicated (5) Tobacco abuse ICD Code: Z72.0 - Tobacco use Status: Chronic Assessment and Plan Assessment and Plan A/P Right lower extremity cellulitis with sepsis with gangrene-culture growing group a beta Streptococcus, MSSA, . switched to IV Unasyn- ID and wound care following. will switch to po Augmentin upon discharge- ID f/u appreciated. Peripheral arterial disease- s/p External iliac endarterectomy, femoral-popliteal bypass and popliteal endarterectomy. ( 03/22/17) management per vascular surgery. anemia- likely acute on [id number]; H/H stable. will monitor H/H for now. MELENA/GI BLEED -CLOTS IN STOOL- GI FOR EGD AND COLONOSCOPY TOMORROW right subclavian artery stenosis with steal phenomenon- vascular surgery f/u appreciated and no intervention at this time. Hypertensive urgency-resolved, continue Coreg, lisinopril, clonidine and Vasotec as needed, Diabetes mellitus-status scale insulin with Accu-Cheks Alcohol and tobacco abuse-watch out for withdrawal, CIWA protocol, thiamine, folate and multivitamins. Hypomagnesemia-replaced. Hypokalemia; replaced.REPLACE AGAIN hyponatremia;improved- will monitor. right adrenal mass- f/u as outpatient. HOMELESS?? DVT prophylaxis: Heparin- ON HOLD A.m. labs Continue current wound care Case management consult Discharge Planning Case management consult Continue physical therapy occupational therapy Erickson Eng DO Mar 27, 2017 11:37
[2017-03-27] MEDS ORDERED: POTASSIUM CHLORIDE 20 MEQ CONTROLLED RELEASE TAB PO ONE (11:45)
[2017-03-27] MEDS ORDERED: PEG (High)/E-LYTE SOLN 4000 ML BTL PO ONE (16:00)
[2017-03-27 19:36] LABS: HEMATOCRIT 25.4 % (35.0-46.0); REVIEW FLAG FINAL
[2017-03-27] MEDS: REMOVE OLD PATCH T-DERMAL SCH (20:06)
[2017-03-28 00:18] VITALS: BP 122/74; PULSE 82; RESP 18; TEMP 98.7; O2SAT 98
[2017-03-28] MEDS ORDERED: LACTATED RINGER'S 1000 ML IV PRN (01:30)
[2017-03-28] MEDS: AMPICILLIN-SULBACTAM INJ 3 GM in SODIUM CHLORIDE 0.9% INJ 100 ML IV SCH ×2 (02:45→09:24)
[2017-03-28] MEDS: PANTOPRAZOLE INJ 80 MG in SODIUM CHLORIDE 0.9% INJ 100 ML IV SCH ×2 (04:11→16:09)
[2017-03-28 07:53] LABS: PROTHROMBIN TIME - PATIENT 11.1 SEC (9.8-11.6)
[2017-03-28 07:59] LABS: AUTOMATED NEUTROPHIL # 3.9 TH/MM3 (1.8-7.7); BASOPHIL % 0.4 % (0.0-2.0); EOSINOPHIL # 0.1 TH/MM3 (0-0.4); EOSINOPHIL % 1.8 % (0.0-4.0); HEMATOCRIT 26.5 % (35.0-46.0); HEMO FLAGS DIFF FINAL; LYMPH % 20.8 % (9.0-44.0); LYMPHOCYTE # 1.2 TH/MM3 (1.0-4.8); MEAN CELL VOLUME 89.4 FL (80.0-100.0); MEAN CORPUSCULAR HEMOGLOBIN 30.2 PG (27.0-34.0); MEAN CORPUSCULAR HGB CONC 33.8 % (32.0-36.0); MONO % 10.4 % (0.0-8.0); NEUT % 66.6 % (16.0-70.0); PLATELET COUNT 174 TH/MM3 (150-450); RED BLOOD COUNT 2.97 MIL/MM3 (4.00-5.30); RED CELL DISTRIBUTION WIDTH 18.1 % (11.6-17.2); WHITE BLOOD COUNT 5.9 TH/MM3 (4.0-11.0)
[2017-03-28 08:00] VITALS: BP 131/79; PULSE 86; RESP 17; TEMP 99.1; O2SAT 96
[2017-03-28] MEDS: LOW DOSE INSULIN NOVOLOG SUPPLEMENTAL SCALE SQ SCH ×4 (08:00→20:49)
[2017-03-28 08:11] LABS: ANION GAP 7 MEQ/L (5-15); AST (GOT) 34 U/L (15-37); BICARBONATE 27.2 MEQ/L (21.0-32.0); BLOOD UREA NITROGEN 7 MG/DL (7-18); CHLORIDE 99 MEQ/L (98-107); GLOMERULAR FILTRATION RATE 128 ML/MIN (>89); MAGNESIUM 1.5 MG/DL (1.5-2.5); POTASSIUM 3.6 MEQ/L (3.5-5.1); SODIUM (NA) 133 MEQ/L (136-145)
[2017-03-28 08:12] LABS: ALT (GPT) 15 U/L (10-53)
[2017-03-28 08:14] LABS: ALKALINE PHOSPHATASE 65 U/L (45-117); TOTAL BILIRUBIN ADULT 0.3 MG/DL (0.2-1.0)
[2017-03-28] MEDS: LISINOPRIL 20 MG TAB PO SCH (09:00)
[2017-03-28] MEDS: DOCUSATE SODIUM 50 MG/SENNA 8.6 MG TAB PO SCH ×2 (09:00→20:45)
[2017-03-28] MEDS: CARVEDILOL 6.25 MG TAB PO SCH ×2 (09:00→22:24)
[2017-03-28] MEDS: THIAMINE HCL 100 MG TAB PO SCH (09:00)
[2017-03-28] MEDS: LACTOBACILLUS ACIDOPHILUS TAB PO SCH ×3 (09:00→18:00)
[2017-03-28] MEDS: ACETAMINOPHEN 325 MG TAB PO PRN (09:23)
[2017-03-28] MEDS: SODIUM CHLORIDE 0.9% FLUSH 10 ML FLUSH IV FLUSH SCH ×2 (09:24→20:45)
[2017-03-28] MEDS: NICOTINE 14 MG/24 HR PATCH T-DERMAL SCH (09:24)
--- NOTE | 2017-03-28 12:48 | GIPROC ---
[facility] [address] [facility]. [facility], [address] COLONOSCOPY PROCEDURE REPORT EXAM DATE: 03/28/2017 PATIENT NAME: Cierra Woodruff MR #: [id number] BIRTHDATE: 1960 ENDOSCOPIST: Marbella Ram MD ORDER #: [id number] LOCOMOTIVE OILER: Bang Appiah and Bonnie Fontana STATUS: inpatient INDICATIONS: The patient is a 56 yr old female here for a colonoscopy due to gi bleeding, abdominal pain, diarrhea PROCEDURE PERFORMED: Colonoscopy with biopsy MEDICATIONS: None and Per Anesthesia. PREP QUALITY: fair PREP TYPE:Other: ESTIMATED BLOOD LOSS: None CONSENT: The patient understands the risks and benefits of the procedure and understands that these risks include, but are not limited to: sedation, allergic reaction, infection, perforation and/or bleeding. Alternative means of evaluation and treatment include, among others: physical exam, x-rays, and/or surgical intervention. The patient elects to proceed with this endoscopic procedure. medical equipment was checked for proper function. Hand hygiene and appropriate measures for infection prevention was taken. After the risks, benefits and alternatives of the procedure were thoroughly explained, Informed consent was verified, confirmed and timeout was successfully executed by the treatment team. A digital exam revealed external hemorrhoids and revealed decreased sphincter tone The Pentax [id number] endoscope was introduced through the anus and advanced to the cecum, which was identified by both the appendix and ileocecal valve. The instrument was then slowly withdrawn as the colon was fully examined. COLON FINDINGS: Normal colon-random biopsies from ascendig, descending proctitis-biopsy. Retroflexed views revealed internal hemorrhoids and Retroflexed views revealed medium internal hemorrhoids The scope was then completely withdrawn from the patient and the procedure terminated. PROCEDURE WITHDRAWAL TIME:6minutes ADVERSE EVENTS: There were no complications. IMPRESSIONS: 1. Normal colon-random biopsies from ascendig, descending proctitis-biopsy 2. Retroflexed views revealed internal hemorrhoids 3. Retroflexed views revealed medium internal hemorrhoids 4. Revealed external hemorrhoids 5. Revealed decreased sphincter tone RECOMMENDATIONS: 1. Await biopsy results. Biopsy results will not be ready for 7-10 days. If you don't hear from us in two weeks, call our office for results. 2. Benefiber 2 tsp daily 3. High fiber diet 4. Avoid NSAIDS and Aspirin 5. Probiotics from any [facility] or health food store 6. Yearly rectal exams 7. Anucort supp bid RECALL: Return 3 years Colonoscopy Marbella Ram MD eSigned: Marbella Ram MD 03/28/2017 12:48 PM cc: PATIENT NAME: Cierra Woodruff MR#: [id number]
[2017-03-28] MEDS ORDERED: DO NOT ADM ANY ANTICOAGULANT DRUGS PRN (13:50)
--- NOTE | 2017-03-28 14:43 | HHI.IDPN ---
Subjective Subjective Remarks Patient is a 56-year-old female, presented to the hospital complaining of painful wounds on her right leg. Patient states she's had the wounds for about several months. She thinks she got it from insect bites. She had initially been going to the wound care center here at [place] but she is not compliant as far as follow-up. She is getting more drainage from her leg wounds and was getting some redness. She presented to the hospital for further evaluation and treatment. Patient has had low-grade temps since admission. Today however is her temperatures up to 102. Her WBC is normal. Patient is being evaluated by vascular surgery. Wound cultures preliminary are growing Proteus, staph aureus and strep. Infectious disease consultation has been requested to evaluate the patient. Notes reviewed Had surgical revascularization done Colonoscopy done today for bleeding per rectum Has findings of internal hemorrhoids Low grade temps last 24 hours No rash or itching NO diarrhea Voiding ok No respiratory complaints Antibiotics Current Medications Unasyn Medications (Trade) Dose Ordered Sig/Ruma Route Start Time Stop Time Status Last Admin (Vitamin B1) 100 mg DAILY PO 03/18/17 09:00 03/27/17 10:01 (Romazicon Inj) 0.2 mg Q1M PRN IV PUSH 03/17/17 19:30 (Ativan) 1 mg Q4H PRN PO 03/17/17 19:30 (Ativan Inj) 1 mg Q4H PRN IV PUSH 03/17/17 19:30 (Ativan) 2 mg Q2H PRN PO 03/17/17 19:30 (Ativan Inj) 2 mg Q2H PRN IV PUSH 03/17/17 19:30 (Ativan Inj) 2 mg Q1H PRN IV PUSH 03/17/17 19:30 (Ativan Inj) 2 mg Q15M PRN IV PUSH 03/17/17 19:30 (Haldol Inj) 2 mg Q15M PRN IM 03/17/17 19:30 Sodium Chloride 1,000 ml @ 100 mls/hr Q10H IV 03/17/17 19:21 Future Hold 03/24/17 01:21 (NS Flush) 2 ml UNSCH PRN IV FLUSH 03/17/17 19:30 03/26/17 01:35 (NS Flush) 2 ml BID IV FLUSH 03/17/17 21:00 03/28/17 09:24 (Zofran Inj) 4 mg Q6H PRN IVP 03/17/17 19:30 (Heparin Inj) 5,000 units Q12H SQ 03/18/17 09:00 Future Hold 03/26/17 19:48 (Tylenol) 650 mg Q6H PRN PO 03/17/17 19:30 03/28/17 09:23 (Roxicodone) 10 mg Q4H PRN PO 03/17/17 19:30 03/26/17 06:46 (Roxicodone) 5 mg Q4H PRN PO 03/17/17 19:30 03/27/17 15:31 (Heena-Colace) 1 tab BID PO 03/17/17 21:00 03/27/17 20:05 (Milk Of Magnesia Liq) 30 ml Q12H PRN PO 03/17/17 19:30 (Senokot) 17.2 mg Q12H PRN PO 03/17/17 19:30 (Dulcolax Supp) 10 mg DAILY PRN RECTAL 03/17/17 19:30 (Lactulose Liq) 30 ml DAILY PRN PO 03/17/17 19:30 (Catapres) 0.1 mg Q6H PRN PO 03/18/17 01:00 03/26/17 08:55 (Vasotec Inj) 1.25 mg Q6H PRN IV PUSH 03/18/17 12:30 03/26/17 01:35 (Prinivil) 40 mg DAILY PO 03/20/17 09:00 03/27/17 10:01 (Coreg) 6.25 mg Q12HR PO 03/19/17 21:00 03/27/17 20:05 (Lactinex) 1 tab TID PO 03/19/17 13:00 03/27/17 18:30 (D50w (Vial) Inj) 50 ml UNSCH PRN IV PUSH 03/19/17 17:30 (Glucagon Inj) 1 mg UNSCH PRN OTHER 03/19/17 17:30 (NovoLOG SUPPLEMENTAL SCALE) 1 ACHS SLIDING SCALE SQ 03/19/17 17:21 03/26/17 12:35 Ampicillin Sodium/ Sulbactam Sodium 3 gm/Sodium Chloride 100 ml @ 200 mls/hr Q6H IV 03/22/17 15:00 03/28/17 09:24 (Plavix) 75 mg DAILY PO 03/25/17 09:00 Future Hold 03/27/17 10:00 (Habitrol 14 Mg Patch.24 Hr) 1 patch DAILY T-DERMAL 03/25/17 12:30 03/28/17 09:24 Miscellaneous Information 1 HS T-DERMAL 03/25/17 21:00 Pantoprazole Sodium 80 mg/ Sodium Chloride 100 ml @ 10 mls/hr CONTINUOUS IV 03/27/17 00:45 03/28/17 04:11 Lactated Ringer's 1,000 ml @ 30 mls/hr Q24H PRN IV 03/28/17 01:30 03/31/17 01:29 (Hemorrhoidal Hc Supp) 25 mg BID RECTAL 03/28/17 21:00 Miscellaneous Information ALL NURSING DEPARTME... UNSCH PRN .XX 03/28/17 13:50 03/29/17 13:49 Lines PIV Past Medical History HTN Alcohol Abuse and Tobacco Abuse Allergies: Coded Allergies: lactose (Verified Adverse Reaction, Severe, Diarrhea, 03/17/17) orange juice (Verified Adverse Reaction, Severe, Cramping, 03/17/17) Objective . Vital Signs Date Time Temp Pulse Resp B/P (MAP) Pulse Ox O2 Delivery O2 Flow Rate FiO2 03/28/17 13:15 97.0 59 18 150/86 (107) 100 03/28/17 12:52 97.1 70 18 126/88 (101) 100 03/28/17 08:00 99.1 86 17 131/79 (96) 96 03/28/17 00:18 98.7 82 18 122/74 (90) 98 03/27/17 20:41 98.8 80 16 116/72 (87) 98 03/27/17 16:00 98.9 82 18 173/83 (113) 98 03/28/17 03/28/17 03/29/17 15:00 23:00 07:00 Intake Total 300 ml Balance 300 ml Other 300 ml . Laboratory Tests Test 03/27/17 01:00 03/27/17 08:33 03/27/17 18:25 03/28/17 07:23 White Blood Count 6.9 TH/MM3 7.5 TH/MM3 5.9 TH/MM3 Red Blood Count 2.65 MIL/MM3 2.94 MIL/MM3 2.97 MIL/MM3 Hemoglobin 7.9 GM/DL 9.1 GM/DL 8.5 GM/DL 9.0 GM/DL Hematocrit 23.4 % 26.5 % 25.4 % 26.5 % Mean Corpuscular Volume 88.5 FL 90.3 FL 89.4 FL Mean Corpuscular Hemoglobin 29.8 PG 31.1 PG 30.2 PG Mean Corpuscular Hemoglobin Concent 33.7 % 34.4 % 33.8 % Red Cell Distribution Width 20.2 % 18.4 % 18.1 % Platelet Count 185 TH/MM3 168 TH/MM3 174 TH/MM3 Mean Platelet Volume 7.1 FL 6.9 FL 7.0 FL Neutrophils (%) (Auto) 64.1 % 66.0 % 66.6 % Lymphocytes (%) (Auto) 25.1 % 20.8 % 20.8 % Monocytes (%) (Auto) 8.6 % 11.7 % 10.4 % Eosinophils (%) (Auto) 1.3 % 1.1 % 1.8 % Basophils (%) (Auto) 0.9 % 0.4 % 0.4 % Neutrophils # (Auto) 4.4 TH/MM3 5.0 TH/MM3 3.9 TH/MM3 Lymphocytes # (Auto) 1.7 TH/MM3 1.6 TH/MM3 1.2 TH/MM3 Monocytes # (Auto) 0.6 TH/MM3 0.9 TH/MM3 0.6 TH/MM3 Eosinophils # (Auto) 0.1 TH/MM3 0.1 TH/MM3 0.1 TH/MM3 Basophils # (Auto) 0.1 TH/MM3 0.0 TH/MM3 0.0 TH/MM3 CBC Comment DIFF FINAL DIFF FINAL DIFF FINAL Differential Comment Laboratory Tests Test 03/27/17 01:00 03/27/17 08:33 03/28/17 07:23 Blood Urea Nitrogen 11 MG/DL 10 MG/DL 7 MG/DL Creatinine 0.76 MG/DL 0.68 MG/DL 0.59 MG/DL Random Glucose 115 MG/DL 87 MG/DL 86 MG/DL Total Protein 7.7 GM/DL 8.0 GM/DL 8.0 GM/DL Albumin 1.7 GM/DL 1.8 GM/DL 1.8 GM/DL Calcium Level 8.1 MG/DL 8.0 MG/DL 8.4 MG/DL Alkaline Phosphatase 68 U/L 64 U/L 65 U/L Aspartate Amino Transf (AST/SGOT) 23 U/L 24 U/L 34 U/L Alanine Aminotransferase (ALT/SGPT) 13 U/L 13 U/L 15 U/L Total Bilirubin 0.2 MG/DL 0.7 MG/DL 0.3 MG/DL Sodium Level 133 MEQ/L 133 MEQ/L 133 MEQ/L Potassium Level 3.5 MEQ/L 3.4 MEQ/L 3.6 MEQ/L Chloride Level 97 MEQ/L 97 MEQ/L 99 MEQ/L Carbon Dioxide Level 28.1 MEQ/L 27.9 MEQ/L 27.2 MEQ/L Anion Gap 8 MEQ/L 8 MEQ/L 7 MEQ/L Estimat Glomerular Filtration Rate 96 ML/MIN 109 ML/MIN 128 ML/MIN Phosphorus Level 3.2 MG/DL 3.1 MG/DL Magnesium Level 1.8 MG/DL 1.5 MG/DL Microbiology Date/Time Source Procedure Growth Status 03/27/17 09:40 Stool Stool Stool Occult Blood (JULIO) - Final HEMOCCULT POSITIVE Complete Physical Exam GENERAL: awake and alert, not in respiratory distress. SKIN: Warm and dry. No generalized rash, no ecchymoses and no evidence of embolic lesions. HEAD: Atraumatic. Normocephalic. No temporal wasting, or tenderness. EYES: [place] conjunctiva. No petechia or hemorrhage. Pupils equal, round and reactive to light. Extraocular movements full and intact. No scleral icterus. No injection or drainage. EARS, NOSE AND THROAT: Nose without bleeding or purulent nasal discharge. No sinus tenderness. Mucous membranes pink and moist. No oral lesions noted. NECK: Trachea midline. Supple and not tender, no meningeal signs. Has some small cervical LN CARDIOVASCULAR: Regular rate and rhythm. No murmurs, rubs or gallops heard RESPIRATORY: Clear to auscultation. Breath sounds equal bilaterally. No rales , wheezing or rhonchi ABDOMEN: Soft, non-tender, nondistended. Bowel sounds present and normoactive. No guarding. No rebound. No organomegaly. EXTREMITIES: RLE wounds clean, with red base, no purulence now, no odor. Incisions look ok, NEUROLOGICAL: Grossly non-focal. PSYCHIATRIC: Normal affect, calm and cooperative. LINE: No evidence of infection Assessment & Plan Remarks IMPRESSION Sepsis due to infected R leg wounds, resolved Infected wounds R leg, prob ischemic ulcers - better PVD, S/P bypass Known tobacco and ETOH abuse Low grade temps RECOMMENDATION Stop Unasyn PO Levaquin Check UA and C/S Wound care Follow temps Monitor progress Adrienne Mendenhall MD Mar 28, 2017 14:43
[2017-03-28 16:00] VITALS: BP 122/72; PULSE 64; RESP 18; TEMP 96.1; O2SAT 92
[2017-03-28] MEDS: LEVOFLOXACIN 500 MG TAB PO SCH (16:08)
--- NOTE | 2017-03-28 16:33 | HHI.PR ---
Subjective Remarks Left leg cellulitis is improving. CBC is also improving to time. No further GI bleed. Status post EGD/colonoscopy, report pending. Objective Vital Signs Date Time Temp Pulse Resp B/P (MAP) Pulse Ox O2 Delivery O2 Flow Rate FiO2 03/28/17 13:15 97.0 59 18 150/86 (107) 100 03/28/17 12:52 97.1 70 18 126/88 (101) 100 03/28/17 08:00 99.1 86 17 131/79 (96) 96 03/28/17 00:18 98.7 82 18 122/74 (90) 98 03/27/17 20:41 98.8 80 16 116/72 (87) 98 I/O 03/27/17 03/27/17 03/27/17 03/28/17 03/28/17 03/28/17 07:00 15:00 23:00 07:00 15:00 23:00 Intake Total 815 ml 200 ml 1210 ml 100 ml 300 ml Balance 815 ml 200 ml 1210 ml 100 ml 300 ml Intake Oral 280 ml 1010 ml IV Total 135 ml 200 ml 200 ml 100 ml Packed Cells 400 ml Other 300 ml # Voids 3 3 6 # Bowel Movements 2 8 6 Result Diagram: 03/28/1772203/28/17722 Objective Remarks GENERAL: NAD, A&Ox3 HEAD: Normocephalic. NECK: Supple, trachea midline. No lymphadenopathy. EYES: No scleral icterus. No injection or drainage. CARDIOVASCULAR: Regular rate and rhythm without murmurs, gallops, or rubs. RESPIRATORY: Breath sounds equal bilaterally. No accessory muscle use. GASTROINTESTINAL: Abdomen soft, non-tender, nondistended. MUSCULOSKELETAL: No cyanosis, or edema. Right lower extremity bandaged. SKIN: Warm and dry. NEURO: No focal neurological deficitis. A/P Problem List: (1) Tobacco abuse ICD Code: Z72.0 - Tobacco use (2) Cellulitis of right lower extremity without foot ICD Code: L03.115 - Cellulitis of right lower limb Status: Acute (3) HTN (hypertension) ICD Code: I10 - Essential (primary) hypertension (4) UTI (urinary tract infection) ICD Code: N39.0 - Urinary tract infection, site not specified (5) Cellulitis of leg, right ICD Code: L03.115 - Cellulitis of right lower limb (6) Peripheral vascular disease ICD Code: I73.9 - Peripheral vascular disease, unspecified Status: Chronic Assessment and Plan Assessment and Plan 56-year-old female admitted secondary to cellulitis with gangrene and sepsis. Sepsis Resolved Right lower extremity cellulitis with gangrene culture growing group a beta Streptococcus, MSSA, . ID following Wound care management Continue Unasyn Plan for by mouth Augmentin at discharge Peripheral arterial disease Follow clinically s/p External iliac endarterectomy, femoral-popliteal bypass and popliteal endarterectomy. ( 03/22/17) management per vascular surgery. Acute blood loss anemia Improving Follow H&H GI following Right subclavian artery stenosis Steal phenomenon present Vascular surgery to continue following as an outpatient Hypertension Coreg lisinopril clonidine and Vasotec as needed, Diabetes mellitus type 2 Follow blood sugars Insulin sliding scale Diabetic diet Nicotine dependence NicoDerm as needed Alcohol dependence CIWA protocol Thiamine Folic acid Multivitamin Hypomagnesemia Hypokalemia Monitor levels Replace as needed hyponatremia Follow sodium levels Resolving right adrenal mass Delayed repeat imaging and follows in outpatient DVT prophylaxis Holding heparin secondary to bleed SCDs contraindicated secondary to wounds Jj Cisse MD Mar 28, 2017 16:33
--- NOTE | 2017-03-28 17:20 | PD.CAR.PN ---
CVT Progress Note Subjective/Hospital Course: Patient seen full consult dictated Thanks J 03/20/17 Patient with severe peripheral vascular disease and ulcers on the right leg encompassing most of the calf CTA with runoff pending We'll see what that shows and then decide if there is anything we can do for this patient as far as revascularization and chances of improvement of healing In the meantime patient needs wound care consult and adequate wound care to her calves Patient apparently lives on the [address] and this may be an issue with disposition US carotids - retrograde flow in R vertebral. This is consistent with significantly lower SBP in R arm and subclavian steel on the R. Patient however asymptomatic, so would leave it alone 03/21/17 Patient with severe peripheral vascular disease and nonhealing ulcers of the legs as well as presumptive left subclavian stenosis At this point the leg issue has to be addressed in face of acute ulcers I reviewed CTA with a runoff Right leg the vasculature inflow is intact and then there is a occlusion of superficial femoral artery in addition to multilevel stenoses. Popliteal artery looks okay and anterior tibial artery is the dominant vessel with a runoff Left leg again has several areas of stenosis of SFA and then a very tight stenosis of trifurcation. Considering that the right side is symptomatic we'll proceed with right femoropopliteal bypass and see how patient does I am worried about doing in the endovascular interventions here because patient is noncompliant with either follow-up or medications which makes endovascular results quite dubious Right femoropopliteal bypass tomorrow 03/22/17 Patient status post right femoropopliteal bypass with endarterectomy Patient's excellent flow distally with warm and well-perfused foot I'll be leaving town tomorrow and Dr. Magallon will cover for any emergency 03/28/17 Patient doing very well Incisions are clean and dry and healing nicely Patient has bounding pulse in her graft and distal strong Doppler signal Lower extremity erosive ulcer care as per wound care team Patient is to follow-up in my office in about a month Nothing to add from surgical vascular care Objective: Vital Signs Date Time Temp Pulse Resp B/P (MAP) Pulse Ox O2 Delivery O2 Flow Rate FiO2 03/28/17 16:00 96.1 64 18 122/72 (89) 92 03/28/17 13:15 97.0 59 18 150/86 (107) 100 03/28/17 12:52 97.1 70 18 126/88 (101) 100 03/28/17 08:00 99.1 86 17 131/79 (96) 96 03/28/17 00:18 98.7 82 18 122/74 (90) 98 03/27/17 20:41 98.8 80 16 116/72 (87) 98 Labs: Laboratory Tests Test 03/28/17 07:23 White Blood Count 5.9 TH/MM3 (4.0-11.0) Red Blood Count 2.97 MIL/MM3 (4.00-5.30) Hemoglobin 9.0 GM/DL (11.6-15.3) Hematocrit 26.5 % (35.0-46.0) Mean Corpuscular Volume 89.4 FL (80.0-100.0) Mean Corpuscular Hemoglobin 30.2 PG (27.0-34.0) Mean Corpuscular Hemoglobin Concent 33.8 % (32.0-36.0) Red Cell Distribution Width 18.1 % (11.6-17.2) Platelet Count 174 TH/MM3 (150-450) Mean Platelet Volume 7.0 FL (7.0-11.0) Neutrophils (%) (Auto) 66.6 % (16.0-70.0) Lymphocytes (%) (Auto) 20.8 % (9.0-44.0) Monocytes (%) (Auto) 10.4 % (0.0-8.0) Eosinophils (%) (Auto) 1.8 % (0.0-4.0) Basophils (%) (Auto) 0.4 % (0.0-2.0) Neutrophils # (Auto) 3.9 TH/MM3 (1.8-7.7) Lymphocytes # (Auto) 1.2 TH/MM3 (1.0-4.8) Monocytes # (Auto) 0.6 TH/MM3 (0-0.9) Eosinophils # (Auto) 0.1 TH/MM3 (0-0.4) Basophils # (Auto) 0.0 TH/MM3 (0-0.2) CBC Comment DIFF FINAL Differential Comment Prothrombin Time 11.1 SEC (9.8-11.6) Prothromb Time International Ratio 1.0 RATIO Blood Urea Nitrogen 7 MG/DL (7-18) Creatinine 0.59 MG/DL (0.50-1.00) Random Glucose 86 MG/DL (74-106) Total Protein 8.0 GM/DL (6.4-8.2) Albumin 1.8 GM/DL (3.4-5.0) Calcium Level 8.4 MG/DL (8.5-10.1) Phosphorus Level 3.1 MG/DL (2.5-4.9) Magnesium Level 1.5 MG/DL (1.5-2.5) Alkaline Phosphatase 65 U/L (45-117) Aspartate Amino Transf (AST/SGOT) 34 U/L (15-37) Alanine Aminotransferase (ALT/SGPT) 15 U/L (10-53) Total Bilirubin 0.3 MG/DL (0.2-1.0) Sodium Level 133 MEQ/L (136-145) Potassium Level 3.6 MEQ/L (3.5-5.1) Chloride Level 99 MEQ/L (98-107) Carbon Dioxide Level 27.2 MEQ/L (21.0-32.0) Anion Gap 7 MEQ/L (5-15) Estimat Glomerular Filtration Rate 128 ML/MIN (>89) Result Diagram: 03/28/17 0723 03/28/17 0723 Dallas Monaco MD Mar 28, 2017 17:20
[2017-03-28 20:00] VITALS: BP 124/87; PULSE 76; RESP 16; TEMP 98.2; O2SAT 92
[2017-03-28] MEDS: HYDROCORTISONE ACETATE 25 MG SUPP RECTAL SCH (20:46)
[2017-03-28] MEDS: REMOVE OLD PATCH T-DERMAL SCH (20:46)
[2017-03-28 23:01] LABS: BLOOD, URINE SMALL (NEG); COMMENT (UR) CULTURE INDICATED; CULTURE IF INDICATED CULTURE INDICATED; GLUCOSE,URINE NEG (NEG); KETONE, URINE NEG (NEG); MUCUS URINE FEW /lpf (OCC); NITRITE,URINE NEG (NEG); SQUAMOUS EPITHELIAL CELL URINE 7 /hpf (0-5); URINE COLOR YELLOW (YELLW/STRAW)
[2017-03-29] VITALS: BP 121/77; PULSE 91; RESP 16; TEMP 99.5; O2SAT 96
[2017-03-29] MEDS: ACETAMINOPHEN 325 MG TAB PO PRN ×2 (05:02→11:36)
[2017-03-29] MEDS: PANTOPRAZOLE INJ 80 MG in SODIUM CHLORIDE 0.9% INJ 100 ML IV SCH (07:43)
[2017-03-29] MEDS: SODIUM CHLORIDE 0.9% FLUSH 10 ML FLUSH IV FLUSH SCH (07:44)
[2017-03-29 08:00] VITALS: BP 107/66; PULSE 79; RESP 19; TEMP 96.9; O2SAT 96
[2017-03-29] MEDS: LOW DOSE INSULIN NOVOLOG SUPPLEMENTAL SCALE SQ SCH ×2 (08:00→12:00)
[2017-03-29] MEDS: LEVOFLOXACIN 500 MG TAB PO SCH (08:38)
[2017-03-29] MEDS: THIAMINE HCL 100 MG TAB PO SCH (08:38)
[2017-03-29] MEDS: NICOTINE 14 MG/24 HR PATCH T-DERMAL SCH (08:38)
[2017-03-29] MEDS: LACTOBACILLUS ACIDOPHILUS TAB PO SCH ×2 (08:38→13:00)
[2017-03-29] MEDS: CARVEDILOL 6.25 MG TAB PO SCH (09:00)
[2017-03-29] MEDS: DOCUSATE SODIUM 50 MG/SENNA 8.6 MG TAB PO SCH (09:00)
[2017-03-29] MEDS: LISINOPRIL 20 MG TAB PO SCH (09:00)
[2017-03-29] MEDS: HYDROCORTISONE ACETATE 25 MG SUPP RECTAL SCH (09:00)
[2017-03-29 12:00] VITALS: BP 122/70; PULSE 92; RESP 20; TEMP 96.9; O2SAT 97
[2017-03-29] MEDS ORDERED: LEVA500T33 PO (12:35)
[2017-03-29 12:36] VITALS: RESP 18
--- NOTE | 2017-03-29 12:38 | HHI.IDPN ---
Subjective Subjective Remarks Patient is a 56-year-old female, presented to the hospital complaining of painful wounds on her right leg. Patient states she's had the wounds for about several months. She thinks she got it from insect bites. She had initially been going to the wound care center here at [place] but she is not compliant as far as follow-up. She is getting more drainage from her leg wounds and was getting some redness. She presented to the hospital for further evaluation and treatment. Patient has had low-grade temps since admission. Today however is her temperatures up to 102. Her WBC is normal. Patient is being evaluated by vascular surgery. Wound cultures preliminary are growing Proteus, staph aureus and strep. Infectious disease consultation has been requested to evaluate the patient. Notes reviewed Temps better OK by vascular for D/C No new complaints UA mild pyuria 14 WBC Getting ready for D/C Antibiotics Current Medications Levaquin Medications (Trade) Dose Ordered Sig/Ruma Route Start Time Stop Time Status Last Admin (Vitamin B1) 100 mg DAILY PO 03/18/17 09:00 03/29/17 08:38 (Romazicon Inj) 0.2 mg Q1M PRN IV PUSH 03/17/17 19:30 (Ativan) 1 mg Q4H PRN PO 03/17/17 19:30 (Ativan Inj) 1 mg Q4H PRN IV PUSH 03/17/17 19:30 (Ativan) 2 mg Q2H PRN PO 03/17/17 19:30 (Ativan Inj) 2 mg Q2H PRN IV PUSH 03/17/17 19:30 (Ativan Inj) 2 mg Q1H PRN IV PUSH 03/17/17 19:30 (Ativan Inj) 2 mg Q15M PRN IV PUSH 03/17/17 19:30 (Haldol Inj) 2 mg Q15M PRN IM 03/17/17 19:30 Sodium Chloride 1,000 ml @ 100 mls/hr Q10H IV 03/17/17 19:21 Future Hold 03/24/17 01:21 (NS Flush) 2 ml UNSCH PRN IV FLUSH 03/17/17 19:30 03/26/17 01:35 (NS Flush) 2 ml BID IV FLUSH 03/17/17 21:00 03/29/17 07:44 (Zofran Inj) 4 mg Q6H PRN IVP 03/17/17 19:30 (Heparin Inj) 5,000 units Q12H SQ 03/18/17 09:00 Future Hold 03/26/17 19:48 (Tylenol) 650 mg Q6H PRN PO 03/17/17 19:30 03/29/17 11:36 (Roxicodone) 10 mg Q4H PRN PO 03/17/17 19:30 03/29/17 10:27 (Roxicodone) 5 mg Q4H PRN PO 03/17/17 19:30 03/27/17 15:31 (Heena-Colace) 1 tab BID PO 03/17/17 21:00 03/27/17 20:05 (Milk Of Magnesia Liq) 30 ml Q12H PRN PO 03/17/17 19:30 (Senokot) 17.2 mg Q12H PRN PO 03/17/17 19:30 (Dulcolax Supp) 10 mg DAILY PRN RECTAL 03/17/17 19:30 (Lactulose Liq) 30 ml DAILY PRN PO 03/17/17 19:30 (Catapres) 0.1 mg Q6H PRN PO 03/18/17 01:00 03/26/17 08:55 (Vasotec Inj) 1.25 mg Q6H PRN IV PUSH 03/18/17 12:30 03/26/17 01:35 (Prinivil) 40 mg DAILY PO 03/20/17 09:00 03/27/17 10:01 (Coreg) 6.25 mg Q12HR PO 03/19/17 21:00 03/28/17 22:24 (Lactinex) 1 tab TID PO 03/19/17 13:00 03/29/17 08:38 (D50w (Vial) Inj) 50 ml UNSCH PRN IV PUSH 03/19/17 17:30 (Glucagon Inj) 1 mg UNSCH PRN OTHER 03/19/17 17:30 (NovoLOG SUPPLEMENTAL SCALE) 1 ACHS SLIDING SCALE SQ 03/19/17 17:21 03/26/17 12:35 (Plavix) 75 mg DAILY PO 03/25/17 09:00 Future Hold 03/27/17 10:00 (Habitrol 14 Mg Patch.24 Hr) 1 patch DAILY T-DERMAL 03/25/17 12:30 03/29/17 08:38 Miscellaneous Information 1 HS T-DERMAL 03/25/17 21:00 Pantoprazole Sodium 80 mg/ Sodium Chloride 100 ml @ 10 mls/hr CONTINUOUS IV 03/27/17 00:45 03/29/17 07:43 Lactated Ringer's 1,000 ml @ 30 mls/hr Q24H PRN IV 03/28/17 01:30 03/31/17 01:29 (Hemorrhoidal Hc Supp) 25 mg BID RECTAL 03/28/17 21:00 Miscellaneous Information ALL NURSING DEPARTME... UNSCH PRN .XX 03/28/17 13:50 03/29/17 13:49 (Levaquin) 500 mg DAILY PO 03/28/17 15:00 03/29/17 08:38 Lines PIV Past Medical History HTN Alcohol Abuse and Tobacco Abuse Allergies: Coded Allergies: lactose (Verified Adverse Reaction, Severe, Diarrhea, 03/17/17) orange juice (Verified Adverse Reaction, Severe, Cramping, 03/17/17) Objective . Vital Signs Date Time Temp Pulse Resp B/P (MAP) Pulse Ox O2 Delivery O2 Flow Rate FiO2 03/29/17 11:27 18 03/29/17 08:00 96.9 79 19 107/66 (80) 96 03/29/17 00:00 99.5 91 16 121/77 (92) 96 03/28/17 20:00 98.2 76 16 124/87 (99) 92 03/28/17 16:00 96.1 64 18 122/72 (89) 92 03/28/17 13:15 97.0 59 18 150/86 (107) 100 03/28/17 12:52 97.1 70 18 126/88 (101) 100 03/29/17 03/29/17 03/30/17 14:59 22:59 06:59 Intake Total 120 ml Balance 120 ml Intake Oral 120 ml . Laboratory Tests Test 03/27/17 18:25 03/28/17 07:23 Hemoglobin 8.5 GM/DL 9.0 GM/DL Hematocrit 25.4 % 26.5 % White Blood Count 5.9 TH/MM3 Red Blood Count 2.97 MIL/MM3 Mean Corpuscular Volume 89.4 FL Mean Corpuscular Hemoglobin 30.2 PG Mean Corpuscular Hemoglobin Concent 33.8 % Red Cell Distribution Width 18.1 % Platelet Count 174 TH/MM3 Mean Platelet Volume 7.0 FL Neutrophils (%) (Auto) 66.6 % Lymphocytes (%) (Auto) 20.8 % Monocytes (%) (Auto) 10.4 % Eosinophils (%) (Auto) 1.8 % Basophils (%) (Auto) 0.4 % Neutrophils # (Auto) 3.9 TH/MM3 Lymphocytes # (Auto) 1.2 TH/MM3 Monocytes # (Auto) 0.6 TH/MM3 Eosinophils # (Auto) 0.1 TH/MM3 Basophils # (Auto) 0.0 TH/MM3 CBC Comment DIFF FINAL Differential Comment Laboratory Tests Test 03/28/17 07:23 Blood Urea Nitrogen 7 MG/DL Creatinine 0.59 MG/DL Random Glucose 86 MG/DL Total Protein 8.0 GM/DL Albumin 1.8 GM/DL Calcium Level 8.4 MG/DL Phosphorus Level 3.1 MG/DL Magnesium Level 1.5 MG/DL Alkaline Phosphatase 65 U/L Aspartate Amino Transf (AST/SGOT) 34 U/L Alanine Aminotransferase (ALT/SGPT) 15 U/L Total Bilirubin 0.3 MG/DL Sodium Level 133 MEQ/L Potassium Level 3.6 MEQ/L Chloride Level 99 MEQ/L Carbon Dioxide Level 27.2 MEQ/L Anion Gap 7 MEQ/L Estimat Glomerular Filtration Rate 128 ML/MIN Microbiology Date/Time Source Procedure Growth Status 03/27/17 09:40 Stool Stool Stool Occult Blood (JULIO) - Final HEMOCCULT POSITIVE Complete 03/28/17 22:20 Urine Clean Catch Urine Culture Pending Received Physical Exam GENERAL: awake and alert, not in respiratory distress. SKIN: Warm and dry. No generalized rash, no ecchymoses and no evidence of embolic lesions. HEAD: Atraumatic. Normocephalic. No temporal wasting, or tenderness. EYES: [place] conjunctiva. No petechia or hemorrhage. Pupils equal, round and reactive to light. Extraocular movements full and intact. No scleral icterus. No injection or drainage. EARS, NOSE AND THROAT: Nose without bleeding or purulent nasal discharge. No sinus tenderness. Mucous membranes pink and moist. No oral lesions noted. NECK: Trachea midline. Supple and not tender, no meningeal signs. Has some small cervical LN CARDIOVASCULAR: Regular rate and rhythm. No murmurs, rubs or gallops heard RESPIRATORY: Clear to auscultation. Breath sounds equal bilaterally. No rales , wheezing or rhonchi ABDOMEN: Soft, non-tender, nondistended. Bowel sounds present and normoactive. No guarding. No rebound. No organomegaly. EXTREMITIES: RLE wounds clean, with red base, no purulence now, no odor. Incisions look ok, NEUROLOGICAL: Grossly non-focal. PSYCHIATRIC: Normal affect, calm and cooperative. LINE: No evidence of infection Assessment & Plan Remarks IMPRESSION Sepsis due to infected R leg wounds, resolved Infected wounds R leg, prob ischemic ulcers - better PVD, S/P bypass Known tobacco and ETOH abuse Low grade temps, resolved RECOMMENDATION Give Levaquin x 10 days on D/C - I printed the Rx D/C plans noted D/W Adrienne Monets De Oca MD Mar 29, 2017 12:38
--- NOTE | 2017-03-29 13:42 | HHI.DS ---
Discharge Summary Admission Date Mar 19, 2017 at 12:21 Discharge Date: Mar 29, 2017 Admitting Diagnosis (1) Cellulitis of leg, right ICD Code: L03.115 - Cellulitis of right lower limb (2) UTI (urinary tract infection) ICD Code: N39.0 - Urinary tract infection, site not specified (3) HTN (hypertension) ICD Code: I10 - Essential (primary) hypertension (4) Alcohol abuse ICD Code: F10.10 - Alcohol abuse, uncomplicated (5) Tobacco abuse ICD Code: Z72.0 - Tobacco use Status: Chronic Procedures External iliac endarterectomy, femoral-popliteal bypass and popliteal endarterectomy. Brief History - From Admission This is a 56-year-old Homeless female with a PMH of HTN, Alcohol Abuse and Tobacco Abuse who presented to the ER with complaints of right lower extremity cellulitis. Previously following w/ Dr. Humphrey for wound care, however pt w/ poor follow-up and non-compliant. Reports worsening drainage from right leg for several days. Denies fever, chills or sick contacts. On arrival, BP 199/84 , HR 104, O2 sat 99% on RA, Afebrile. WBC normal. Normal neutrophil calm. Lactic Acid 3.2, repeat 1.2. CRP 0.83. INR 1.0. UA positive for UTI. Right Tib Fib X-ray with no acute abnormalities. S/p Wound/Blood Cultures in ER in addition to Vanc/Zosyn. CBC/BMP: 03/28/17 0723 03/28/17 0723 Significant Findings Laboratory Tests Test 03/27/17 01:00 03/27/17 08:33 03/27/17 18:25 03/28/17 07:23 Red Blood Count 2.65 MIL/MM3 (4.00-5.30) 2.94 MIL/MM3 (4.00-5.30) 2.97 MIL/MM3 (4.00-5.30) Hemoglobin 7.9 GM/DL (11.6-15.3) 9.1 GM/DL (11.6-15.3) 8.5 GM/DL (11.6-15.3) 9.0 GM/DL (11.6-15.3) Hematocrit 23.4 % (35.0-46.0) 26.5 % (35.0-46.0) 25.4 % (35.0-46.0) 26.5 % (35.0-46.0) Red Cell Distribution Width 20.2 % (11.6-17.2) 18.4 % (11.6-17.2) 18.1 % (11.6-17.2) Monocytes (%) (Auto) 8.6 % (0.0-8.0) 11.7 % (0.0-8.0) 10.4 % (0.0-8.0) Random Glucose 115 MG/DL (74-106) Albumin 1.7 GM/DL (3.4-5.0) 1.8 GM/DL (3.4-5.0) 1.8 GM/DL (3.4-5.0) Calcium Level 8.1 MG/DL (8.5-10.1) 8.0 MG/DL (8.5-10.1) 8.4 MG/DL (8.5-10.1) Sodium Level 133 MEQ/L (136-145) 133 MEQ/L (136-145) 133 MEQ/L (136-145) Chloride Level 97 MEQ/L (98-107) 97 MEQ/L (98-107) Mean Platelet Volume 6.9 FL (7.0-11.0) Potassium Level 3.4 MEQ/L (3.5-5.1) Test 03/28/17 22:20 Urine Turbidity HAZY (CLEAR) Urine Occult Blood SMALL (NEG) Urine Leukocyte Esterase LARGE (NEG) Urine WBC 14 /hpf (0-5) Urine Mucus FEW /lpf (OCC) Urine Yeast (Budding) RARE (NONE) PE at Discharge GENERAL: Awake alert talkative and cooperative SKIN: Warm and dry. Right leg is dressed Steri-Strips in place HEAD: Atraumatic. Normocephalic. EYES: Pupils equal and round. No scleral icterus. No injection or drainage. EOMI ENT: No nasal bleeding or discharge. Mucous membranes pink and moist. Tongue is midline NECK: Trachea midline. No JVD. Supple CARDIOVASCULAR: Regular rate and rhythm. S1 and S2 no S3-S4 no heave or thrill or rub or gallop RESPIRATORY: No accessory muscle use. Clear to auscultation. Breath sounds equal bilaterally. GASTROINTESTINAL: Abdomen soft, non-tender, nondistended. Hepatic and splenic margins not palpable. MUSCULOSKELETAL: Extremities without clubbing, cyanosis, or edema. No obvious deformities. NEUROLOGICAL: Awake and alert. No obvious cranial nerve deficits. Motor grossly within normal limits. 4 out of 5 muscle strength in the arms and legs. Normal speech. Right lower extremity is dressed PSYCHIATRIC: Appropriate mood and affect; insight and judgment normal. Hospital Course Mrs. Woodruff is a 56-year-old female. She has known vascular disease. She came in with right leg cellulitis. Some of this was secondary to infection and she has responded well to antibiotics. However, some of this was related to vascular disease. She had a external iliac endarterectomy, femoral-popliteal bypass and popliteal endarterectomy. With antibiotic she has been doing well. GI bleed occurred but GI workup was negative, etiology may be related to blood thinners and they were discontinued. She now has spontaneous improvement in her hemoglobin levels through time, documented. At this point she is medically stable for discharge to home. She'll continue wound care and PT at home at time of discharge. Pt Condition on Discharge: Stable Discharge Disposition: Discharge Home Discharge Time: <= 30 minutes Discharge Instructions DIET: Follow Instructions for: As Tolerated, No Restrictions Activities you can perform: Regular-No Restrictions Follow up Referrals: PCP Follow-up PCP Follow-up Vascular Surgery Vascular Surgery New Medications: Levofloxacin (Levaquin) 500 Mg Tablet 500 MG PO DAILY for Infection for 10 Days, #10 TAB 0 Refills Multiple Vitamin (Multi Vitamin Daily) 1 Tab Tab 1 TAB PO DAILY for vitamin supplement for 30 Days, #30 TAB 0 Refills Lisinopril (Lisinopril) 20 Mg Tab 40 MG PO DAILY for hypertension for 30 Days, #60 TAB 0 Refills Continued Medications: Acetaminophen (Tylenol) 325 Mg Tab 650 MG PO Q6H PRN for PAIN SCALE 1 TO 10, #20 TAB 0 Refills Albuterol 18 GM Inh (Ventolin Hfa 18 GM Inh) Unknown Strength Aer Unknown Dose INH Q4H PRN for SHORTNESS OF BREATH, #1 INHALER 0 Refills Carvedilol (Carvedilol) 3.125 Mg Tab 3.125 MG PO BID, #60 TAB 0 Refills Clopidogrel (Plavix) Unknown Strength Tab Unknown Dose PO DAILY for Blood Clot Prevention, #30 TAB 0 Refills Cyclobenzaprine (Flexeril) 10 Mg Tab 10 MG PO TID for Muscle Spasm, #90 TAB 0 Refills Ferrous Sulfate (Ferrous Sulfate) 325 Mg (65 Mg Iron) Tablet 325 MG PO BIDPC for Nutritional Supplement, #60 TAB 0 Refills Pantoprazole (Protonix) 40 Mg Tab 40 MG PO DAILY for Ulcer Prevention, #30 TAB 0 Refills Discontinued Medications: Sulfamethoxazole-Trimethoprim (Bactrim DS) 800-160 Mg Tab 1 TAB PO BID for Infection, #14 TAB 0 Refills Jj Cisse MD Mar 29, 2017 13:42
--- NOTE | 2017-03-29 13:44 | HHI.GIFU ---
Subjective Remarks Up in chair. Dressed and ready to be discharged. No further bleeding. Tolerating diet. No n/v/abdominal pain. Objective Vitals I&O Vital Signs Date Time Temp Pulse Resp B/P (MAP) Pulse Ox O2 Delivery O2 Flow Rate FiO2 03/29/17 12:00 96.9 92 20 122/70 (87) 97 03/29/17 11:27 18 03/29/17 08:00 96.9 79 19 107/66 (80) 96 03/29/17 00:00 99.5 91 16 121/77 (92) 96 03/28/17 20:00 98.2 76 16 124/87 (99) 92 03/28/17 16:00 96.1 64 18 122/72 (89) 92 I/O 03/28/17 03/28/17 03/28/17 03/29/17 03/29/17 03/29/17 07:00 15:00 23:00 07:00 15:00 23:00 Intake Total 100 ml 300 ml 400 ml 120 ml Balance 100 ml 300 ml 400 ml 120 ml Intake Oral 400 ml 120 ml IV Total 100 ml Other 300 ml # Voids 6 2 3 # Bowel Movements 6 2 Laboratory Laboratory Tests Test 03/28/17 22:20 Urine Color YELLOW Urine Turbidity HAZY Urine pH 7.0 Urine Specific [place] 1.011 Urine Protein TRACE Urine Glucose (UA) NEG Urine Ketones NEG Urine Occult Blood SMALL Urine Nitrite NEG Urine Bilirubin NEG Urine Urobilinogen LESS THAN 2.0 Urine Leukocyte Esterase LARGE Urine RBC 2 Urine WBC 14 Urine Squamous Epithelial Cells 7 Urine Mucus FEW Urine Yeast (Budding) RARE Microscopic Urinalysis Comment CULTURE INDICATED Date/Time Source Procedure Growth Status 03/19/17 21:00 Blood Peripheral Aerobic Blood Culture - Final NO GROWTH IN 5 DAYS Complete 03/19/17 21:00 Blood Peripheral Anaerobic Blood Culture - Final NO GROWTH IN 5 DAYS Complete 03/27/17 09:40 Stool Stool Stool Occult Blood (JULIO) - Final HEMOCCULT POSITIVE Complete 03/28/17 22:20 Urine Clean Catch Urine Culture Pending Received 03/17/17 17:00 Wound Leg Gram Stain - Final Complete 03/17/17 17:00 Wound Culture - Final Group A Beta Strep Proteus Mirabilis Staphylococcus Aureus Complete Imaging Last Impressions Carotid Artery Ultrasound 03/19/17 0000 Signed Impressions: Service Date/Time: Sunday, March 19, 2017 17:35 - CONCLUSION: 1. Mild patchy atherosclerosis of both carotids. No hemodynamically significant narrowing. 2. Retrograde flow within the right vertebral artery suggesting a right subclavian artery stenosis with steal phenomenon. Trevor Young MD Aorta w/Runoff CTA 03/19/17 0000 Signed Impressions: Service Date/Time: Sunday, March 19, 2017 18:47 - CONCLUSION: 1. No significant aortic stenosis or iliac inflow disease. 2. Extensive bilateral SFA disease and moderate bilateral above-knee popliteal artery disease, as above. Patient would likely benefit from outflow intervention. 3. Bulky plaque at the origin of the anterior tibial arteries bilaterally and right tibioperoneal trunk. Otherwise, three-vessel runoff to the foot. 4. 1.6 cm indeterminate right adrenal mass. This can be further evaluated with adrenal mass protocol CT or MRI exam on an outpatient basis as clinically warranted. Gautam Alba MD Lower Extremity Ultrasound 03/18/17 0000 Signed Impressions: Service Date/Time: Saturday, March 18, 2017 12:49 - CONCLUSION: Negative exam with no evidence of abscess. Gonsalo Burris MD Tibia/Fibula X-Ray 03/17/17 0000 Signed Impressions: Service Date/Time: March 17:36 - CONCLUSION: 1. No acute bony abnormality identified. Jj Rolle MD Physical Exam HEENT: Normocephalic; atraumatic; no jaundice. CHEST: CTA CARDIAC: RRR ABDOMEN: Soft, nondistended, nontender; no hepatosplenomegaly; bowel sounds are present in all four quadrants. EXTREMITIES: No clubbing, cyanosis, or edema. SKIN: Normal; no rash; no jaundice. SERVICE ATTENDANT CAFETERIA: No focal deficits; alert and oriented times three. Assessment and Plan Plan ASSESSMENT: - GIB, BRBPR. S/P Colonoscopy (03/28/17)---> 1. Normal colon-random biopsies from ascendig, descending proctitis-biopsy, 2. Retroflexed views revealed internal hemorrhoids, 3. Retroflexed views revealed medium internal hemorrhoids, 4. Revealed external hemorrhoids 5. Revealed decreased sphincter tone, Pathology pending. No further bleeding. Most likley related to hemorrhoids. Anucort supp., high fiber diet, fiber supplements. HH stable 9.0/26.5. - Right lower extremity cellulitis, per attending. ID and wound care following. - PAD, s/p external iliac endarterectomy, femoral-popliteal bypass and popliteal endarterectomy (03/22/17). Vascular surgeon following. PLAN: - High fiber diet. - Await pathology - Benefiber 2 tsp daily - Avoid NSAIDs and ASA - Probiotics - Rpt. Colonoscopy 3 years - Anucort suppository BID - FU HAI 2 weeks - Pt seen and examined by Dr. Ram and myself and this note is written on her behalf Monika Nails Mar 29, 2017 13:44
== END 2017-03-29 14:53 | disposition home or self-care (01) | DRG 854 ==
LOC: NEPE 15:15 → NEDA 20:01 → NEPHCDU 21:29 → OBSVTOIN 03-19 12:21 → HCIS 03-19 14:01 → N07A 03-24 16:14
PROVIDERS: ADMIT Hospitalist; ATTEND Hospitalist
PROC: 30233N1 Transfusion of Nonautologous Red Blood Cells into Peripheral Vein, Percutaneous Approach (ICD-10-PCS; 2017-03-21)
PROC: 04CH0ZZ Extirpation of Matter from Right External Iliac Artery, Open Approach (ICD-10-PCS; 2017-03-22)
PROC: 04CM0ZZ Extirpation of Matter from Right Popliteal Artery, Open Approach (ICD-10-PCS; 2017-03-22)
PROC: 041K0JL Bypass Right Femoral Artery to Popliteal Artery with Synthetic Substitute, Open Approach (ICD-10-PCS; principal; 2017-03-22 10:22)
PROC: 0DBK8ZX Excision of Ascending Colon, Via Natural or Artificial Opening Endoscopic, Diagnostic (ICD-10-PCS; 2017-03-28)
PROC: 0DBP8ZX Excision of Rectum, Via Natural or Artificial Opening Endoscopic, Diagnostic (ICD-10-PCS; 2017-03-28)
PROC: 0DBM8ZX Excision of Descending Colon, Via Natural or Artificial Opening Endoscopic, Diagnostic (ICD-10-PCS; 2017-03-28)
DX: A41.9 Sepsis, unspecified organism (principal); L03.115 Cellulitis of right lower limb; E11.622 Type 2 diabetes mellitus with other skin ulcer; E11.51 Type 2 diabetes mellitus with diabetic peripheral angiopathy without gangrene; E27.8 Other specified disorders of adrenal gland; I95.9 Hypotension, unspecified; D62 Acute posthemorrhagic anemia; E87.1 Hypo-osmolality and hyponatremia; L97.919 Non-pressure chronic ulcer of unspecified part of right lower leg with unspecified severity; K92.1 Melena; N39.0 Urinary tract infection, site not specified; B95.5 Unspecified streptococcus as the cause of diseases classified elsewhere; B96.4 Proteus (mirabilis) (morganii) as the cause of diseases classified elsewhere; I70.201 Unspecified atherosclerosis of native arteries of extremities, right leg; I70.8 Atherosclerosis of other arteries; K64.8 Other hemorrhoids; K62.89 Other specified diseases of anus and rectum; I16.0 Hypertensive urgency; I10 Essential (primary) hypertension; E83.42 Hypomagnesemia; E87.6 Hypokalemia; F10.10 Alcohol abuse, uncomplicated; Z91.19 Patient's noncompliance with other medical treatment and regimen; Z91.14 Patient's other noncompliance with medication regimen; F17.210 Nicotine dependence, cigarettes, uncomplicated; Z59.0 Homelessness; Z23 Encounter for immunization
CPT/HCPCS: 36430; 73590; 75635; 76882; 76937; 80048; 80053; 80202; 81001; 82272; 82948; 83036; 83605; 83735; 84100; 84439; 84443; 85014; 85018; 85025; 85610; 85730; 86077; 86140; 86403; 86850; 86870; 86880; 86900; 86901; 86920; 86922; 87040; 87070; 87077; 87086; 87147; 87186; 87493; 88305; 90686; 90732; 93005; 93880; 93922; 96361; 96365; 96366; 96372; 96375; C1768; C9113; G0378; J0295; J0360; J0690; J1644; J1815; J2270; J2405; J2543; J2710; J2720; J3010; J3370; J3475; J7030; J7050; J7120; P9016; Q2038; Q9967

== ENCOUNTER → 2017-05-25 | Outpatient (CLI) | payer OTHER ==
[~2017-05-25] MED LIST changes: -BACT800T5 PO; +LEVA500T33 PO; +LISI-515 PO; +MULT1TAB46 PO
[2017-05-25 11:50] LABS: BASOPHIL % 0.5 % (0.0-2.0); EOSINOPHIL # 0.1 TH/MM3 (0-0.4); EOSINOPHIL % 2.6 % (0.0-4.0); HEMATOCRIT 29.1 % (35.0-46.0); HEMOGLOBIN 9.6 GM/DL (11.6-15.3); LYMPH % 29.8 % (9.0-44.0); LYMPHOCYTE # 1.6 TH/MM3 (1.0-4.8); MEAN CELL VOLUME 87.6 FL (80.0-100.0); MEAN CORPUSCULAR HEMOGLOBIN 29.1 PG (27.0-34.0); MEAN CORPUSCULAR HGB CONC 33.2 % (32.0-36.0); MEAN PLATELET VOLUME 6.8 FL (7.0-11.0); MONO % 10.7 % (0.0-8.0); MONOCYTE # 0.6 TH/MM3 (0-0.9); NEUT % 56.4 % (16.0-70.0); PLATELET COUNT 229 TH/MM3 (150-450); RED BLOOD COUNT 3.32 MIL/MM3 (4.00-5.30); RED CELL DISTRIBUTION WIDTH 21.5 % (11.6-17.2); WHITE BLOOD COUNT 5.3 TH/MM3 (4.0-11.0)
[2017-05-25 12:19] LABS: CHOLESTEROL 104 MG/DL (120-200)
[2017-05-25 12:21] LABS: ALKALINE PHOSPHATASE 128 U/L (45-117); CHOLESTEROL/ HDL RATIO 2.58 RATIO; HDL CHOLESTEROL 40.2 MG/DL (40.0-60.0); LDL CHOLESTEROL 48 MG/DL (0-99); TOTAL BILIRUBIN ADULT 0.2 MG/DL (0.2-1.0); TOTAL PROTEIN 8.9 GM/DL (6.4-8.2); TRIGLYCERIDES 81 MG/DL (42-150)
[2017-05-25 12:26] LABS: ALBUMIN 2.7 GM/DL (3.4-5.0); ALT (GPT) 24 U/L (10-53); AST (GOT) 42 U/L (15-37); BICARBONATE 24.7 MEQ/L (21.0-32.0); BLOOD UREA NITROGEN 11 MG/DL (7-18); CALCIUM 8.6 MG/DL (8.5-10.1); CHLORIDE 104 MEQ/L (98-107); CREATININE 0.86 MG/DL (0.50-1.00); GLOMERULAR FILTRATION RATE 83 ML/MIN (>89); GLUCOSE,FASTING 65 MG/DL (74-99); SODIUM (NA) 135 MEQ/L (136-145)
[2017-05-25 15:56] LABS: HEMOGLOBIN A1C 5.9 % (4.3-6.0)
== END ==
LOC: CLAB 10:58
PROVIDERS: ATTEND Family Medicine
DX: E11.9 Type 2 diabetes mellitus without complications (principal)
CPT/HCPCS: 36415; 80053; 80061; 82043; 83036; 85025